=== PATIENT | female | born 1930 | race Caucasian/White ===

== ENCOUNTER 2017-02-23 02:47 | Emergency (ER) | payer MEDICARE ==
[~2017-02-23] VITALS: Ht 167.6 cm; Wt 61.8 kg
[~2017-02-23 02:47] MED LIST: ASPI81TA4 PO; CARV12.5 PO; FURO20TA2 PO; Losartan; METF500T PO; OMEGCAP2 PO; PRAV40TA2 PO; PREDNISOLONE; TYLE325T5 PO; ZOLO50TA PO
[2017-02-23] MEDS ORDERED: SERT50TA PO (03:00)
[2017-02-23] MEDS ORDERED: MORPHINE 10 MG/ML 1ML VIAL IM ONE (04:15)
[2017-02-23] MEDS ORDERED: VALI2TAB PO (09:06)
[2017-02-23] MEDS ORDERED: ONDANSETRON 4 MG ORAL DISINTEGRATING TAB (S0181) PO ONE (09:45)
[2017-02-23 10:29] VITALS: BP 148/67
== END 2017-02-23 10:32 | disposition home or self-care (01) ==
LOC: M ED 02:47
DX: M62.830 Muscle spasm of back (principal); I10 Essential (primary) hypertension; E11.9 Type 2 diabetes mellitus without complications; I25.9 Chronic ischemic heart disease, unspecified; F41.9 Anxiety disorder, unspecified; Z85.038 Personal history of other malignant neoplasm of large intestine; Z95.0 Presence of cardiac pacemaker; Z79.899 Other long term (current) drug therapy; Z79.82 Long term (current) use of aspirin; Z79.84 Long term (current) use of oral hypoglycemic drugs
CPT/HCPCS: 96372; 96374; 99283; J3360

== ENCOUNTER → 2017-04-16 | Outpatient (CLI) | payer MEDICARE ==
[~2017-04-16] MED LIST changes: +SERT50TA PO; +VALI2TAB PO
--- NOTE | 2017-04-16 09:12 | REP ---
CT Head without contrast HISTORY: Leg pain COMPARISON: None Areas of decreased attenuation are present in the periventricular white matter. This represents small-vessel ischemic disease. There is no intraparenchymal hemorrhage, acute infarct, mass or midline shift. The ventricular system and cortical sulci as well as subarachnoid space in the posterior fossa are dilated consistent with moderate volume loss. There is no extra cerebral collection. There is no fracture. Mucosal thickening is present in the left sphenoid sinus. IMPRESSION: 1. Small vessel ischemic disease. 2. Moderate volume loss. Signed by Estrada Parry MD 04/16/2017 09:04 A
== END ==
LOC: M RAD 08:39
PROVIDERS: ATTEND Psychiatry & Neurology Neurology
DX: G40.89 Other seizures (principal); M79.604 Pain in right leg

== ENCOUNTER → 2017-05-07 | Outpatient (CLI) | payer MEDICARE ==
--- NOTE | 2017-05-07 15:40 | REP ---
CT LUMBAR SPINE WITHOUT CONTRAST: HISTORY: Back pain. A diffuse disc bulge is present at the L1-2 level. There is minimal compression of the thecal sac. There is hypertrophy of the posterior articulating facets. The L1 nerves exit the neural foramina without compression. A diffuse disc bulge is present at the L2-3 level. There is hypertrophy of the ligamenta flava and posterior articulating facets. These findings produce moderate central canal stenosis. The L2 nerves exit the neural foramina without compression. A diffuse disc bulge is present at the L3-4 level. There is hypertrophy of the ligamenta flava and posterior articulating facets. These findings produce moderate central canal stenosis. The L3 nerves exit the neural foramina without compression. A diffuse disc bulge is present at the L4-5 level. There is hypertrophy of the ligamenta flava and posterior articulating facets. These findings produce severe central canal stenosis. The L4 nerves exit the neural foramina without compression. A diffuse disc bulge is present at the L5-S1 level. This abuts the thecal sac and S1 nerves. There is hypertrophy of the posterior articulating facets. There is compression of the L5 nerves in the neural foramina. The L2-3 through L5-S1 intervertebral discs are decreased in height. Vacuum phenomenon is present at the L4-5 and L5-S1 levels. These findings are consistent with disc degeneration. There is no subluxation. IMPRESSION: 1. Diffuse disc bugle at the L1-2 level with minimal thecal sac compression. 2. Moderate central canal stenosis at the L2-3 and L3-4 levels secondary to disc bulge, ligamentous and facet hypertrophy. 3. Severe central canal stenosis at the L4-5 level secondary to disc bulge, ligamentous and facet hypertrophy. 4. Diffuse disc bulge at the L5-S1 level. This abuts the thecal sac and S1 nerves. There is compression of the L5 nerves in the neural foramina. Signed by Estrada Parry MD 05/07/2017 05:06 P
== END ==
LOC: M RAD 14:31
PROVIDERS: ATTEND Orthopaedic Surgery
DX: M51.26 Other intervertebral disc displacement, lumbar region (principal); M48.061 Spinal stenosis, lumbar region without neurogenic claudication

== ENCOUNTER → 2018-05-03 | Outpatient (REF) | payer MEDICARE ==
[2018-05-03 13:27] LABS: URIC ACID 4.3 MG/DL (2.6-6.0)
== END ==
LOC: M LAB REF 12:53
DX: I12.9 Hypertensive chronic kidney disease with stage 1 through stage 4 chronic kidney disease, or unspecified chronic kidney disease (principal)
CPT/HCPCS: 84550

== ENCOUNTER → 2018-07-04 | Outpatient (CLI) | payer MEDICARE ==
--- NOTE | 2018-07-04 10:56 | REP ---
CT CHEST WITHOUT CONTRAST: HISTORY: Nonspecific abnormal finding of the lung field. Comparison CT study of the chest is from April 06, 2018. May 27, [address] study is also reviewed. CT FINDINGS: There are innumerable scattered nodular opacities in the lungs bilaterally. These have increased considerably in number since the 2010 prior study. There is diffuse peribronchial thickening suggestive of bronchitis. No definite bronchiectasis. There is some chronic atelectasis in the lingular segment of the left lower lobe, which is unchanged from both prior studies. There is linear fibrosis in the left lower lobe unchanged. There is a pleural-based opacity in the right lower lobe posterolaterally which is unchanged from the most recent prior study of April 06, 2018. Extensive vascular calcification is noted. There are scattered stable lymph nodes in the precarinal and AP window region of the mediastinum unchanged from most recent prior study of April 06, 2018. Pacemaker is seen in the right heart via the left side. No adrenal abnormality is observed. IMPRESSION: Innumerable bilateral pulmonary nodules unchanged from most recent prior study of April 06, 2018. Pleural-based opacity right lower lobe unchanged from most recent prior study. Chronic fifth fibroatelectatic changes left base. Electronically Signed by Piero Gomez MD 07/04/2018 11:00 A
== END ==
LOC: M RAD 09:21
PROVIDERS: ATTEND Internal Medicine Pulmonary Disease
DX: R91.8 Other nonspecific abnormal finding of lung field (principal)

== ENCOUNTER → 2018-09-19 | Outpatient (REF) | payer MEDICARE ==
[2018-09-23 00:07] LABS: INFLUENZA A VIRUS TITER Negative (Neg:<1:8); INFLUENZA B VIRUS TITER Negative (Neg:<1:8)
== END ==
LOC: M LAB REF 17:06
PROVIDERS: ATTEND Internal Medicine Pulmonary Disease
DX: J44.9 Chronic obstructive pulmonary disease, unspecified (principal)

== ENCOUNTER 2018-10-01 10:21 | Inpatient (IN) | payer MEDICARE ==
[~2018-10-01] VITALS: Ht 165.1 cm; Wt 62.5 kg
[~2018-10-01 10:21] MED LIST changes: +SERT-141 PO; -SERT50TA PO
[2018-10-01] MEDS ORDERED: VITA200016 PO ×2 (10:41→12:00)
[2018-10-01] MEDS ORDERED: SIMV40TA2 PO ×2 (10:41→12:00)
[2018-10-01] MEDS ORDERED: HYDR12.55 PO (10:41)
[2018-10-01] MEDS ORDERED: PRED10TA2 (10:41)
[2018-10-01] MEDS: IPRATROPIUM 0.5MG/ALBUTEROL 2.5MG INH SOL UD 3ML (DUONEB)(J7620) NEB PRN ×2 (10:43→11:27)
[2018-10-01] MEDS ORDERED: methylPREDNISolone INJ 125 MG/2 ML VIAL (J2930) IV ONE (10:45)
--- NOTE | 2018-10-01 10:49 | REP ---
Clinical: Cough and dyspnea. Comparison: 09/20/2018. Findings: Mediastinum and cardiac silhouette are stable. Lung brock demonstrate diffuse chronic interstitial changes with superimposed bibasilar infiltrates (left greater than right). No pneumothorax. Skeletal structures stable. Impression: Chronic changes with superimposed bibasilar infiltrates (left greater than right). Electronically Signed by Marcel Ruby MD 10/01/2018 10:40 A
[2018-10-01 11:18] LABS: VENOUS BASE EXCESS 3.3 (-2.0-2.0); VENOUS HCO3 28.2 MEQ/L (23.0-27.0); VENOUS O2 SATURATION 92.5 % (60.0-80.0); VENOUS PARTIAL PRESSURE CO2 44.1 mmHg (38.0-50.0); VENOUS PARTIAL PRESSURE O2 66.2 mmHg (30.0-50.0); VENOUS PH 7.424 UNITS (7.330-7.430); VENOUS STANDARD HCO3 27.3 MEQ/L; VENOUS TOTAL CO2 29.6 MEQ/L (24.0-28.0)
[2018-10-01 11:31] LABS: BASO % 0.1 % (0.0-1.0); EOS % 0.1 % (0.0-3.0); HEMATOCRIT 40.1 % (36.0-47.0); HEMOGLOBIN 12.8 g/dl (12.0-15.5); LYMPH % 0.9 % (24.0-44.0); MEAN CORPUSCULAR HEMOGLOBIN 26.9 pg (27.0-33.0); MEAN CORPUSCULAR HGB CONC 31.9 g/dl (32.0-36.5); MEAN CORPUSCULAR VOLUME 84.4 fl (80.0-96.0); MONO # 0.9 10^3/uL (0.0-0.8); MONO % 5.6 % (0.0-5.0); NEUTROPHILS # 14.1 10^3/uL (1.8-7.7); NEUTROPHILS % 92.6 % (36.0-66.0); PLATELET COUNT, AUTOMATED 192 10^3/uL (150-450); RED BLOOD COUNT 4.75 10^6/uL (4.00-5.40); WHITE BLOOD COUNT 15.3 10^3/uL (4.0-10.0)
[2018-10-01 11:45] LABS: INFLUENZA A AMPLIFICATION POSITIVE (NEGATIVE); INFLUENZA B AMPLIFICATION NEGATIVE (NEGATIVE)
[2018-10-01] MEDS ORDERED: SERT-138 PO (12:00)
[2018-10-01] MEDS ORDERED: ASPI81TA26 PO (12:00)
[2018-10-01] MEDS ORDERED: HYDR25TAB PO (12:00)
[2018-10-01] MEDS ORDERED: CARV12.5 PO (12:00)
[2018-10-01] MEDS ORDERED: TYLE325T5 PO (12:00)
[2018-10-01] MEDS ORDERED: GLIP-162 PO (12:00)
[2018-10-01] MEDS ORDERED: ANOR1AER INH (12:00)
[2018-10-01 12:04] LABS: LYMPH # 0.1 10^3/uL (1.5-4.5)
[2018-10-01] MEDS ORDERED: LORA0.5T11 PO (12:07)
[2018-10-01] MEDS ORDERED: METF500T4 PO (12:07)
[2018-10-01] MEDS ORDERED: PRED10TA2 PO (12:07)
[2018-10-01 13:17] LABS: BLOOD UREA NITROGEN 41 MG/DL (7-18); CHLORIDE LEVEL 99 MEQ/L (98-107); CREATININE FOR GFR 1.07 MG/DL (0.55-1.30); GLOMERULAR FILTRATION RATE 51.8 (>32); GLUCOSE, FASTING 157 MG/DL (70-100); SODIUM LEVEL 136 MEQ/L (136-145)
[2018-10-01 13:18] LABS: ALT/SGPT 33 U/L (12-78); BILIRUBIN,DIRECT 0.2 MG/DL (0.0-0.2); BILIRUBIN,TOTAL 0.6 MG/DL (0.2-1.0); CALCIUM LEVEL 8.4 MG/DL (8.8-10.2); CARBON DIOXIDE LEVEL 31 MEQ/L (21-32); CK-MB VALUE MASS < 1.0 NG/ML (<3.6); CPK CREATINE PHOSPHOKINASE 35 U/L (26-192); TOTAL PROTEIN 5.8 GM/DL (6.4-8.2)
[2018-10-01 13:19] LABS: ALBUMIN 2.4 GM/DL (3.2-5.2); NT-PRO BNP 7434 PG/ML (<450); TROPONIN I 0.14 NG/ML (< 0.10)
[2018-10-01] MEDS ORDERED: OSELTAMIVIR PHOSPHATE 75 MG CAP (TAMIFLU) PO ONE (13:30)
[2018-10-01] MEDS: IPRATROPIUM 0.5MG/ALBUTEROL 2.5MG INH SOL UD 3ML (DUONEB)(J7620) NEB SCH ×2 (14:00→20:12)
--- NOTE | 2018-10-01 14:13 | ECGEPIP ---
Stationary ECG Study [facility] - ED Test Date: 2018-10-01 Pat Name: SHAHID DOWNEY Department: Room: - Gender: F [employer] C[employer]: : [id number] Requested By: Chloe Brennan Order Number: [id number] Reading MD: Chloe Brennan Measurements Intervals [place] Rate: 66 P: [place]: 0 QRS: -66 QRSD: 152 T: 104 QT: 460 QTc: 484 Interpretive Statements ELECTRONIC VENTRICULAR PACEMAKER ABNORMAL RHYTHM ECG SIMILAR 01/18/13 Electronically Signed On 10-01-2018 14:13:21 EDT by Chloe Brennan
[2018-10-01] MEDS ORDERED: DEXTROSE 50% 50 ML SYRINGE IV PRN (15:00)
[2018-10-01] MEDS ORDERED: LORazepam 0.5 MG TAB PO PRN (15:00)
[2018-10-01] MEDS ORDERED: GLUCOSE 4 GM CHEW TABLET PO PRN (15:00)
[2018-10-01] MEDS ORDERED: GLUCAGON FOR INJ 1 MG VIAL (J1610) SC PRN (15:00)
[2018-10-01] MEDS ORDERED: ACETAMINOPHEN TAB 650MG DOSE (2X325MG) PO PRN (15:00)
[2018-10-01] MEDS ORDERED: PILL CRUSHER/CUTTER 1 EACH XX PRN (15:15)
[2018-10-01 17:10] VITALS: BP 125/61
[2018-10-01] MEDS: HumaLOG INSULIN (NovoLOG) PER UNIT SC SCH ×2 (17:52→20:37)
[2018-10-01] MEDS: methylPREDNISolone INJ 125 MG/2 ML VIAL (J2930) IV SCH (18:30)
[2018-10-01 20:00] VITALS: BP 116/56
[2018-10-01] MEDS: CARVedilol 12.5 MG TAB PO SCH (20:35)
[2018-10-01] MEDS: SIMVASTATIN 40 MG TAB PO SCH (20:36)
[2018-10-01] MEDS: OSELTAMIVIR PHOSPHATE 30MG CAPSULE PO SCH (20:36)
[2018-10-01] MEDS: guaiFENesin ER 600 MG TAB PO SCH (20:36)
[2018-10-01] MEDS: SERTRALINE 100 MG TAB PO SCH (20:36)
[2018-10-02] VITALS (7 sets, daily range): BP systolic 109–182; BP diastolic 54–72
[2018-10-02] MEDS: IPRATROPIUM 0.5MG/ALBUTEROL 2.5MG INH SOL UD 3ML (DUONEB)(J7620) NEB SCH ×4 (00:10→19:27)
[2018-10-02] MEDS: methylPREDNISolone INJ 125 MG/2 ML VIAL (J2930) IV SCH ×2 (03:51→11:24)
[2018-10-02 05:15] LABS: HEMATOCRIT 39.9 % (36.0-47.0); HEMOGLOBIN 12.6 g/dl (12.0-15.5); MEAN CORPUSCULAR HEMOGLOBIN 26.9 pg (27.0-33.0); MEAN CORPUSCULAR HGB CONC 31.6 g/dl (32.0-36.5); MEAN CORPUSCULAR VOLUME 85.1 fl (80.0-96.0); PLATELET COUNT, AUTOMATED 201 10^3/uL (150-450); RED BLOOD COUNT 4.69 10^6/uL (4.00-5.40); WHITE BLOOD COUNT 12.4 10^3/uL (4.0-10.0)
[2018-10-02 05:35] LABS: CALCIUM LEVEL 8.7 MG/DL (8.8-10.2); CREATININE FOR GFR 1.39 MG/DL (0.55-1.30); GLOMERULAR FILTRATION RATE 38.3 (>32)
--- NOTE | 2018-10-02 06:18 | ECHO ---
DATE OF PROCEDURE: 10/01/2018 REFERRING PHYSICIAN: Dr. Lopez INDICATION: Dyspnea. HEIGHT: 163 cm WEIGHT: 61 kg DIMENSIONS: IVS: 1.5 LV: 3.7 LVPW: 1.3 LA: 3.7 Aorta: 2.9 IVC: 1.4 FINDINGS: The study is of good technical quality. Left ventricle is normal size and hyperdynamic contractility, estimated left ventricular ejection fraction (LVEF) 70-75%. There is moderate left ventricular hypertrophy. Right ventricle was relatively poorly seen but appears grossly normal. There is severe biatrial enlargement. Aortic valve is sclerotic but mobility of leaflets is preserved. There are also degenerative abnormalities of mitral valve with thickening of mitral leaflets and mitral annular calcifications, but no obvious restriction of mobility. Tricuspid valve was poorly visualized but grossly appears normal. Same applies for pulmonic valve. There is an echo artifact in right-sided heart failure consistent with pacemaker lead. No pericardial effusion is noted. Inferior vena cava is normal size and appropriately collapses with respiration indicative of normal central venous pressure. Aortic root is normal. Aortic arch and abdominal aorta were not well seen. Doppler interrogation of aortic valve reveals no stenosis or insufficiency. There is approximately qehp-qz-akjkxzyr mitral and tricuspid insufficiency. Calculated pulmonary artery pressure is in high 30s corresponding to mild pulmonary hypertension. Evaluation of diastolic function is inconclusive due to underlying atrial fibrillation and probable ventricular pacing. CONCLUSIONS: 1. Study is of acceptable technical quality. 2. Left ventricular hypertrophy with hyperdynamic LV systolic function and estimated LVEF 70-75%. No LVOT obstruction. 3. Aortic sclerosis but no stenosis or insufficiency. 4. Ozhm-yp-dxpwihhq mitral and tricuspid insufficiency. 5. Likely normal central venous pressure and at least mild pulmonary hypertension. 6. Pacemaker wire artifact apparent in right-sided heart chambers. COMMENTS: Subacute bacterial endocarditis (SBE) prophylaxis is not recommended. The study is most consistent with hypertensive heart disease or possibly hypertrophic cardiomyopathy. [facility]
[2018-10-02] MEDS: HumaLOG INSULIN (NovoLOG) PER UNIT SC SCH ×4 (07:19→20:37)
[2018-10-02] MEDS: ENOXAPARIN 40 MG/0.4 ML SYRINGE (J1650) SC SCH (08:32)
[2018-10-02] MEDS: VITAMIN D 1,000 INTERNATIONAL UNITS TABLET PO SCH (08:33)
[2018-10-02] MEDS: OSELTAMIVIR PHOSPHATE 30MG CAPSULE PO SCH ×2 (08:34→20:36)
[2018-10-02] MEDS: ASPIRIN 81 MG ENTERIC TAB PO SCH (08:34)
[2018-10-02] MEDS: guaiFENesin ER 600 MG TAB PO SCH ×2 (08:34→20:36)
[2018-10-02] MEDS: hydroCHLOROthiazide 12.5 MG CAPSULE PO SCH (08:34)
[2018-10-02] MEDS: CARVedilol 12.5 MG TAB PO SCH ×2 (08:34→20:38)
--- NOTE | 2018-10-02 13:33 | IPNPDOC ---
Date Seen The patient was seen on 10/02/18. Progress Note SUBJECTIVE: Patient reports she is breathing more easily today she is still coughing but she is unable to get anything up she has no chest pressure and vomiting fevers or chills overnight OBJECTIVE PHYSICAL EXAMINATION: VITAL SIGNS: Please see below. GENERAL: Frail elderly female sitting in bed she does not appear to be any any acute distress she is awake alert oriented 3 she is not tachypnic HEENT: Cranial nerves grossly intact CARDIOVASCULAR: S1-S2 regular she is not tachycardic she has a pacer in place. RESPIRATORY: Improved aeration bilaterally some scattered bibasilar rales. ABDOMINAL: Bowel sounds present abdomen soft nontender EXTREMITIES: 1+ edema right greater than left LABORATORY DATA, IMAGING STUDIES, MICROBIOLOGY: Please see below. Echocardiogram: 1. Study is of acceptable technical quality. 2. Left ventricular hypertrophy with hyperdynamic LV systolic function and estimated LVEF 70-75%. No LVOT obstruction. 3. Aortic sclerosis but no stenosis or insufficiency. 4. Jquf-ws-nnculglk mitral and tricuspid insufficiency. 5. Likely normal central venous pressure and at least mild pulmonary hypertension. 6. Pacemaker wire artifact apparent in right-sided heart chambers.. DVT prophylaxis ordered?: IsLovenox ASSESSMENT AND PLAN: This is a 88-year-old female with cough and shortness of breath secondary to influenza or. PROBLEMS: 1. Cough and shortness of breath: Secondary to influenza, I'll begin tapering her prednisone continue with Tamiflu continue with Acapella chest PT Mucinex she does appear to be improving on this regimen I suspect she will let us her secretions respiratory status will continue to improve. I did speak with nursing staff will attempt to wean her oxygen continue with physical therapy occupational therapy. Hypoxic respiratory failure 2. Hypertension: History of hypertension she did not receive her morning meds and was hypertensive prior to administration continue with hydrochlorothiazide Coreg. 3. Mood disorder continue with Ativan as needed. 4. Symptomatic bradycardia: She is status post a pacer in the past follows normally with Dr. Cintron's office 5. Diabetes: Continue with sliding scale fingersticks are well controlled 6. Dyslipidemia: Continue with statin and aspirin 7. Vitamin E deficiency: Continue supplementation 8. Abnormal troponin: Likely the patient has some degree of coronary artery disease she would benefit from outpatient follow-up with her chauffeur airport limousine and stress testing, she is continued on aspirin and statin beta almita she is asymptomatic she may have had some type II demand ischemia related to her acute hypoxic respiratory presentation. Echocardiogram doesn't reveal any segmental wall motion abnormalities 9. Abnormal creatinine continue to monitor that this may be the patient's baseline DISPOSITION: Pending PT OT and resolution of her oxygen requirement possibly home within the next 24-48 hours. VS, I&O, 24H, Fishbone Vital Signs/I&O Vital Signs Date Time Temp Pulse Resp B/P (MAP) Pulse Ox O2 Delivery O2 Flow Rate FiO2 10/02/18 08:34 56 182/72 10/02/18 08:01 1.0 10/02/18 07:40 97.6 19 100 10/02/18 00:10 Nasal Cannula I&O- Last 24 Hours up to 6 AM 10/02/18 06:00 Intake Total 240 ml Output Total 0 ml Balance 240 ml Laboratory Data 24H LABS Laboratory Tests 2 10/01/18 14:02: Lactic Acid Level 1.2 10/01/18 14:30: Troponin I 0.16H 10/01/18 15:15: 10/01/18 17:28: Bedside Glucose (Misc Panel) 378H 10/01/18 20:02: Bedside Glucose (Misc Panel) 376H 10/01/18 20:30: Troponin I 0.14H 10/02/18 04:38: Nucleated Red Blood Cells % (auto) 0.0, Anion Gap 9, Glomerular Filtration Rate 38.3, Blood Urea Nitrogen 47H, Creatinine 1.39H, Sodium Level 137, Potassium Level 4.0, Chloride Level 100, Carbon Dioxide Level 28, Calcium Level 8.7L 10/02/18 11:32: Bedside Glucose (Misc Panel) 244H CBC/BMP Laboratory Tests 10/02/18 04:38 Red Blood Count 4.69, Mean Corpuscular Volume 85.1, Mean Corpuscular Hemoglobin 26.9 L, Mean Corpuscular Hemoglobin Concent 31.6 L, Red Cell Distribution Width 14.3, Calcium Level 8.7 L Microbiology Microbiology 10/01/18 Blood Culture, Received Pending 10/01/18 Blood Culture, Received Pending 10/01/18 Blood Culture - Preliminary, Resulted No growth after 24 hours . All specim... 10/01/18 Blood Culture - Preliminary, Resulted No growth after 24 hours . All specim... LIZZIE BASSETT MD Oct 02, 2018 13:33
--- NOTE | 2018-10-02 15:37 | REP ---
Clinical: Right lower extremity pain and swelling . Technique: Domínguez scale and color Doppler evaluation using linear high frequency transducer. Findings: Ultrasound examination of the right lower extremity deep venous structures from the common femoral vein to the popliteal vein demonstrates normal compressibility flow and wave patterns in response to respiration and augmentation. There is no evidence for deep venous thrombosis. Impression: No evidence for deep venous thrombosis. Electronically Signed by Marcel Ruby MD 10/02/2018 03:28 P
[2018-10-02] MEDS: IPRATROPIUM 0.5MG/ALBUTEROL 2.5MG INH SOL UD 3ML (DUONEB)(J7620) NEB PRN (16:07)
--- NOTE | 2018-10-02 20:33 | HPE ---
DATE OF ADMISSION: 10/01/2018 PRIMARY CARE PROVIDER: Dr. Hovrath PAROLE AGENT: Dr. Devi PROFESSOR OF PHYSICAL EDUCATION: Dr. Cintron HISTORY OF PRESENT ILLNESS: Ms. Figueroa is an 88-year-old female with a pertinent past medical history of histoplasmosis in 2000, status post left upper lobectomy in February 2001, positive lung tissue for MAC in 2000, who presented to the emergency department (ED) because of physical debridement, weakness and cough. These symptoms have been going on since September 19, 2018. She was evaluated by her final inspector movement assembly, Dr. Devi and she was started on a prednisone taper for 2 1/2 weeks. She states that when the symptoms got improved, but in the last couple of days, she noticed that she was significantly more weaker, had shortness of breath and her cough has returned. She had a temperature of 100.4 this morning, but it lowered itself without any medical intervention to 98. She denies any nausea, vomiting, diarrhea or constipation. She denies having any fevers, chills, night sweats, weight loss. She does have recent sick contact, earlier in August she had two deaths in the family and her daughter went to two funerals and wakes. At these events, there were multiple family members, who were sick and some were sick with the flu. She states that her daughter had flu as well recently. She denies having any antibiotic or taking any Tamiflu. She denies having a productive cough, but her cough sounds wet in nature. In the emergency room (ER), her vitals showed a temperature of 100.0, a pulse oximetry of 91% on room air and she was placed on nasal canula and she is saturating at 96% with 2 liters. X-ray in the emergency room (ER) did show chronic changes with superimposed bibasilar infiltrates, left greater than right. Her laboratory shows a leukocytosis of 15.3. Serology was positive for influenza A. The hospitalist team was then called for hospital admission. PAST MEDICAL HISTORY: 1. Piv-fwlemsl-pfkdvexbu diabetes. 2. Hypertension. 3. Hypercholesterolemia. 4. Rectal cancer status post anterior resection. 5. Histoplasmosis spores in 2000. 6. 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 SURGICAL HISTORY: 1. Appendectomy. 2. Tonsillectomy. 3. Lower anterior colon resection. 4. Left upper lobectomy secondary to histoplasmosis and chronic lesions and satellite lesions for histoplasmosis. 5. Pacemaker insertion. 6. Cholecystectomy. MEDICATIONS: - acetaminophen 650 mg by mouth every 4 hours as needed for pain - Anoro one inhaled daily - aspirin 81 mg by mouth daily - carvedilol 18.7 mg by mouth twice a day - glipizide 5 mg by mouth daily - hydrochlorothiazide 12.5 mg by mouth daily - lorazepam 0.5 mg by mouth three times a day as needed for anxiety - is reported metformin 1000 mg by mouth twice a day, but when questing, the patient states she is not taking that. - prednisone taper currently on 20 mg daily, started the taper on September 19. - sertraline 100 mg by mouth at bedtime (q.h.s.) - simvastatin 50 mg by mouth at bedtime (q.h.s.) - vitamin D 2000 units by mouth daily DRUG ALLERGIES: No known drug allergies. SOCIAL HISTORY: She lives with her for 65 years. She denies every smoking, using any illicit drugs, rarely drinks alcohol, occasionally once in a while on social occasions. Has no pets at home. Has a recent travel to [place] around September 05. She denies having any exposure to farm animals as well. PHYSICAL EXAMINATION: VITALS: Temperature 97.2, pulse 60, respirations 22, blood pressure 118/55 (76 MAP) pulse oximetry of 96% on 2 liters of nasal cannula. GENERAL: This is a very pleasant 88-year-old female, who does not appear in acute distress, does need oxygen to appropriately answer questions. Does not use any accessory muscle and not short of breath with questioning. HEENT: Atraumatic, normocephalic. Pupils equal, round and reactive. Fair dentition. No lymphadenopathy. HEART: Faint heart sounds. No audible murmurs, rubs or gallops due to adventitious lung sounds. LUNGS: Diffuse inspiratory rhonchi, not improving with clearing of the throat. There is some expiratory wheezing at the bases bibasilarly. ABDOMEN: Soft, nontender. Positive bowel sounds in all four quadrants. EXTREMITIES: No lower extremity edema or tenderness at the calves. LABORATORY: Hematology: White blood count (WBC) 50.3, hemoglobin 12.8, hematocrit 40.1, platelets 192. VBG pH is 7.41. Chemistries: Electrolytes are within normal limits. Anion gap is 6. GUN is 31, creatinine is 1.07, glomerular filtration rate (GFR) is 51.8. Calculated creatinine clearance 34. Fasting glucose 157. Lactic acid 2.2. Repeat lactic acid 1.2. Calcium 8.4. Liver profile within normal limits. Troponin 0.14. Repeat at 2 o'clock is 0.16. Pro BNP is 7,434. Total protein 5.4, albumin 2.4. Procalcitonin pending. Thyroid simulating hormone (TSH) 1.330. Serology: Influenza A positive. Blood culture times four pending. IMAGING: Chest x-ray shows chronic changes with superimposed bibasilarly infiltrates, left greater than the right. ASSESSMENT AND PLAN: This is an 88-year-old female with a pertinent past medical history of left upper lobectomy, status post histoplasmosis necrotic nodules in satellite lesions from histoplasmosis, myxobacterium avium complex (MAC) in lung tissue in 2000presented to the emergency department (ED) for shortness of breath, weakness and cough. The patient will be admitted for the following problems: 1. Shortness of breath, weakness and cough secondary to Influenza A. The patient was positive for influenza A. Based on a creatinine clearance of 34, she needs to be placed on Tamiflu 30 mg by mouth twice a day use for five days. We will stop her prednisone by mouth dose outpatient. We will start Solu-Medrol 60 mg q 8 hours IV. Will also add guaifenesin 60 mg twice a day by mouth as well. We have put in respiratory physical therapy (PT) and she has to use an Acapella to help with her wet cough if she is unable to produce. Will put titration orders to maintain stat above 94% for the patient has never previously smoked and will have scheduled DuoNeb, as well as as needed DuoNeb on board as needed for shortness of breath. 2. History of bhm-eeenusn-ketohbipx diabetes. Will hold her glipizide and we have placed her on insulin sliding scale before meals (ac) and at bedtime (q.h.s.) while admitted. Because she is on Solu-Medrol, will have to have glucose monitoring and we will add long-acting if needed pending her sugar levels. 3. History of high cholesterol. We will continue with her home simvastatin 40 mg at night. 4. Hypertension. Will continue with her carvedilol 18.75 mg twice a day by mouth and her hydrochlorothiazide 12.5 mg daily. 5. History of anxiety. Will continue with her sertraline 100 mg at bedtime (q.h.s.), as well as her Ativan 0.25 mg as needed for anxiety. 6. History of pacemaker. 7. History of lobectomy secondary to histoplasmosis, necrotic nodules. We will try to obtain records from her final inspector movement assembly for the last three office visits so we can review them. 8. Deep vein thrombosis (DVT) prophylaxis. Lovenox 40 mg daily. My faculty preceptor for this patient encounter was physically present during the encounter and was fully available. All aspects of the patient interview, examination, medical decision making process, and medical care plan development were reviewed and approved by the faculty preceptor. The faculty preceptor is aware and concurs with the plan as stated in the body of this note and will attest to such by his/her cosignature.
[2018-10-02] MEDS: SIMVASTATIN 40 MG TAB PO SCH (20:37)
[2018-10-02] MEDS: SERTRALINE 100 MG TAB PO SCH (20:37)
[2018-10-03] VITALS (7 sets, daily range): BP systolic 134–198; BP diastolic 60–89
[2018-10-03] MEDS: IPRATROPIUM 0.5MG/ALBUTEROL 2.5MG INH SOL UD 3ML (DUONEB)(J7620) NEB SCH ×4 (00:06→20:28)
[2018-10-03 05:20] LABS: HEMATOCRIT 36.6 % (36.0-47.0); HEMOGLOBIN 11.5 g/dl (12.0-15.5); MEAN CORPUSCULAR HEMOGLOBIN 26.8 pg (27.0-33.0); MEAN CORPUSCULAR HGB CONC 31.4 g/dl (32.0-36.5); MEAN CORPUSCULAR VOLUME 85.3 fl (80.0-96.0); PLATELET COUNT, AUTOMATED 234 10^3/uL (150-450); RED BLOOD COUNT 4.29 10^6/uL (4.00-5.40); WHITE BLOOD COUNT 21.3 10^3/uL (4.0-10.0)
[2018-10-03 05:38] LABS: CALCIUM LEVEL 8.6 MG/DL (8.8-10.2); CREATININE FOR GFR 1.26 MG/DL (0.55-1.30); GLOMERULAR FILTRATION RATE 42.9 (>32); POTASSIUM SERUM 4.3 MEQ/L (3.5-5.1)
[2018-10-03] MEDS: CARVedilol 12.5 MG TAB PO SCH ×2 (09:00→20:54)
[2018-10-03] MEDS: guaiFENesin ER 600 MG TAB PO SCH ×2 (09:39→20:53)
[2018-10-03] MEDS: predniSONE 20 MG TAB PO SCH (09:39)
[2018-10-03] MEDS: VITAMIN D 1,000 INTERNATIONAL UNITS TABLET PO SCH (09:40)
[2018-10-03] MEDS: hydroCHLOROthiazide 12.5 MG CAPSULE PO SCH (09:40)
[2018-10-03] MEDS: HumaLOG INSULIN (NovoLOG) PER UNIT SC SCH ×4 (09:41→20:53)
[2018-10-03] MEDS: ASPIRIN 81 MG ENTERIC TAB PO SCH (09:41)
[2018-10-03] MEDS: OSELTAMIVIR PHOSPHATE 30MG CAPSULE PO SCH ×2 (09:41→20:53)
[2018-10-03] MEDS: ENOXAPARIN 40 MG/0.4 ML SYRINGE (J1650) SC SCH (09:43)
[2018-10-03] MEDS ORDERED: SLF 3 ML SYR IV PRN (10:15)
[2018-10-03] MEDS: SLF 3 ML SYR IV SCH ×2 (13:11→22:00)
--- NOTE | 2018-10-03 13:51 | IPNPDOC ---
Date Seen The patient was seen on 10/03/18. Progress Note SUBJECTIVE: Patient is a 88-year-old female with cough and shortness of breath secondary to influenza. She was seen and examined this morning. She states she is feeling much better since she's been here. She continues to have a new wet cough that stuck in her throat that unable to be reproduced. She has not used her Acapella since being up on the floors for she might have misplaced it. She has gotten chest PT which provided some relief. She has no complaints at this time. PT has worked with her this morning and states that she is not safe for discharge for she has 14 steps that she has to use in her daily life at home. She has no complaints at this time. She denies any shortness of breath, chest pain, nausea, diarrhea, constipation. Overnight events were reported by nursing. OBJECTIVE PHYSICAL EXAMINATION: VITAL SIGNS: Please see below. GENERAL: Frail elderly female sitting in bed she does not appear to be any any acute distress she is awake alert oriented 3 she is not tachypnic does not use any accessory muscles to talk HEENT: Atraumatic normocephalic pupils are equal round and reactive moist mucous membranes no JVD CARDIOVASCULAR: S1-S2 regular she is not tachycardic she has a pacer in place. RESPIRATORY: Improved aeration bilaterally some scattered bibasilar rales. With upper respiratory adventitious sounds but improved since admission ABDOMINAL:Bowel sounds present abdomen soft nontender EXTREMITIES: 1+ edema right greater than left LABORATORY DATA, IMAGING STUDIES, MICROBIOLOGY: Please see below. Echocardiogram: 10/01/2018 Dr. Mike 1. Study is of acceptable technical quality. 2. Left ventricular hypertrophy with hyperdynamic LV systolic function and estimated LVEF 70-75%. No LVOT obstruction. 3. Aortic sclerosis but no stenosis or insufficiency. 4. Kzbm-ar-mlufnwxi mitral and tricuspid insufficiency. 5. Likely normal central venous pressure and at least mild pulmonary hypertension. 6. Pacemaker wire artifact apparent in right-sided heart chambers.. 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 PROBLEMS: Shortness of breath, weakness and cough secondary to Influenza A. -Tamiflu 30 mg by mouth twice a day 5 days -c/w steriod PO taper , guaifenesin 60 mg twice a day by mouth - History of tqn-zbdsygr-foykfmjbe diabetes. -Held home glipizide -c/w ISS History of high cholesterol. c/w home simvastatin 40 mg at night. Hypertension. - c/w carvedilol 18.75 mg twice a day by mouth and her hydrochlorothiazide 12.5 mg daily. History of anxiety. -c/w sertraline 100 mg at bedtime (q.h.s.), as well as her Ativan 0.25 mg as needed for anxiety. History of pacemaker. History of lobectomy secondary to histoplasmosis, necrotic nodules Vitamin E deficiency -c/w supplementation PT -Pending clearance DVT prophylaxis -Lovenox 40 mg SC Disposition: Pending PT clearance possible discharge in 24-48 hours VS, [facility]&O[facility] Vital Signs/I&O Vital Signs Date Time Temp Pulse Resp B/P (MAP) Pulse Ox O2 Delivery O2 Flow Rate FiO2 10/03/18 09:00 60 10/03/18 08:00 98.4 18 153/68 (96) 90 10/02/18 08:01 1.0 10/02/18 00:10 Nasal Cannula I&O- Last 24 Hours up to 6 AM 10/03/18 06:00 Intake Total 240 ml Output Total 0 ml Balance 240 ml Laboratory Data 24H LABS Laboratory Tests 2 10/02/18 17:05: Bedside Glucose (Misc Panel) 256H 10/02/18 20:16: Bedside Glucose (Misc Panel) 334H 10/03/18 04:46: Nucleated Red Blood Cells % (auto) 0.0, Anion Gap 5L, Glomerular Filtration Rate 42.9, Blood Urea Nitrogen 51H, Creatinine 1.26, Sodium Level 139, Potassium Level 4.3, Chloride Level 101, Carbon Dioxide Level 33H, Calcium Level 8.6L 10/03/18 11:21: Bedside Glucose (Misc Panel) 203H CBC/BMP Laboratory Tests 10/03/18 04:46 Red Blood Count 4.29, Mean Corpuscular Volume 85.3, Mean Corpuscular Hemoglobin 26.8 L, Mean Corpuscular Hemoglobin Concent 31.4 L, Red Cell Distribution Width 14.4, Calcium Level 8.6 L Microbiology Microbiology 10/01/18 Blood Culture - Preliminary, Resulted No growth after 24 hours . All specim... 10/01/18 Blood Culture - Preliminary, Resulted No growth after 24 hours . All specim... 10/01/18 Blood Culture - Preliminary, Resulted No Growth after 48 hours. All Specime... 10/01/18 Blood Culture - Preliminary, Resulted No Growth after 48 hours. All Specime... GME ATTESTATION GME ATTESTATION My faculty preceptor for this patient encounter was physically present during the encounter and was fully available. All aspects of the patient interview, examination, medical decision making process, and medical care plan development were reviewed and approved by the faculty preceptor. The faculty preceptor is aware and concurs with the plan as stated in the body of this note and will attest to such by his/her cosignature. PAULINA RUBIO DO Oct 03, 2018 11:35
[2018-10-03] MEDS ORDERED: BISACODYL 10 MG SUPP PR ONE (15:45)
[2018-10-03] MEDS: IPRATROPIUM 0.5MG/ALBUTEROL 2.5MG INH SOL UD 3ML (DUONEB)(J7620) NEB PRN (16:34)
[2018-10-03] MEDS: SIMVASTATIN 40 MG TAB PO SCH (20:53)
[2018-10-03] MEDS: SERTRALINE 100 MG TAB PO SCH (20:53)
[2018-10-04] MEDS: IPRATROPIUM 0.5MG/ALBUTEROL 2.5MG INH SOL UD 3ML (DUONEB)(J7620) NEB SCH ×4 (01:36→21:13)
[2018-10-04 01:55] VITALS: BP 168/62
[2018-10-04] MEDS: SLF 3 ML SYR IV SCH ×3 (05:26→21:13)
[2018-10-04 06:00] VITALS: BP 150/70
[2018-10-04 06:12] LABS: HEMATOCRIT 37.8 % (36.0-47.0); HEMOGLOBIN 12.1 g/dl (12.0-15.5); MEAN CORPUSCULAR HEMOGLOBIN 27.3 pg (27.0-33.0); MEAN CORPUSCULAR VOLUME 85.1 fl (80.0-96.0); PLATELET COUNT, AUTOMATED 185 10^3/uL (150-450); RED BLOOD COUNT 4.44 10^6/uL (4.00-5.40); WHITE BLOOD COUNT 12.4 10^3/uL (4.0-10.0)
[2018-10-04 06:32] LABS: CALCIUM LEVEL 8.7 MG/DL (8.8-10.2); CREATININE FOR GFR 1.03 MG/DL (0.55-1.30); GLOMERULAR FILTRATION RATE 54.1 (>32); POTASSIUM SERUM 4.2 MEQ/L (3.5-5.1)
[2018-10-04 07:56] VITALS: BP 160/68
[2018-10-04] MEDS: ENOXAPARIN 40 MG/0.4 ML SYRINGE (J1650) SC SCH (08:25)
[2018-10-04] MEDS: VITAMIN D 1,000 INTERNATIONAL UNITS TABLET PO SCH (08:26)
[2018-10-04] MEDS: HumaLOG INSULIN (NovoLOG) PER UNIT SC SCH ×4 (08:26→21:00)
[2018-10-04] MEDS: ASPIRIN 81 MG ENTERIC TAB PO SCH (08:27)
[2018-10-04] MEDS: predniSONE 20 MG TAB PO SCH (08:27)
[2018-10-04] MEDS: CARVedilol 12.5 MG TAB PO SCH ×3 (08:27→21:00)
[2018-10-04] MEDS: guaiFENesin ER 600 MG TAB PO SCH ×2 (08:27→21:12)
[2018-10-04] MEDS: OSELTAMIVIR PHOSPHATE 30MG CAPSULE PO SCH ×2 (08:27→21:12)
[2018-10-04] MEDS: hydroCHLOROthiazide 12.5 MG CAPSULE PO SCH (08:27)
[2018-10-04] MEDS ORDERED: guaiFENesin ER 600 MG TAB PO ONE (10:45)
--- NOTE | 2018-10-04 10:54 | IPNPDOC ---
Date Seen The patient was seen on 10/04/18. Progress Note SUBJECTIVE: Patient is a 88-year-old female with cough and shortness of breath secondary to influenza. She was seen and examined this morning. Appeared to be using accessory muscles this morning and slightly short of breath. Patient is anxious that she is still in the hospital she still has this cough no it is not as severe. Her abdominal pain after all the coughing has improved this morning as well. She did not work with PT this morning before she wanted to have her breakfast first. She was slightly constipated yesterday and requested a Dulcolax suppository, And has been added as when necessary. She has no other complaints at this time. She denies any anxiety palpitations night sweats nausea vomiting diarrhea. No overnight event have been reported by nursing. Her blood pressure has been slightly elevated and she has not gotten her Coreg doses for her heart rate has been in the low 60s. OBJECTIVE PHYSICAL EXAMINATION: VITAL SIGNS: Please see below. GENERAL: Frail elderly female sitting in bed she does not appear to be any any acute distress she is awake alert oriented 3 she is slightly tachypneic using a little bit of accessory muscle and appears short of breath with continued conversation HEENT: Atraumatic normocephalic pupils are equal round and reactive moist mucous membranes no JVD CARDIOVASCULAR: S1-S2 regular she is not tachycardic she has a pacer in place. RESPIRATORY: Improved aeration bilaterally some scattered bibasilar rales left > right. With upper respiratory adventitious sounds but improved since admission ABDOMINAL:Bowel sounds present abdomen soft nontender EXTREMITIES: 1+ edema right greater than left LABORATORY DATA, IMAGING STUDIES, MICROBIOLOGY: Please see below. Echocardiogram: 10/01/2018 Dr. Mike 1. Study is of acceptable technical quality. 2. Left ventricular hypertrophy with hyperdynamic LV systolic function and estimated LVEF 70-75%. No LVOT obstruction. 3. Aortic sclerosis but no stenosis or insufficiency. 4. Rvtl-qf-gtvwwdaa mitral and tricuspid insufficiency. 5. Likely normal central venous pressure and at least mild pulmonary hyper tension. 6. Pacemaker wire artifact apparent in right-sided heart chambers.. 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 PROBLEMS: Shortness of breath, weakness and cough secondary to Influenza A. -Tamiflu 30 mg by mouth twice a day 5 days - will get repeat imaging -c/w steriod PO taper - increased guaifenesin 1,200 mg twice a day by mouth History of ild-dpvyccl-tdmsahhlf diabetes. -Held home glipizide -c/w ISS History of high cholesterol. c/w home simvastatin 40 mg at night. Hypertension. - c/w carvedilol 18.75 mg twice a day by mouth and her hydrochlorothiazide 12.5 mg daily. -Her carvedilol has not been administrated multiple times because she had a low resting heart rate, does have pacer in place. -increased her hydrochlorothiazide to 25 mg daily -will monitor History of anxiety. -c/w sertraline 100 mg at bedtime (q.h.s.), as well as her Ativan 0.25 mg as needed for anxiety. History of pacemaker. History of lobectomy secondary to histoplasmosis, necrotic nodules Vitamin E deficiency -c/w supplementation PT -Pending clearance DVT prophylaxis -Lovenox 40 mg SC Disposition: Pending PT clearance possible discharge in 24-48 hours [facility] Vital Signs/I&O Vital Signs Date Time Temp Pulse Resp B/P (MAP) Pulse Ox O2 Delivery O2 Flow Rate FiO2 10/04/18 10:32 60 160/68 10/04/18 10:15 Room Air 10/04/18 07:56 98.6 20 94 10/02/18 08:01 1.0 I&O- Last 24 Hours up to 6 AM 10/04/18 06:00 Intake Total 600 ml Output Total 1050 ml Balance -450 ml Laboratory Data 24H LABS Laboratory Tests 2 10/03/18 11:21: Bedside Glucose (Misc Panel) 203H 10/03/18 17:19: Bedside Glucose (Misc Panel) 128H 10/03/18 20:31: Bedside Glucose (Misc Panel) 251H 10/04/18 05:40: Nucleated Red Blood Cells % (auto) 0.0, Anion Gap 4L, Glomerular Filtration Rate 54.1, Blood Urea Nitrogen 48H, Creatinine 1.03, Sodium Level 138, Potassium Leve l 4.2, Chloride Level 103, Carbon Dioxide Level 31, Calcium Level 8.7L CBC/BMP Laboratory Tests 10/04/18 05:40 Red Blood Count 4.44, Mean Corpuscular Volume 85.1, Mean Corpuscular Hemoglobin 27.3, Mean Corpuscular Hemoglobin Concent 32.0, Red Cell Distribution Width 14.4, Calcium Level 8.7 L Microbiology Microbiology 10/01/18 Blood Culture - Preliminary, Resulted No Growth after 48 hours. All Specime... 10/01/18 Blood Culture - Preliminary, Resulted No Growth after 48 hours. All Specime... 10/01/18 Blood Culture - Preliminary, Resulted No Growth after 48 hours. All Specime... 10/01/18 Blood Culture - Preliminary, Resulted No Growth after 48 hours. All Specime... GME ATTESTATION GME ATTESTATION My faculty preceptor for this patient encounter was physically present during the encounter and was fully available. All aspects of the patient interview, examination, medical decision making process, and medical care plan development were reviewed and approved by the faculty preceptor. The faculty preceptor is aware and concurs with the plan as stated in the body of this note and will attest to such by his/her cosignature. ATTENDING NOTE I, Moose Fuller, have both independently examined this patient as well as reviewed the documentation. I have discussed in detail with the resident the findings and plan of treatment as documented in the residents documentation. I will continue to follow the patient and offer further guidance to the patients care as necessary during this hospital stay. PAULINA RUBIO DO Oct 04, 2018 10:54 MOOSE FULLER MD Oct 04, 2018 18:51
[2018-10-04] MEDS ORDERED: hydroCHLOROthiazide 12.5 MG CAPSULE PO ONE (11:00)
[2018-10-04] MEDS ORDERED: BISACODYL 10 MG SUPP PR PRN (11:00)
--- NOTE | 2018-10-04 11:49 | REP ---
PA and lateral chest: Comparisons are the portable chest of 10/01/2018, PA and lateral chest of 09/20/2018 and PA chest of 03/22/2018. There are nodular densities inferiorly in the right lung as. There is a left lower lobe infiltrate. Cardiac size appears enlarged. There is a dual-chamber pacemaker, unchanged from all prior studies. Impression: Bibasilar densities as described. CT might be considered for further evaluation. Electronically Signed by Angel Hernandez MD 10/04/2018 11:40 A
[2018-10-04 14:00] VITALS: BP 146/68
[2018-10-04 16:00] VITALS: BP 138/66
--- NOTE | 2018-10-04 18:34 | REP ---
CT of the chest without IV contrast: Comparisons are 07/04/2018 and a remote study of 07/22/2012. There are multiple irregular nodular densities throughout all lobes of both lungs. These have increased from 07/22/2012. I have also increased in size in the right middle lobe and lingula compared to 07/04/2018. I also suspect bronchiectasis, particularly in the upper lobes, unchanged. No definite mediastinal lymph node enlargement. No axillary lymph node enlargement. In the absence of IV contrast the study is insensitive for hilar lymph node enlargement. The thoracic aorta is unremarkable. Cardiac size is enlarged. There is a pacemaker. No pericardial effusion. The visualized upper abdominal contents are unremarkable. Impression: Multiple irregular nodules as described. Bronchiolar wall thickening, possibly bronchiectasis. 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 Cardiomegaly and pacemaker are unchanged. Electronically Signed by Angel Hernandez MD 10/04/2018 06:25 P
[2018-10-04] MEDS: SIMVASTATIN 40 MG TAB PO SCH (21:12)
[2018-10-04] MEDS: SERTRALINE 100 MG TAB PO SCH (21:12)
[2018-10-04 22:00] VITALS: BP 121/58
[2018-10-05] MEDS: IPRATROPIUM 0.5MG/ALBUTEROL 2.5MG INH SOL UD 3ML (DUONEB)(J7620) NEB SCH ×4 (02:04→19:42)
[2018-10-05] MEDS: CEFDINIR 300 MG CAP (OMNICEF) PO SCH ×3 (03:45→22:17)
[2018-10-05] MEDS: SLF 3 ML SYR IV SCH ×3 (05:43→22:23)
[2018-10-05 06:00] VITALS: BP 138/83
[2018-10-05 07:35] LABS: HEMATOCRIT 42.8 % (36.0-47.0); HEMOGLOBIN 13.6 g/dl (12.0-15.5); MEAN CORPUSCULAR HGB CONC 31.8 g/dl (32.0-36.5); MEAN CORPUSCULAR VOLUME 84.9 fl (80.0-96.0); PLATELET COUNT, AUTOMATED 193 10^3/uL (150-450); RED BLOOD COUNT 5.04 10^6/uL (4.00-5.40); WHITE BLOOD COUNT 13.8 10^3/uL (4.0-10.0)
[2018-10-05 08:02] LABS: CALCIUM LEVEL 8.7 MG/DL (8.8-10.2); CREATININE FOR GFR 1.09 MG/DL (0.55-1.30); GLOMERULAR FILTRATION RATE 50.7 (>32); POTASSIUM SERUM 3.6 MEQ/L (3.5-5.1)
[2018-10-05] MEDS: ENOXAPARIN 40 MG/0.4 ML SYRINGE (J1650) SC SCH (08:04)
[2018-10-05] MEDS: OSELTAMIVIR PHOSPHATE 30MG CAPSULE PO SCH ×2 (08:05→22:21)
[2018-10-05] MEDS: ASPIRIN 81 MG ENTERIC TAB PO SCH (08:05)
[2018-10-05] MEDS: HumaLOG INSULIN (NovoLOG) PER UNIT SC SCH ×4 (08:05→21:00)
[2018-10-05] MEDS: VITAMIN D 1,000 INTERNATIONAL UNITS TABLET PO SCH (08:05)
[2018-10-05] MEDS: CARVedilol 12.5 MG TAB PO SCH ×2 (08:06→21:00)
[2018-10-05] MEDS: hydroCHLOROthiazide 25 MG TAB PO SCH (08:06)
[2018-10-05] MEDS: guaiFENesin ER 600 MG TAB PO SCH ×2 (08:07→22:21)
[2018-10-05] MEDS: predniSONE 20 MG TAB PO SCH (08:07)
[2018-10-05] MEDS ORDERED: SODIUM CHLORIDE HYPERTONIC 3% 15ML NEB SOL NEB ONE (09:00)
[2018-10-05] MEDS ORDERED: SENOKOT S TAB PO PRN (09:15)
[2018-10-05] MEDS ORDERED: MOM 30ML SUSPENSION UDC PO PRN (09:15)
[2018-10-05] MEDS ORDERED: AZITHROMYCIN INJ 500 MG, VIAL MATE ADAPTER 1 EACH in D5W 250 ML IV ONE (12:00)
--- NOTE | 2018-10-05 12:35 | IPNPDOC ---
Date Seen The patient was seen on 10/05/18. Progress Note SUBJECTIVE: Patient is a 88-year-old female with cough and shortness of breath secondary to influenza. She was seen and examined this morning. Does not appear to use accessory muscles or short of breath sitting up on the chair appropriately answering questions. CT of the lungs came back overnight positive for possible cryptogenic pneumonia. Cefdinir 300 mg every 12 hours started last night. She continues to deny having a productive cough she states the cough is still stuck in her throat. She's been afebrile, no increased oxygen demand and respiration rate has been within normal limits. Still has to work with PT, and no overnight events were reported. OBJECTIVE PHYSICAL EXAMINATION: VITAL SIGNS: Please see below. GENERAL: Frail elderly female sitting on chair she does not appear to be any any acute distress she is awake alert oriented 3 Appears Short of Breath with Continued Conversation HEENT: Atraumatic normocephalic pupils are equal round and reactive moist mucous membranes no JVD CARDIOVASCULAR: S1-S2 regular she is not tachycardic she has a pacer in place. RESPIRATORY: Improved aeration bilaterally some scattered bibasilar rales left > right (improving). ABDOMINAL:Bowel sounds present abdomen soft nontender EXTREMITIES: 1+ edema right greater than left LABORATORY DATA, IMAGING STUDIES, MICROBIOLOGY: Please see below. Echocardiogram: 10/01/2018 Dr. Mike 1. Study is of acceptable technical quality. 2. Left ventricular hypertrophy with hyperdynamic LV systolic function and estimated LVEF 70-75%. No LVOT obstruction. 3. Aortic sclerosis but no stenosis or insufficiency. 4. Cfvf-eu-nilbxnuh mitral and tricuspid insufficiency. 5. Likely normal central venous pressure and at least mild pulmonary hypertension. 6. Pacemaker wire artifact apparent in right-sided heart chambers.. 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 PROBLEMS: Shortness of breath, weakness and cough - possibly 2/2 Influenza A; possibly with a component 2/2 cryptogenic pneumonia - Tamiflu 30 mg by mouth BID x 5 days - CT chest the for bronchiectasis and bronchial wall thickening - will get repeat imaging - c/w steroid PO taper - c/w guaifenesin 1,200 mg twice a day by mouth -Induction sputum because patient unable to produce sputum and send for culture. -Positive lung tissue for mycobacterium avium complex (MAC) in 2000. -start cefdinr broad coverage and azithromycin for atypical coverage for 5 days. History of fxq-lzbrfej-wntufnaoq diabetes. -Held home glipizide -c/w ISS History of high cholesterol. c/w home simvastatin 40 mg at night. Hypertension. - c/w carvedilol 18.75 mg twice a day by mouth and her hydrochlorothiazide 12.5 mg daily. -Her carvedilol has not been administrated multiple times because she had a low resting heart rate, does have pacer in place. -continue hydrochlorothiazide 25 mg daily History of anxiety. -c/w sertraline 100 mg at bedtime (q.h.s.), as well as her Ativan 0.25 mg as needed for anxiety. History of pacemaker. History of lobectomy secondary to histoplasmosis, necrotic nodules Vitamin E deficiency -c/w supplementation PT -Pending clearance DVT prophylaxis -Lovenox 40 mg SC VS, I&O, 24H, [facility] Vital Signs/I&O Vital Signs Date Time Temp Pulse Resp B/P (MAP) Pulse Ox O2 Delivery O2 Flow Rate FiO2 10/05/18 08:06 60 136/62 10/05/18 06:00 97.8 18 91 10/04/18 10:15 Room Air 10/02/18 08:01 1.0 I&O- Last 24 Hours up to 6 AM 10/05/18 06:00 Intake Total 740 ml Output Total 1350 ml Balance -610 ml Laboratory Data 24H LABS Laboratory Tests 2 10/04/18 17:11: Bedside Glucose (Misc Panel) 227H 10/04/18 20:27: Bedside Glucose (Misc Panel) 220H 10/05/18 07:01: Nucleated Red Blood Cells % (auto) 0.0, Anion Gap 5L, Glomerular Filtration Rate 50.7, Blood Urea Nitrogen 44H, Creatinine 1.09, Sodium Level 138, Potassium Level 3.6, Chloride Level 101, Carbon Dioxide Level 32, Calcium Level 8.7L 10/05/18 07:44: Bedside Glucose (Misc Panel) 140H 10/05/18 11:35: Bedside Glucose (Misc Panel) 162H CBC/BMP Laboratory Tests 10/05/18 07:01 Red Blood Count 5.04, Mean Corpuscular Volume 84.9, Mean Corpuscular Hemoglobin 27.0, Mean Corpuscular Hemoglobin Concent 31.8 L, Red Cell Distribution Width 14.5, Calcium Level 8.7 L Microbiology Microbiology 10/01/18 Blood Culture - Preliminary, Resulted No Growth after 72 hours. All specime... 10/01/18 Blood Culture - Preliminary, Resulted No Growth after 72 hours. All specime... 10/01/18 Blood Culture - Preliminary, Resulted No Growth after 72 hours. All specime... 10/01/18 Blood Culture - Preliminary, Resulted No Growth after 72 hours. All specime... 10/05/18 Gram Stain, Received Pending 10/05/18 Sputum Culture, Received Pending GME ATTESTATION GME ATTESTATION My faculty preceptor for this patient encounter was physically present during the encounter and was fully available. All aspects of the patient interview, examination, medical decision making process, and medical care plan development were reviewed and approved by the faculty preceptor. The faculty preceptor is aware and concurs with the plan as stated in the body of this note and will attest to such by his/her cosignature. ATTENDING NOTE I, Moose Fuller, have both independently examined this patient as well as reviewed the documentation. I have discussed in detail with the resident the findings and plan of treatment as documented in the residents documentation. I will continue to follow the patient and offer further guidance to the patients care as necessary during this hospital stay. PAULINA RUBIO DO Oct 05, 2018 12:35 MOOSE FULLER MD Oct 05, 2018 13:31
[2018-10-05 14:00] VITALS: BP 131/60
[2018-10-05 21:00] VITALS: BP 142/52
[2018-10-05 22:00] VITALS: BP 139/63
[2018-10-05] MEDS: SERTRALINE 100 MG TAB PO SCH (22:22)
[2018-10-05] MEDS: SIMVASTATIN 40 MG TAB PO SCH (22:22)
[2018-10-06] MEDS: IPRATROPIUM 0.5MG/ALBUTEROL 2.5MG INH SOL UD 3ML (DUONEB)(J7620) NEB SCH ×3 (01:38→13:49)
[2018-10-06] MEDS: SLF 3 ML SYR IV SCH ×2 (05:23→13:45)
[2018-10-06 06:00] VITALS: BP 135/67
[2018-10-06 06:19] LABS: HEMATOCRIT 42.1 % (36.0-47.0); HEMOGLOBIN 13.1 g/dl (12.0-15.5); MEAN CORPUSCULAR HEMOGLOBIN 27.1 pg (27.0-33.0); MEAN CORPUSCULAR HGB CONC 31.1 g/dl (32.0-36.5); MEAN CORPUSCULAR VOLUME 87.2 fl (80.0-96.0); PLATELET COUNT, AUTOMATED 135 10^3/uL (150-450); RED BLOOD COUNT 4.83 10^6/uL (4.00-5.40); WHITE BLOOD COUNT 9.5 10^3/uL (4.0-10.0)
[2018-10-06 06:31] LABS: CALCIUM LEVEL 8.4 MG/DL (8.8-10.2); CREATININE FOR GFR 1.04 MG/DL (0.55-1.30); GLOMERULAR FILTRATION RATE 53.5 (>32)
[2018-10-06 08:07] VITALS: BP 112/54
[2018-10-06] MEDS: guaiFENesin ER 600 MG TAB PO SCH (08:08)
[2018-10-06] MEDS: predniSONE 20 MG TAB PO SCH (08:08)
[2018-10-06] MEDS: OSELTAMIVIR PHOSPHATE 30MG CAPSULE PO SCH (08:08)
[2018-10-06] MEDS: VITAMIN D 1,000 INTERNATIONAL UNITS TABLET PO SCH (08:08)
[2018-10-06] MEDS: ASPIRIN 81 MG ENTERIC TAB PO SCH (08:09)
[2018-10-06] MEDS: CEFDINIR 300 MG CAP (OMNICEF) PO SCH (08:09)
[2018-10-06] MEDS: ENOXAPARIN 40 MG/0.4 ML SYRINGE (J1650) SC SCH (08:09)
[2018-10-06] MEDS: CARVedilol 12.5 MG TAB PO SCH (08:10)
[2018-10-06] MEDS: HumaLOG INSULIN (NovoLOG) PER UNIT SC SCH ×2 (08:10→12:09)
[2018-10-06] MEDS: hydroCHLOROthiazide 25 MG TAB PO SCH (08:10)
[2018-10-06] MEDS ORDERED: AZITHROMYCIN 250 MG TAB PO SCH (09:00)
--- NOTE | 2018-10-06 11:13 | IPNPDOC ---
Date Seen The patient was seen on 10/06/18. Progress Note SUBJECTIVE: Patient is a 88-year-old female with cough and shortness of breath secondary to influenza. She was seen and examined this morning. Does not appear to use accessory muscles or short of breath sitting up on the bed answering questions. She is tolerating the antibiotics well. No overnight events reported. Denies shortness of breath trouble breathing nausea vomiting diarrhea. States that her abdominal discomfort is better ever since her cough has improved. She did have a coughing spell overnight and was able to bring out a little bit of sputum. OBJECTIVE PHYSICAL EXAMINATION: VITAL SIGNS: Please see below. GENERAL: Frail elderly female sitting on bed she does not appear to be any any acute distress she is awake alert oriented 3 does not Appears Short of Breath with Continued Conversation (IMPROVED) HEENT: Atraumatic normocephalic pupils are equal round and reactive moist mucous membranes no JVD CARDIOVASCULAR: S1-S2 regular she is not tachycardic she has a pacer in place. RESPIRATORY: Improved aeration bilaterally (nebilzer ABDOMINAL:Bowel sounds present abdomen soft nontender EXTREMITIES: No lower extremity edema LABORATORY DATA, IMAGING STUDIES, MICROBIOLOGY: Please see below. Echocardiogram: 10/01/2018 Dr. Mike 1. Study is of acceptable technical quality. 2. Left ventricular hypertrophy with hyperdynamic LV systolic function and estimated LVEF 70-75%. No LVOT obstruction. 3. Aortic sclerosis but no stenosis or insufficiency. 4. Duvn-rz-fbpmtxoh mitral and tricuspid insufficiency. 5. Likely normal central venous pressure and at least mild pulmonary hypert ension. 6. Pacemaker wire artifact apparent in right-sided heart chambers.. 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 -Follow up with Pulmonary up discharged History of dsa-uruiiyy-pasehdwvj diabetes. -Held home glipizide -c/w ISS History of high cholesterol. c/w home simvastatin 40 mg at night. Hypertension. - c/w carvedilol 18.75 mg twice a day by mouth and her hydrochlorothiazide 12.5 mg daily. -Her carvedilol has not been administrated multiple times because she had a low resting heart rate, does have pacer in place. -continue hydrochlorothiazide 25 mg daily History of anxiety. -c/w sertraline 100 mg at bedtime (q.h.s.), as well as her Ativan 0.25 mg as needed for anxiety. History of pacemaker. History of lobectomy secondary to histoplasmosis, necrotic nodules Vitamin E deficiency -c/w supplementation PT -Pending clearance -Recommend home with services DVT prophylaxis -Lovenox 40 mg SC VS, I&O, 24H, Fishbone Vital Signs/I&O Vital Signs Date Time Temp Pulse Resp B/P (MAP) Pulse Ox O2 Delivery O2 Flow Rate FiO2 10/06/18 08:07 62 112/54 (73) 10/06/18 06:00 97.3 15 95 10/04/18 10:15 Room Air 10/02/18 08:01 1.0 I&O- Last 24 Hours up to 6 AM 10/06/18 05:59 Intake Total 510 ml Output Total 1150 ml Balance -640 ml Laboratory Data 24H LABS Laboratory Tests 2 10/05/18 11:35: Bedside Glucose (Misc Panel) 162H 10/05/18 16:47: Bedside Glucose (Misc Panel) 266H 10/05/18 21:03: Bedside Glucose (Misc Panel) 249H 10/06/18 05:29: Nucleated Red Blood Cells % (auto) 0.0, Anion Gap 7L, Glomerular Filtration Rate 53.5, Blood Urea Nitrogen 41H, Creatinine 1.04, Sodium Level 141, Potassium Level 4.0, Chloride Level 103, Carbon Dioxide Level 31, Calcium Level 8.4L CBC/BMP Laboratory Tests 10/06/18 05:29 Red Blood Count 4.83, Mean Corpuscular Volume 87.2, Mean Corpuscular Hemoglobin 27.1, Mean Corpuscular Hemoglobin Concent 31.1 L, Red Cell Distribution Width 14.4, Calcium Level 8.4 L Microbiology Microbiology 10/01/18 Blood Culture - Preliminary, Resulted No Growth after 72 hours. All specime... 10/01/18 Blood Culture - Preliminary, Resulted No Growth after 72 hours. All specime... 10/01/18 Blood Culture - Preliminary, Resulted No Growth after 72 hours. All specime... 10/01/18 Blood Culture - Preliminary, Resulted No Growth after 72 hours. All specime... 10/05/18 Gram Stain - Final, Complete 10/05/18 Sputum Culture - Final, Complete GME ATTESTATION GME ATTESTATION My faculty preceptor for this patient encounter was physically present during the encounter and was fully available. All aspects of the patient interview, examination, medical decision making process, and medical care plan development were reviewed and approved by the faculty preceptor. The faculty preceptor is aware and concurs with the plan as stated in the body of this note and will attest to such by his/her cosignature. ATTENDING NOTE I, Moose Fuller, have both independently examined this patient as well as reviewed the documentation. I have discussed in detail with the resident the findings and plan of treatment as documented in the residents documentation. I will continue to follow the patient and offer further guidance to the patients care as necessary during this hospital stay. PAULINA RUBIO DO Oct 06, 2018 11:13 MOOSE FULLER MD Oct 10, 2018 15:57
[2018-10-06] MEDS ORDERED: FLEET ENEMA PR ONE (11:30)
[2018-10-06] MEDS ORDERED: AZIT-12 PO (12:21)
[2018-10-06] MEDS ORDERED: HYDR25TAB PO (12:21)
[2018-10-06] MEDS ORDERED: PRED10TA2 PO (12:21)
[2018-10-06] MEDS ORDERED: CEFD300CAP PO (12:21)
--- NOTE | 2018-10-06 20:22 | DS.PDOC ---
Discharge Summary General Date of Admission Oct 01, 2018 at 14:49 Date of Discharge October 06, 2018 Primary Care Physician: Yasmeen Alexis Discharge Summary PROCEDURES PERFORMED DURING STAY: Echocardiogram: 10/01/2018 Dr. Mike 1. Study is of acceptable technical quality. 2. Left ventricular hypertrophy with hyperdynamic LV systolic function and estimated LVEF 70-75%. No LVOT obstruction. 3. Aortic sclerosis but no stenosis or insufficiency. 4. Dyoc-zn-ylcgenyw mitral and tricuspid insufficiency. 5. Likely normal central venous pressure and at least mild pulmonary hypert ension. 6. Pacemaker wire artifact apparent in right-sided heart chambers.. ADMITTING DIAGNOSES: 1. Shortness of breath, weakness and cough secondary to Influenza A 2. History of tla-azjccha-ivdhkrnbz diabetes. 3. History of high cholesterol. 4. Hypertension 5. History of anxiety 6. History of pacemaker. 7. History of lobectomy secondary to histoplasmosis, necrotic nodules. DISCHARGE DIAGNOSES: 1. Shortness of breath, weakness and cough - possibly 2/2 Influenza A; possibly with a component 2/2 cryptogenic pneumonia 2. History of asl-tuywuxl-utuhtueed diabetes. 3. History of high cholesterol. 4. Hypertension. 5. History of anxiety. 6. History of pacemaker. 7. History of lobectomy secondary to histoplasmosis, necrotic nodules 8. Vitamin E deficiency COMPLICATIONS/CHIEF COMPLAINT: Influenza A. HISTORY OF PRESENT ILLNESS: Ms. Figueroa is an 88-year-old female with a per tinent past medical history of histoplasmosis in 2000, status post left upper lobectomy in February 2001, positive lung tissue for MAC in 2000, who presented to the emergency department (ED) because of physical debridement, weakness and cough. These symptoms have been going on since September 19, 2018. She was evaluated by her [facility] wheel, Dr. Devi and she was started on a prednisone taper for 2 1/2 weeks. She states that when the symptoms got improved, but in the last couple of days, she noticed that she was significantly more weaker, had shortness of breath and her cough has returned. She had a temperature of 100.4 this morning, but it lowered itself without any medical intervention to 98. She denies any nausea, vomiting, diarrhea or constipation. She denies having any fevers, chills, night sweats, weight loss. She does have recent sick contact, earlier in August she had two deaths in the family and her daughter went to two funerals and wakes. At these events, there were multiple family members, who were sick and some were sick with the flu. She states that her daughter had flu as well recently. She denies having any antibiotic or taking any Tamiflu. She denies having a productive cough, but her cough sounds wet in nature. In the emergency room (ER), her vitals showed a temperature of 100.0, a pulse oximetry of 91% on room air and she was placed on nasal canula and she is saturating at 96% with 2 liters. X-ray in the emergency room (ER) did show chronic changes with superimposed bibasilar infiltrates, left greater than right. Her laboratory shows a leukocytosis of 15.3. Serology was positive for influenza A. The hospitalist team was then called for hospital admission. HOSPITAL COURSE: Patient was admitted to the hospital service she was started on Tamiflu 30 mg by my twice a day for 5 days. She had a leukocytosis that was not improving a CT of the chest was done during her stay which showed bronchiectasis and bronchial wall thickening, consistent with cryptogenic pneumonia she does have a history of histoplasmosis and lung tissue positive for Mycobacterium avium complex in 2000. Induction sputum was ordered but the patient was unable to produce sputum. She was started on cefdinir for gram-positive coverage and azithromycin for atypical coverage for community-acquired pneumonia. The discharge her leukocytosis improves clinically stable and was advised her to continue antibiotics and antivirals as prescribed. She is to follow-up with primary provider and [facility] upon discharge within 7 days. She also worked with PT during her stay and recommended home with services upon discharge. She is agreeable to all plans stated to her. DISCHARGE MEDICATIONS: Please see below. ALLERGIES: Please see below. PHYSICAL EXAMINATION ON DISCHARGE: VITAL SIGNS: Please see below. GENERAL: Frail elderly female sitting on bed she does not appear to be any any acute distress she is awake alert oriented 3 Appears Short of Breath with Continued Conversation HEENT: Atraumatic normocephalic pupils are equal round and reactive moist mucous membranes no JVD CARDIOVASCULAR: S1-S2 regular she is not tachycardic she has a pacer in place. RESPIRATORY: Improved aeration bilaterally (nebilzer ABDOMINAL: Bowel sounds present abdomen soft nontender EXTREMITIES: No lower extremity edema LABORATORY DATA: Please see below. IMAGIN10/01/2018 chest x-ray Impression: Chronic changes with superimposed bibasilar infiltrates (left greater than right). 10/02/2018 ultrasound vascular lower extremity (Right) Impression: No evidence for deep venous thrombosis. 10/14/2018 chest x-ray Impression: Bibasilar densities as described. CT might be considered for further evaluation. CT chest Impression: Multiple irregular nodules as described. Bronchiolar wall thickening, possibly bronchiectasis. 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 Cardiomegaly and pacemaker are unchanged. PROGNOSIS: Fair ACTIVITY: As tolerated. DISPOSITION: 01 Home with home health DISCHARGE INSTRUCTIONS: 1. Follow-up Dr. Alexis and Dr. Devi within 7 days. 2. Please call to confirm/ schedule appointments 3. Please comply with treatment plan and medication returned to the ER if you experience any problems DISCHARGE CONDITION: Stable. TIME SPENT ON DISCHARGE: Greater than 35 minutes. Vital Signs/I&Os Vital Signs Date Time Temp Pulse Resp B/P (MAP) Pulse Ox O2 Delivery O2 Flow Rate FiO2 10/06/18 08:07 62 112/54 (73) 10/06/18 06:00 97.3 15 95 10/04/18 10:15 Room Air 10/02/18 08:01 1.0 I&O- Last 24 Hours up to 6 AM 10/06/18 06:00 Intake Total 760 ml Output Total 1150 ml Balance -390 ml Laboratory Data Labs 24H Laboratory Tests 2 10/05/18 21:03: Bedside Glucose (Misc Panel) 249H 10/06/18 05:29: Nucleated Red Blood Cells % (auto) 0.0, Anion Gap 7L, Glomerular Filtration Rate 53.5, Blood Urea Nitrogen 41H, Creatinine 1.04, Sodium Level 141, Potassium Level 4.0, Chloride Level 103, Carbon Dioxide Level 31, Calcium Level 8.4L 10/06/18 11:32: Bedside Glucose (Misc Panel) 197H CBC/BMP Laboratory Tests 10/06/18 05:29 Red Blood Count 4.83, Mean Corpuscular Volume 87.2, Mean Corpuscular Hemoglobin 27.1, Mean Corpuscular Hemoglobin Concent 31.1 L, Red Cell Distribution Width 14.4, Calcium Level 8.4 L FSBS Laboratory Tests Test 10/05/18 21:03 10/06/18 11:32 Range/Units Bedside Glucose (Misc Panel) 249 197 83-110 MG/DL Microbiology Microbiology 10/01/18 Blood Culture - Final, Complete NO GROWTH AFTER 5 DAYS 10/01/18 Blood Culture - Final, Complete NO GROWTH AFTER 5 DAYS 10/01/18 Blood Culture - Final, Complete NO GROWTH AFTER 5 DAYS 10/01/18 Blood Culture - Final, Complete NO GROWTH AFTER 5 DAYS 10/05/18 Gram Stain - Final, Complete 10/05/18 Sputum Culture - Final, Complete Discharge Medications Scheduled Aspirin (Aspirin EC) 81 Mg Tab, 81 MG PO DAILY, (Reported) Azithromycin (Azithromycin) 250 Mg Tablet, 250 MG PO DAILY Carvedilol (Carvedilol) 12.5 Mg Tab, 18.75 MG PO BID, (Reported) Cefdinir (Cefdinir) 300 Mg Capsule, 300 MG PO BID Cholecalciferol (Vitamin D3) (Vitamin D3) 2,000 Unit Cap, 2,000 UNIT PO DAILY, (Reported) Glipizide (Glipizide Xl) 5 Mg Tab, 5 MG PO DAILY, (Reported) Hydrochlorothiazide (Hydrochlorothiazide) 25 Mg Tablet, 1 TAB PO DAILY Metformin HCl (Metformin HCl ER) 500 Mg Tab, 1,000 MG PO BID, (Reported) Prednisone (Prednisone) 10 Mg Tablet, 10 MG PO TAPER Take 4 tabs daily x 3 days, then 3 tabs daily x 3 days, then 2 tabs daily x 3 days, then 1 tab daily x 3 days and stop Sertraline HCl (Sertraline HCl) 100 Mg Tab, 100 MG PO QHS, (Reported) Simvastatin (Simvastatin) 40 Mg Tab, 40 MG PO QHS, (Reported) Umeclidinium Brm/Vilanterol Tr (Anoro Ellipta 62.5-25 Mcg INH) 1 Aer Aer, 1 AER INH DAILY, (Reported) Scheduled PRN Acetaminophen (Tylenol) 325 Mg Tab, 650 MG PO Q4H PRN for PAIN, (Reported) Lorazepam (Lorazepam) 0.5 Mg Tab, 0.25 MG PO TID PRN for ANXIETY, (Reported) Allergies Coded Allergies: No Known Allergies (Verified , 06/09/05) GME ATTESTATION GME ATTESTATION My faculty preceptor for this patient encounter was physically present during the encounter and was fully available. All aspects of the patient interview, examination, medical decision making process, and medical care plan development were reviewed and approved by the faculty preceptor. The faculty preceptor is aware and concurs with the plan as stated in the body of this note and will attest to such by his/her cosignature. ATTENDING NOTE I, Moose Covington, have both independently examined this patient as well as reviewed the documentation. I have discussed in detail with the resident the findings and plan of treatment as documented in the residents documentation. I will continue to follow the patient and offer further guidance to the patients care as necessary during this hospital stay. PAULINA RUBIO DO Oct 06, 2018 20:22 MOOSE COVINGTON MD Oct 10, 2018 15:58
== END 2018-10-06 15:04 | disposition home health service (06) | DRG 194 ==
LOC: M ED 10:21 → EDBD 10:21 → M ED INP 14:49 → M PCU 17:08 → M MSPAV 10-04 01:54
PROVIDERS: ADMIT Internal Medicine; ATTEND Internal Medicine
DX: J10.08 Influenza due to other identified influenza virus with other specified pneumonia (principal); J84.116 Cryptogenic organizing pneumonia; I10 Essential (primary) hypertension; E78.00 Pure hypercholesterolemia, unspecified; E11.9 Type 2 diabetes mellitus without complications; I25.10 Atherosclerotic heart disease of native coronary artery without angina pectoris; E56.0 Deficiency of vitamin E; K59.00 Constipation, unspecified; F41.9 Anxiety disorder, unspecified; F39 Unspecified mood [affective] disorder; Z85.048 Personal history of other malignant neoplasm of rectum, rectosigmoid junction, and anus; Z90.49 Acquired absence of other specified parts of digestive tract; Z95.0 Presence of cardiac pacemaker; Z79.82 Long term (current) use of aspirin; Z79.52 Long term (current) use of systemic steroids; Z79.899 Other long term (current) drug therapy; Z87.09 Personal history of other diseases of the respiratory system; Z90.2 Acquired absence of lung [part of]; Z79.84 Long term (current) use of oral hypoglycemic drugs

== ENCOUNTER 2018-10-31 20:41 | Inpatient (IN) | payer MEDICARE ==
[~2018-10-31] VITALS: Ht 165.1 cm; Wt 68.0 kg
[~2018-10-31 20:41] MED LIST changes: +ANOR1AER INH; +ASPI81TA26 PO; +AZIT-12 PO; +CEFD300CAP PO; +GLIP-162 PO; +HYDR12.55 PO; +HYDR25TAB PO; +LORA0.5T11 PO; +METF500T4 PO; +PRED10TA2; +PRED10TA2 PO; +SERT-138 PO; +SIMV40TA2 PO; +VITA200016 PO
[2018-10-31 23:16] LABS: BASO % 0.3 % (0.0-1.0); EOS % 0.3 % (0.0-3.0); HEMATOCRIT 37.8 % (36.0-47.0); HEMOGLOBIN 11.9 g/dl (12.0-15.5); LYMPH # 0.4 10^3/uL (1.5-4.5); LYMPH % 4.5 % (24.0-44.0); MEAN CORPUSCULAR HEMOGLOBIN 27.8 pg (27.0-33.0); MEAN CORPUSCULAR HGB CONC 31.5 g/dl (32.0-36.5); MEAN CORPUSCULAR VOLUME 88.3 fl (80.0-96.0); MONO # 0.6 10^3/uL (0.0-0.8); MONO % 6.5 % (0.0-5.0); NEUTROPHILS % 85.4 % (36.0-66.0); PLATELET COUNT, AUTOMATED 210 10^3/uL (150-450); RED BLOOD COUNT 4.28 10^6/uL (4.00-5.40); WHITE BLOOD COUNT 9.4 10^3/uL (4.0-10.0)
[2018-10-31 23:24] LABS: ABG HCO3 27.8 MEQ/L (22.0-26.0); ABG O2 SATURATION 91.8 % (95.0-99.0); ABG PARTIAL PRESSURE CO2 43.3 mmHg (35.0-45.0); ABG PARTIAL PRESSURE O2 65.4 mmHg (75.0-100.0); ABG TOTAL CO2 29.1 MEQ/L (23.0-31.0); ABG pH (ARTERIAL) 7.425 UNITS (7.350-7.450)
[2018-10-31 23:42] LABS: ALBUMIN 2.4 GM/DL (3.2-5.2); BILIRUBIN,DIRECT 0.1 MG/DL (0.0-0.2); BILIRUBIN,TOTAL 0.3 MG/DL (0.2-1.0); CALCIUM LEVEL 8.6 MG/DL (8.8-10.2); CREATININE FOR GFR 1.25 MG/DL (0.55-1.30); FREE THYROXINE INDEX 2.1 % (1.3-4.8); GLOMERULAR FILTRATION RATE 43.3 (>32); POTASSIUM SERUM 3.9 MEQ/L (3.5-5.1); THYROID STIMULATING HORMONE 2.89 uIU/ML (0.358-3.740); THYROXINE (T4) 5.3 UG/DL (4.5-12.0); TOTAL PROTEIN 6.5 GM/DL (6.4-8.2)
[2018-11-01] MEDS ORDERED: ISOVUE-370 76% 100ML VIAL (Q9967) As Ordered ONE (00:23)
[2018-11-01] MEDS ORDERED: NS 500 ML IV ONE (00:30)
[2018-11-01 00:44] LABS: APPEARANCE, URINE CLEAR (CLEAR); BACTERIA, URINE AUTO NEGATIVE (NEGATIVE); BILIRUBIN, URINE AUTO NEGATIVE (NEGATIVE); BLOOD, URINE BLOOD NEGATIVE (NEGATIVE); COLOR, URINE YELLOW (YELLOW); GLUCOSE, URINE (UA) AUTO NEGATIVE (NEGATIVE); KETONE, URINE AUTO NEGATIVE (NEGATIVE); LEUKOCYTE ESTERASE, URINE AUTO 1+ (NEGATIVE); MUCUS, URINE SMALL (NEGATIVE); NITRITE, URINE AUTO NEGATIVE (NEGATIVE); PROTEIN, URINE AUTO NEGATIVE (NEGATIVE); RBC, URINE AUTO 3 /HPF (0-3); SQUAMOUS EPITHELIAL CELL UR AU 1 /HPF (0-6); TRANSITIONAL EPITHELIAL AUTO <1 /HPF; UROBILINOGEN, URINE AUTO 0.2 mg/dL (0.0-2.0); WBC, URINE AUTO 23 /HPF (0-3)
[2018-11-01] MEDS ORDERED: PIPERACILLIN/TAZOBACTAM SOD 3.375 GM in D5W MINI-BAG PLUS 50 ML IV ONE (00:45)
[2018-11-01] MEDS ORDERED: GLIP1TAB11 PO (00:58)
[2018-11-01] MEDS ORDERED: ALBU83IN INH (01:42)
[2018-11-01] MEDS ORDERED: PROAAER10 INH (01:42)
[2018-11-01] MEDS ORDERED: VITA-144 PO (01:42)
[2018-11-01] MEDS ORDERED: MAGN64TASA PO (01:42)
--- NOTE | 2018-11-01 01:49 | REPVR ---
EXAM: CT Angiography Chest With Contrast EXAM DATE/TIME: 11/01/2018 12:16 AM CLINICAL HISTORY: 88 years old, female; Signs and symptoms; Shortness of breath; Additional info: [employer] TECHNIQUE: Imaging protocol: Axial computed tomographic angiography images of the chest with intravenous contrast using CT angiography protocol. Coronal and sagittal reformatted images were created and reviewed. 3D rendering: MIP reconstructed images were created and reviewed. Radiation optimization: All CT scans at this facility use at least one of these dose optimization techniques: automated exposure control; mA and/or kV adjustment per patient size (includes targeted exams where dose is matched to clinical indication); or iterative reconstruction. Contrast material: ISO; Contrast volume: 75 ml; Contrast route: AC; COMPARISON: CT Chest without contrast 10/04/2018 5:06 PM FINDINGS: Tubes, catheters and devices: Stable pacemaker. Pulmonary arteries: Filling defect in the right lower lobe first and second order pulmonary artery branches representing pulmonary embolism. Aorta: Normal. No aortic aneurysm. No aortic dissection. Inferior vena cava: Reflux of contrast into hepatic IVC and its branches likely representing right-sided heart failure. Lungs: Innumerous bilateral nodular densities in the lungs with mild bronchiectasis, and areas of consolidation in the lingula and left lower lobe. Pleural space: Normal. No pneumothorax. No pleural effusion. Heart: Atherosclerosis. Cardiomegaly. Coronary calcifications. Mitral valve calcifications. Gallbladder and bile ducts: Status post cholecystectomy. Lymph nodes: Multiple subcentimeter mediastinal lymph nodes. Bones/joints: Diffuse demineralization of the bones with degenerative changes. Soft tissues: Unremarkable. IMPRESSION: Filling defect in the right lower lobe first and second order pulmonary artery branches representing pulmonary embolism. Innumerous bilateral nodular densities in the lungs with mild bronchiectasis, and areas of consolidation in the lingula and left lower lobe. Findings may represent pneumonia versus atelectasis, clinical correlation is recommended. Electronically signed by: Leelee Tejada On 11/01/2018 01:48:54 AM
[2018-11-01] MEDS ORDERED: APIXABAN 5 MG TAB (ELIQUIS) PO ONE (02:00)
[2018-11-01 02:09] LABS: INR 1.17; PROTHROMBIN TIME 15.1 SECONDS (12.1-14.4)
[2018-11-01 02:10] LABS: PARTIAL THROMBOPLASTIN TIME 26.6 SECONDS (25.4-37.6)
[2018-11-01] MEDS ORDERED: ALBUTEROL 90 MCG/ACT 8GM HFA INHALER INH PRN (03:45)
[2018-11-01] MEDS ORDERED: LORazepam 0.5 MG TAB PO PRN (03:45)
[2018-11-01] MEDS ORDERED: ACETAMINOPHEN TAB 650MG DOSE (2X325MG) PO PRN (03:45)
[2018-11-01] MEDS ORDERED: PILL CUTTER 1 EACH XX PRN (04:00)
--- NOTE | 2018-11-01 04:08 | HPEPDOC ---
General Date of Admission October 31, 2018 at 20:42 Chief Complaint The patient is a 88-year-old female admitted with a reason for visit of Pulmonar y Embolism. Source: Patient, Family Severity: Moderate Associated Symptoms: Weakness History of Present Illness 89 up female with PMH of non-insulin dependent DM, HTN, hypercholesterolemia, rectal CA, histoplasmosis, and mycobacterium avium complex in 2000 who was recently d/c from [facility] on 10/06/18 presents to the ER due to generalized weakness. It was noted that patient has dyspnea however upon questioning pt denies dyspnea. Reported non-productive cough and extremity weakness; pt states the extremity weakness has been gradually worse since d/c home and she has not been walk since she was d/c home. It was noted that she has chest/chest wall pain in right sided anterior lower chest wall border/right sided epigastric region that is worse when taking a deep breath, but it is noted that pt has been coughing. Pt was admitted to [facility] prior 10/02/2018 due to SOB, weakness, and cough and was found to have influenza A. Denies any fever, chills, nausea, vomiting, numbness, tingling, loss of sensation, constipation, diarrhea, melena, hematochezia,any urinary symptoms. Home Medications Scheduled Aspirin (Aspirin EC) 81 Mg Tab, 81 MG PO DAILY, (Reported) Carvedilol (Carvedilol) 12.5 Mg Tab, 18.75 MG PO BID, (Reported) Cholecalciferol (Vitamin D3) (Vitamin D3) 1,000 Unit Tablet, 2,000 UNIT PO CB LY, (Reported) Glipizide (Glipizide Xl) 10 Mg Tab.er.24, 10 MG PO DAILY, (Reported) Magnesium Chloride (Mag64) 64 Mg Tablet.dr, 64 MG PO BID, (Reported) Sertraline HCl (Sertraline HCl) 100 Mg Tab, 50 MG PO BID, (Reported) Simvastatin (Simvastatin) 40 Mg Tab, 40 MG PO QPM, (Reported) TAKES AT DINNERTIME Umeclidinium Brm/Vilanterol Tr (Anoro Ellipta 62.5-25 Mcg INH) 1 Aer Aer, 1 AER INH DAILY, (Reported) Scheduled PRN Albuterol Sulf (Albuterol Sulfate) 2.5 Mg/3 Ml Vial.neb, 2.5 MG INH QID PRN for SHORTNESS OF BREATH, (Reported) Albuterol Sulfate (Proair Hfa) 8.5 Gm Hfa.aer.ad, 2 PUFF INH Q4H PRN for SHORTNESS OF BREATH, (Reported) Lorazepam (Lorazepam) 0.5 Mg Tab, 0.25 MG PO TID PRN for ANXIETY, (Reported) Allergies Coded Allergies: No Known Allergies (Verified , 10/31/18) Past Medical History Medical History Non-insulin dependent diabetes Hypertension Hypercholesterolemia Rectal cancer s/p anterior resection 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 No pets at home. A-FIB/CHADSVASC A-FIB History Current/History of A-Fib/PAF?: No Review of Systems Constitutional: Denies: Chills, Fever Pulmonary: Reports: Cough (non-productive cough); Denies: Dyspnea Cardiovascular: Denies: Chest Pain, Palpitations Gastrointestinal: Denies: Nausea, Vomiting, Abdominal Pain, Diarrhea, Constipation, Hematochezia Genitourinary: Denies: Dysuria, Frequency, Hematuria Musculoskeletal: Reports: Other Symptoms (extremity weakness) Neurological: Reports: Weakness (extremity weakness reported) Physical Examination General Exam: Positive: Alert, Cooperative, No Acute Distress Eye Exam: Positive: Conjunctiva & lids normal; Negative: Sclera icteric ENT Exam: Positive: Atraumatic, Mucous membr. moist/pink Neck Exam: Positive: Supple Chest Exam: Positive: Clear to auscultation, Normal air movement, Diminished (diminished lung sounds in upper lung lobes b/l when aus anteriorly); Negative: Rales, Rhonchi, Wheezing Heart Exam: Positive: Rate Normal, Normal S1, Normal S2, Other (right sided man[address] st wall tenderness in anterior lower border) Abdomen Exam: Positive: Normal bowel sounds, Soft; Negative: Tenderness Skin Exam: Positive: Nl turgor and temperature Neuro Exam: Positive: Normal Speech, Cranial Nerves 3-12 NL, Other (Bilateral upper extremities +4/5; and bilateral lower extremities 5/5) Psych Exam: Positive: Mental status NL, Memory Intact, Oriented x 3 Vital Signs Vital Signs Date Time Temp Pulse Resp B/P (MAP) Pulse Ox O2 Delivery O2 Flow Rate FiO2 11/01/18 03:50 60 20 130/60 (83) 95 Room Air 10/31/18 20:57 98.6 Laboratory Data Labs 24H Laboratory Tests 2 10/31/18 23:02: Immature Granulocyte % (Auto) 3.0, White Blood Count 9.4, Red Blood Count 4.28, Hemoglobin 11.9L, Hematocrit 37.8, Mean Corpuscular Volume 88.3, Mean Corpuscular Hemoglobin 27.8, Mean Corpuscular Hemoglobin Concent 31.5L, Red Cell Distribution Width 17.0H, Platelet Count 210, Neutrophils (%) (Auto) 85.4H, Lymphocytes (%) (Auto) 4.5L, Monocytes (%) (Auto) 6.5H, Eosinophils (%) (Auto) 0.3, Basophils (%) (Auto) 0.3, Neutrophils # (Auto) 8.0H, Lymphocytes # (Auto) 0.4L, Monocytes # (Auto) 0.6, Eosinophils # (Auto) 0.0, Basophils # (Auto) 0.0, Nucleated Red Blood Cells % (auto) 0.3H, Anion Gap 7L, Glomerular Filtration Rate 43.3, Lactic Acid Level 1.8, Calcium Level 8.6L, Aspartate Amino Transf (A ST/SGOT) 30, Alanine Aminotransferase (ALT/SGPT) 40, Alkaline Phosphatase 92, Total Bilirubin 0.3, Direct Bilirubin 0.1, Total Protein 6.5, Albumin 2.4L, Albumin/Globulin Ratio 0.59L, Thyroid Stimulating Hormone (TSH) 2.890, Free Thyroxine Index 2.1, Thyroxine (T4) 5.3, Triiodothyronine (T3) Uptake 39 10/31/18 23:15: Blood Gas Bicarbonate Standard 27.0H, Arterial Blood pH 7.425, Arterial Blood Partial Pressure CO2 43.3, Arterial Blood Partial Pressure O2 65.4L, Arterial Blood Total CO2 29.1, Arterial Blood HCO3 27.8H, Arterial Blood Base Excess 3.0H, Arterial Blood Oxygen Saturation 91.8L 10/31/18 23:59: Urine Appearance CLEAR, Urine Color YELLOW, Urine pH 5.0, Urine Specific [place] 1.020, Urine Protein NEGATIVE, Urine Glucose (UA) NEGATIVE, Urine Ketones NEGATIVE, Urine Urobilinogen 0.2, Urine Bilirubin NEGATIVE, Urine Leukocyte Esterase 1+H, Urine Blood NEGATIVE, Urine Nitrite NEGATIVE, Urine WBC (Auto) 23H, Urine RBC (Auto) 3, Urine Hyaline Casts (Auto) 17, Urine Bacteria (Auto) NEGATIVE, Urine Squamous Epithelial Cells 1, Urine Transitional Epithelial Cells <1, Urine Mucus (Auto) SMALL, Urine Sperm (Auto) 11/01/18 00:00: Prothrombin Time 15.1H, Prothromb Time International Ratio 1.17, Activated Partial Thromboplast Time 26.6 CBC/BMP Laboratory Tests 10/31/18 23:02 Red Blood Count 4.28, Mean Corpuscular Volume 88.3, Mean Corpuscular Hemoglobin 27.8, Mean Corpuscular Hemoglobin Concent 31.5 L, Red Cell Distribution Width 17.0 H, Neutrophils (%) (Auto) 85.4 H, Lymphocytes (%) (Auto) 4.5 L, Monocytes (%) (Auto) 6.5 H, Eosinophils (%) (Auto) 0.3, Basophils (%) (Auto) 0.3, Neutrophils # (Auto) 8.0 H, Lymphocytes # (Auto) 0.4 L, Monocytes # (Auto) 0.6, Eosinophils # (Auto) 0.0, Basophils # (Auto) 0.0 Microbiology Microbiology 10/31/18 Blood Culture, Received Pending 10/31/18 Urine Culture, Received Pending Problems (1) Pulmonary embolism Problem Text: Non-productive cough. Pt is sat well on RA with stable vital signs; it was noted that pt has dyspnea but pt denies at the time of the examination. Pt reported extremity weakness and has been unable to walk since d/c home last time. CTA showed PE in right lower lobe. Will have the pt on Eliquis 10mg BID PO. Continue to observe the pt. Continuous pulse ox with oxygen therapy. Vital signs as scheduled. Duplex US in bilateral LE and echo ordered. (2) Pneumonia Status: Acute Problem Text: CTA showed consolidation in the lingula and left lower lobe. Non- productive, denies fever, chills, nausea, vomiting, or dyspnea. Right sided chest/chest wall pain likely d/t muscle strain from excessive cough. Pt will be on Zosyn and Tobramycin IV. Cont vital signs as scheduled, CBC, BMP, and procalcitonin ordered. . (3) Weakness of extremity Problem Text: Reported extremity weakness and was unable to walk since being d/c home from prior hospital visit. bilateral UE 4/5 strength with bilateral LE 5/5 strength. No other focal neurological signs, pt A&OX3 with CN2-12 fxn grossly intact. PT/OT ordered. Urine Cx and blood Cx pending. (4) Type 2 diabetes mellitus (5) H/O non-insulin dependent diabetes mellitus Problem Text: FS glucose 172 upon admission shown on BMP. insulin sliding scale with FSBS AC/HS. Cont to monitor the pt. (6) Hypertension Status: Chronic Problem Text: Hx of HTN. Cont home med Coreg. BP roughly stable 130/60. Vital signs as scheulded and cont to monitor the pt. Plan / VTE VTE Prophylaxis Ordered?: Yes (pt on eliquis for PE) Plan Therapy: OT Diagnostics: Repeat Labs in AM Anticipated Discharge: Home GME ATTESTATION GME ATTESTATION My faculty preceptor for this patient encounter was physically present during the encounter and was fully available. All aspects of the patient interview, examination, medical decision making process, and medical care plan development were reviewed and approved by the faculty preceptor. The faculty preceptor is aware and concurs with the plan as stated in the body of this note and will attest to such by his/her cosignature. YOANDY WAGONER DO November 01, 2018 04:08
[2018-11-01] MEDS ORDERED: GLUCOSE 4 GM CHEW TABLET PO PRN (04:15)
[2018-11-01] MEDS ORDERED: GLUCAGON FOR INJ 1 MG VIAL (J1610) SC PRN (04:15)
[2018-11-01] MEDS ORDERED: DEXTROSE 50% 50 ML SYRINGE IV PRN (04:15)
[2018-11-01 05:48] LABS: HEMATOCRIT 37.3 % (36.0-47.0); HEMOGLOBIN 11.4 g/dl (12.0-15.5); MEAN CORPUSCULAR HEMOGLOBIN 27.2 pg (27.0-33.0); MEAN CORPUSCULAR HGB CONC 30.6 g/dl (32.0-36.5); PLATELET COUNT, AUTOMATED 180 10^3/uL (150-450); RED BLOOD COUNT 4.19 10^6/uL (4.00-5.40); WHITE BLOOD COUNT 9.6 10^3/uL (4.0-10.0)
[2018-11-01] MEDS ORDERED: TOBRAMYCIN SULF IV SCH (06:00)
[2018-11-01] MEDS ORDERED: D5W IV SCH (06:00)
[2018-11-01 06:04] LABS: CALCIUM LEVEL 8.5 MG/DL (8.8-10.2); CREATININE FOR GFR 1.11 MG/DL (0.55-1.30); GLOMERULAR FILTRATION RATE 49.6 (>32); POTASSIUM SERUM 4.1 MEQ/L (3.5-5.1); TROPONIN I 0.18 NG/ML (< 0.10)
[2018-11-01] MEDS: HumaLOG INSULIN (NovoLOG) PER UNIT SC SCH ×4 (07:30→21:00)
[2018-11-01] MEDS ORDERED: PIPERACILLIN/TAZOBACTAM SOD 3.375 GM in D5W MINI-BAG PLUS 50 ML IV SCH (08:00)
[2018-11-01] MEDS: VITAMIN D 1,000 INTERNATIONAL UNITS TABLET PO SCH (09:00)
[2018-11-01] MEDS: CARVedilol 12.5 MG TAB PO SCH ×2 (09:00→21:37)
[2018-11-01] MEDS: ASPIRIN 81 MG ENTERIC TAB PO SCH (09:00)
[2018-11-01] MEDS: SALMETEROL DISKUS 50MCG INHALER (SEREVENT) INH SCH (09:00)
[2018-11-01] MEDS: SERTRALINE 100 MG TAB PO SCH ×2 (09:00→21:00)
--- NOTE | 2018-11-01 09:15 | REP ---
Bilateral lower extremity Duplex Doppler venous ultrasound: Real time compression and duplex Doppler interrogation of the bilateral lower extremity deep venous system is performed. Bilaterally, the common femoral, superficial femoral and popliteal veins are fully compressible with transducer pressure and demonstrate normal spontaneous and phasic flow, without evidence of deep venous thrombosis. Impression: No evidence of deep venous thrombosis of the bilateral lower extremity femoral popliteal venous system. Electronically Signed by Angel Domínguez MD 11/01/2018 09:06 A
[2018-11-01] MEDS: glipiZIDE XL 5 MG TABCR PO SCH (09:19)
[2018-11-01] MEDS: APIXABAN 5 MG TAB (ELIQUIS) PO SCH ×2 (09:20→21:38)
[2018-11-01] MEDS: MAGNESIUM CHLORIDE 64 MG TABCR (SLO MAG) PO SCH ×2 (09:20→21:38)
[2018-11-01] MEDS: ALBUTEROL SULFATE 2.5 MG/0.5 ML INH NEB SOLN INH PRN (12:06)
[2018-11-01 13:45] VITALS: BP 166/74
[2018-11-01] MEDS: SIMVASTATIN 40 MG TAB PO SCH (21:37)
[2018-11-01 22:00] VITALS: BP 112/53
[2018-11-01 23:00] VITALS: O2SAT 94
[2018-11-02] MEDS: ALBUTEROL SULFATE 2.5 MG/0.5 ML INH NEB SOLN INH PRN (00:20)
[2018-11-02 06:00] VITALS: BP 151/70
[2018-11-02 06:14] LABS: HEMATOCRIT 38.6 % (36.0-47.0); HEMOGLOBIN 11.8 g/dl (12.0-15.5); MEAN CORPUSCULAR HEMOGLOBIN 27.4 pg (27.0-33.0); MEAN CORPUSCULAR HGB CONC 30.6 g/dl (32.0-36.5); MEAN CORPUSCULAR VOLUME 89.8 fl (80.0-96.0); PLATELET COUNT, AUTOMATED 234 10^3/uL (150-450); WHITE BLOOD COUNT 11.2 10^3/uL (4.0-10.0)
[2018-11-02 06:39] LABS: CALCIUM LEVEL 9.1 MG/DL (8.8-10.2); CREATININE FOR GFR 1.08 MG/DL (0.55-1.30); GLOMERULAR FILTRATION RATE 51.2 (>32); POTASSIUM SERUM 3.9 MEQ/L (3.5-5.1)
[2018-11-02] MEDS: HumaLOG INSULIN (NovoLOG) PER UNIT SC SCH ×4 (06:51→20:40)
[2018-11-02] MEDS: SALMETEROL DISKUS 50MCG INHALER (SEREVENT) INH SCH (07:54)
[2018-11-02] MEDS: MAGNESIUM CHLORIDE 64 MG TABCR (SLO MAG) PO SCH ×2 (08:51→20:50)
[2018-11-02] MEDS: VITAMIN D 1,000 INTERNATIONAL UNITS TABLET PO SCH (08:53)
[2018-11-02] MEDS: SERTRALINE 100 MG TAB PO SCH ×2 (08:53→20:50)
[2018-11-02] MEDS: APIXABAN 5 MG TAB (ELIQUIS) PO SCH ×2 (08:53→20:48)
[2018-11-02] MEDS: ASPIRIN 81 MG ENTERIC TAB PO SCH (08:54)
[2018-11-02] MEDS: CARVedilol 12.5 MG TAB PO SCH ×2 (08:54→20:48)
[2018-11-02] MEDS: glipiZIDE XL 5 MG TABCR PO SCH (08:54)
[2018-11-02] MEDS ORDERED: PREVNAR 13 VACCINE SYRINGE (CPT CODE:90670) IM ONE (09:00)
[2018-11-02 14:00] VITALS: BP 119/73
--- NOTE | 2018-11-02 14:32 | IPNPDOC ---
Subjective Date Seen The patient was seen on 11/02/18. Subjective Chief Complaint/HPI Patient is comfortable of no new complaints. Feels weak General: Reports: Fatigue; Denies: ROS Unobtainable, Chills, Night Sweats, Malaise, Normal Appetite, Other Symptoms Constitutional: Denies: Chills, Fever, Malaise, Night Sweats, Weakness, Fatigue, Weight Loss, Lethargy, Other Eyes: Denies: Pain, Vision change, Conjunctivae inflammation, Eyelid inflammation, Redness, Other ENT: Denies: Head Aches, Ear Pain, Dysphagia, Sinus Congestion, Post Nasal D rip, Sore Throat, Epistaxis, Other Symptoms Skin: Denies: Rash, Lesions, Jaundice, Bruising, Itching, Dry, Breakdown, Nail Changes, Other Pulmonary: Denies: Dyspnea, Cough, Pleuritic Chest Pain, Other Symptoms Cardiovascular: Denies: Chest Pain, Palpitations, Orthopnea, Paroxysmal Noc. Dyspnea, Edema, Lt Headedness, Other Symptoms Gastrointestinal: Denies: Nausea, Vomiting, Abdominal Pain, Diarrhea, Constipat ion, Melena, Hematochezia, Other Symptoms Genitourinary: Denies: Dysuria, Frequency, Incontinence, Hematuria, Retention, Other Symptoms Hematologic: Denies: Bruising, Bleeding Excessively, Petecchia, Purpura, Enlarged Lymph Nodes, Other Hematologic Endocrine: Denies: Polydipsia, Polyphagia, Polyuria, Heat Intolerance, Cold Intolerance, Other Endocrine Sx Neurological: Denies: Weakness, Numbness, Incoordination, Change in speech, Confusion, Seizures, Other Symptoms Psych: Denies: Mood Normal, Anxiety, Depression, Memory Issues, Thoughts of Self Harm, Anger, Thoughts of Harming Other, Other Psych Objective Physical Examination General Exam: Positive: Alert, Cooperative, No Acute Distress Eye Exam: Positive: Conjunctiva & lids normal; Negative: Sclera icteric ENT Exam: Positive: Atraumatic, Mucous membr. moist/pink Neck Exam: Positive: Supple Chest Exam: Positive: Clear to auscultation, Normal air movement, Diminished (diminished lung sounds in upper lung lobes b/l when aus anteriorly); Negative: Rales, Rhonchi, Wheezing Heart Exam: Positive: Rate Normal, Normal S1, Normal S2, Other (right sided chest wall tenderness in anterior lower border) Abdomen Exam: Positive: Normal bowel sounds, Soft; Negative: Tenderness Skin Exam: Positive: Nl turgor and temperature Neuro Exam: Positive: Normal Speech, Cranial Nerves 3-12 NL, Other (Bilateral upper extremities +4/5; and bilateral lower extremities 5/5) Psych Exam: Positive: Mental status NL, Memory Intact, Oriented x 3 A-FIB/CHADSVASC A-FIB History Current/History of A-Fib/PAF?: No Assessment /Plan Problems (1) Pulmonary embolism Status: Acute Problem Text: Non-productive cough. Pt is sat well on RA with stable vital signs; it was noted that pt has dyspnea but pt denies at the time of the examination. Pt reported extremity weakness and has been unable to walk since d/c home last time. CTA showed PE in right lower lobe. Will have the pt on Eliquis 10mg BID PO. Continue to observe the pt. Continuous pulse ox with oxygen therapy. Vital signs as scheduled. Duplex US in bilateral LE and echo ordered. As per patient's family and her . He is unable to take care of for discussed with the case management. Possibly patient will be transferred to subacute care facility was the bed is available PT, OT consult has been requested (2) Pneumonia Status: Chronic Problem Text: CTA showed consolidation in the lingula and left lower lobe. Non- productive, denies fever, chills, nausea, vomiting, or dyspnea. Right sided chest/chest wall pain likely d/t muscle strain from excessive cough. Pt will be on Zosyn and Tobramycin IV. Cont vital signs as scheduled, CBC, BMP, and procalcitonin ordered. . (3) Weakness of extremity Status: Acute Problem Text: Reported extremity weakness and was unable to walk since being d/c home from prior hospital visit. bilateral UE 4/5 strength with bilateral LE 5/5 strength. No other focal neurological signs, pt A&OX3 with CN2-12 fxn grossly intact. PT/OT ordered. Urine Cx and blood Cx pending. (4) Type 2 diabetes mellitus Status: Chronic (5) H/O non-insulin dependent diabetes mellitus Problem Text: FS glucose 172 upon admission shown on BMP. insulin sliding scale with FSBS AC/HS. Cont to monitor the pt. (6) Hypertension Status: Chronic Problem Text: Hx of HTN. Cont home med Coreg. BP roughly stable 130/60. Vital signs as scheulded and cont to monitor the pt. Plan/VTE VTE Prophylaxis Ordered?: Yes (pt on eliquis for PE) Plan Therapy: OT Diagnostics: Repeat Labs in AM Anticipated Discharge: Home VS, I&O, 24H, Fishbone Vital Signs/I&O Vital Signs Date Time Temp Pulse Resp B/P (MAP) Pulse Ox O2 Delivery O2 Flow Rate FiO2 11/02/18 08:54 60 151/70 11/02/18 06:00 97.6 22 91 11/01/18 13:43 Room Air I&O- Last 24 Hours up to 6 AM 11/02/18 06:00 Intake Total 300 ml Output Total 400 ml Balance -100 ml Laboratory Data 24H LABS Laboratory Tests 2 11/01/18 16:39: Bedside Glucose (Misc Panel) 78L 11/01/18 20:42: Bedside Glucose (Misc Panel) 102 11/02/18 05:35: Nucleated Red Blood Cells % (auto) 0.4H, Anion Gap 8, Glomerular Filtration Rate 51.2, Blood Urea Nitrogen 34H, Creatinine 1.08, Sodium Level 143, Potassium Level 3.9, Chloride Level 109H, Carbon Dioxide Level 26, Calcium Level 9.1 11/02/18 11:57: Bedside Glucose (Misc Panel) 157H CBC/BMP Laboratory Tests 11/02/18 05:35 Red Blood Count 4.30, Mean Corpuscular Volume 89.8, Mean Corpuscular Hemoglobin 27.4, Mean Corpuscular Hemoglobin Concent 30.6 L, Red Cell Distribution Width 17.9 H, Calcium Level 9.1 Microbiology Microbiology 10/31/18 Blood Culture - Preliminary, Resulted No growth after 24 hours . All specim... 10/31/18 Urine Culture, Received Pending FAWAD MCINTYRE MD November 02, 2018 14:32
--- NOTE | 2018-11-02 18:35 | ECHO ---
DATE OF PROCEDURE: 11/02/2018 AGE: 88 GENDER: Female HEIGHT: 65 inches WEIGHT: 149 pounds BODY SURFACE AREA: 1.75 m2 PATIENT LOCATION: Inpatient, [address] [place] [address], room 4207 REFERRING PHYSICIAN: Lesvia Sanabria MD INDICATION: Pulmonary embolism. 2-D MEASUREMENTS: RV: 4.0 cm LV: 2.8 cm Septum: 1.6 cm Posterior wall: 1.6 cm Aortic root: 3.0 cm LA: 3.8 cm LVEF: 60% DOPPLER MEASUREMENTS: AV: 2.1 m/s LVOT: 0.8 m/s LVOT diameter: 1.8 cm Mean AV systolic gradient: 8 mmHg Dimensionless index: 0.37 COMMENTS: MV-E: 95 Early mitral deceleration time: 194 ms E prime: 3.4, E/E prime ratio: 25.7 PCWP: 29.9 mmHg PV: 0.7 m/s Pulmonary artery acceleration time: 76 ms RVSP: 57 mmHg IVC: 2.0 cm COMMENTS Underlying atrial fibrillation with consistent ventricular paced rhythm. Paced QRS complexes having and left bundle branch block (LBBB) QRS configuration. M-mode and two-dimensional echocardiography was performed with pulsed, continuous wave, color flow and tissue Doppler studies. Moderately severe concentric left ventricle hypertrophy. Subtle septal wall motion abnormality related to right ventricular pacing, but other wall motion was hyperkinetic. Preserved global resting left ventricular systolic function. Mildly dilated left atrium with Doppler evidence of significantly elevated mean left atrial pressure. Mildly dilated right heart chambers with reduced right ventricular free wall motion and Doppler evidence of at least moderately severe pulmonary hypertension. Slightly dilated IVC with reduced respiratory collapse in keeping with an elevated central venous pressure. Mild calcific aortic stenosis with very mild insufficiency. Normal aortic root size. Moderately severe mitral annular calcification without inflow tract obstruction but moderate mitral insufficiency. Normal appearing tricuspid valve with at least moderate insufficiency. Pacing lead could be visualized traversing right heart structures, but no separate intracardiac mass. No pericardial effusion.
[2018-11-02] MEDS: SIMVASTATIN 40 MG TAB PO SCH (20:50)
[2018-11-02 22:00] VITALS: BP 144/65
[2018-11-03 05:25] LABS: HEMATOCRIT 38.6 % (36.0-47.0); HEMOGLOBIN 11.7 g/dl (12.0-15.5); MEAN CORPUSCULAR HEMOGLOBIN 27.5 pg (27.0-33.0); MEAN CORPUSCULAR HGB CONC 30.3 g/dl (32.0-36.5); MEAN CORPUSCULAR VOLUME 90.6 fl (80.0-96.0); PLATELET COUNT, AUTOMATED 235 10^3/uL (150-450); RED BLOOD COUNT 4.26 10^6/uL (4.00-5.40); WHITE BLOOD COUNT 11.6 10^3/uL (4.0-10.0)
[2018-11-03 06:00] VITALS: BP 141/63
[2018-11-03 06:06] LABS: CALCIUM LEVEL 8.4 MG/DL (8.8-10.2); CREATININE FOR GFR 1.14 MG/DL (0.55-1.30); GLOMERULAR FILTRATION RATE 48.1 (>32); POTASSIUM SERUM 4.7 MEQ/L (3.5-5.1); TOBRAMYCIN LEVEL TROUGH 0.8 MCG/ML (0.0-2.0)
[2018-11-03] MEDS: SALMETEROL DISKUS 50MCG INHALER (SEREVENT) INH SCH (08:06)
[2018-11-03] MEDS: MAGNESIUM CHLORIDE 64 MG TABCR (SLO MAG) PO SCH ×2 (09:12→21:14)
[2018-11-03] MEDS: HumaLOG INSULIN (NovoLOG) PER UNIT SC SCH ×4 (09:13→21:00)
[2018-11-03] MEDS: glipiZIDE XL 5 MG TABCR PO SCH (09:14)
[2018-11-03] MEDS: APIXABAN 5 MG TAB (ELIQUIS) PO SCH ×2 (09:14→21:14)
[2018-11-03] MEDS: SERTRALINE 100 MG TAB PO SCH ×2 (09:15→21:15)
[2018-11-03] MEDS: CARVedilol 12.5 MG TAB PO SCH ×2 (09:15→21:14)
[2018-11-03] MEDS: ASPIRIN 81 MG ENTERIC TAB PO SCH (09:15)
[2018-11-03] MEDS: VITAMIN D 1,000 INTERNATIONAL UNITS TABLET PO SCH (09:16)
--- NOTE | 2018-11-03 13:35 | IPNPDOC ---
Subjective Date Seen The patient was seen on 11/03/18. Subjective Chief Complaint/HPI Patient offers no new complaints. Feels a lot better now more awake and alert. She tends to get a sundowning, but right now recommended. She is alert, oriented 3 General: Denies: ROS Unobtainable, Chills, Night Sweats, Fatigue, Malaise, Normal Appetite, Other Symptoms Constitutional: Denies: Chills, Fever, Malaise, Night Sweats, Weakness, Fatigue, Weight Loss, Lethargy, Other Eyes: Denies: Pain, Vision change, Conjunctivae inflammation, Eyelid inflammation, Redness, Other ENT: Denies: Head Aches, Ear Pain, Dysphagia, Sinus Congestion, Post Nasal Drip, Sore Throat, Epistaxis, Other Symptoms Skin: Denies: Rash, Lesions, Jaundice, Bruising, Itching, Dry, Breakdown, Nail Changes, Other Pulmonary: Denies: Dyspnea, Cough, Pleuritic Chest Pain, Other Symptoms Cardiovascular: Denies: Chest Pain, Palpitations, Orthopnea, Paroxysmal Noc. Dyspnea, Edema, Lt Headedness, Other Symptoms Gastrointestinal: Denies: Nausea, Vomiting, Abdominal Pain, Diarrhea, Constipation, Melena, Hematochezia, Other Symptoms Genitourinary: Denies: Dysuria, Frequency, Incontinence, Hematuria, Retention, Other Symptoms Hematologic: Denies: Bruising, Bleeding Excessively, Petecchia, Purpura, Enlarged Lymph Nodes, Other Hematologic Endocrine: Denies: Polydipsia, Polyphagia, Polyuria, Heat Intolerance, Cold Intolerance, Other Endocrine Sx Musculoskeletal: Denies: Neck Pain, Back Pain, Shoulder Pain, Arm Pain, Hand Pain, Leg Pain, Foot Pain, Joint Pain, Muscle Pain, Spasms, Other Symptoms Neurological: Denies: Weakness, Numbness, Incoordination, Change in speech, Confusion, Seizures, Other Symptoms Psych: Denies: Mood Normal, Anxiety, Depression, Memory Issues, Thoughts of Self Harm, Anger, Thoughts of Harming Other, Other Psych Objective Physical Examination General Exam: Positive: Alert, Cooperative, No Acute Distress Eye Exam: Positive: Conjunctiva & lids normal; Negative: Sclera icteric ENT Exam: Positive: Atraumatic, Mucous membr. moist/pink Neck Exam: Positive: Supple Chest Exam: Positive: Clear to auscultation, Normal air movement, Diminished (diminished lung sounds in upper lung lobes b/l when aus anteriorly); Negative: Rales, Rhonchi, Wheezing Heart Exam: Positive: Rate Normal, Normal S1, Normal S2, Other (right sided chest wall tenderness in anterior lower border) Abdomen Exam: Positive: Normal bowel sounds, Soft; Negative: Tenderness Skin Exam: Positive: Nl turgor and temperature Neuro Exam: Positive: Normal Speech, Cranial Nerves 3-12 NL, Other (Bilateral upper extremities +4/5; and bilateral lower extremities 5/5) Psych Exam: Positive: Mental status NL, Memory Intact, Oriented x 3 A-FIB/CHADSVASC A-FIB History Current/History of A-Fib/PAF?: Yes Current Oral Anticoagulant The: Yes Assessment /Plan Problems (1) Pulmonary embolism Status: Acute Problem Text: Non-productive cough. Pt is sat well on RA with stable vital signs; it was noted that pt has dyspnea but pt denies at the time of the examination. Pt reported extremity weakness and has been unable to walk since d/c home last time. CTA showed PE in right lower lobe. Will have the pt on Eliquis 10mg BID PO. Continue to observe the pt. Continuous pulse ox with oxygen therapy. Vital signs as scheduled. Duplex US in bilateral LE and echo ordered. As per patient's family and her . He is unable to take care of for discussed with the case management. Possibly patient will be transferred to subacute care facility was the bed is available PT, OT in progress Discussed with patient and her daughters at the bedside (2) Pneumonia Status: Chronic Problem Text: CTA showed consolidation in the lingula and left lower lobe. has a history of histoplasmosis and these findings are old compared to old CAT scans Evidence of pneumonia and the antibiotics were DC'd by Dr. Gray Explained to patient and her family at bedside that there is no need for IV antibiotics at the present time (3) Weakness of extremity Status: Acute Problem Text: Reported extremity weakness and was unable to walk since being d/c home from prior hospital visit. bilateral UE 4/5 strength with bilateral LE 5/5 strength. No other focal neurological signs, pt A&OX3 with CN2-12 fxn grossly intact. PT/OT ordered. Urine Cx and blood Cx pending. (4) Type 2 diabetes mellitus Status: Chronic (5) H/O non-insulin dependent diabetes mellitus Problem Text: FS glucose 172 upon admission shown on BMP. insulin sliding scale with FSBS AC/HS. Cont to monitor the pt. (6) Hypertension Status: Chronic Problem Text: Hx of HTN. Cont home med Coreg. BP roughly stable 130/60. Vital signs as scheulded and cont to monitor the pt. Plan/VTE VTE Prophylaxis Ordered?: Yes (pt on eliquis for PE) Plan Therapy: OT Diagnostics: Repeat Labs in AM Anticipated Discharge: Home VS, I&O, 24H, Fishbone Vital Signs/I&O Vital Signs Date Time Temp Pulse Resp B/P (MAP) Pulse Ox O2 Delivery O2 Flow Rate FiO2 11/03/18 09:15 60 140/70 11/03/18 06:00 98.6 18 92 11/01/18 13:43 Room Air I&O- Last 24 Hours up to 6 AM 11/03/18 05:59 Intake Total 730 ml Output Total 450 ml Balance 280 ml Laboratory Data 24H LABS Laboratory Tests 2 11/02/18 16:50: Bedside Glucose (Misc Panel) 233H 11/02/18 20:32: Bedside Glucose (Misc Panel) 178H 11/03/18 05:14: Nucleated Red Blood Cells % (auto) 0.3H, Anion Gap 10, Glomerular Filtration Rate 48.1, Blood Urea Nitrogen 34H, Creatinine 1.14, Sodium Level 144, Potassium Level 4.7#, Chloride Level 107, Carbon Dioxide Level 27, Calcium Level 8.4L, Tobramycin Level Trough 0.8 11/03/18 05:50: Bedside Glucose (Misc Panel) 151H 11/03/18 07:08: Tobramycin Level Peak 0.8L 11/03/18 11:44: Bedside Glucose (Misc Panel) 179H CBC/BMP Laboratory Tests 11/03/18 05:14 Red Blood Count 4.26, Mean Corpuscular Volume 90.6, Mean Corpuscular Hemoglobin 27.5, Mean Corpuscular Hemoglobin Concent 30.3 L, Red Cell Distribution Width 18.3 H, Calcium Level 8.4 L Microbiology Microbiology 10/31/18 Blood Culture - Preliminary, Resulted No Growth after 48 hours. All Specime... 10/31/18 Urine Culture - Final, Complete FAWAD MCINTYRE MD November 03, 2018 13:35
[2018-11-03 14:00] VITALS: BP 117/59
[2018-11-03 20:00] VITALS: O2SAT 93
[2018-11-03] MEDS: SIMVASTATIN 40 MG TAB PO SCH (21:15)
[2018-11-03 22:00] VITALS: BP 138/62
[2018-11-04] VITALS: O2SAT 94
[2018-11-04 04:00] VITALS: O2SAT 93
[2018-11-04 06:00] VITALS: BP 153/68
[2018-11-04 06:00] LABS: HEMATOCRIT 37.6 % (36.0-47.0); HEMOGLOBIN 11.5 g/dl (12.0-15.5); MEAN CORPUSCULAR HEMOGLOBIN 27.4 pg (27.0-33.0); MEAN CORPUSCULAR HGB CONC 30.6 g/dl (32.0-36.5); MEAN CORPUSCULAR VOLUME 89.7 fl (80.0-96.0); PLATELET COUNT, AUTOMATED 240 10^3/uL (150-450); RED BLOOD COUNT 4.19 10^6/uL (4.00-5.40); WHITE BLOOD COUNT 11.9 10^3/uL (4.0-10.0)
[2018-11-04 06:23] LABS: CREATININE FOR GFR 1.09 MG/DL (0.55-1.30); GLOMERULAR FILTRATION RATE 50.7 (>32); POTASSIUM SERUM 4.3 MEQ/L (3.5-5.1)
[2018-11-04] MEDS: SALMETEROL DISKUS 50MCG INHALER (SEREVENT) INH SCH (07:40)
[2018-11-04] MEDS: MAGNESIUM CHLORIDE 64 MG TABCR (SLO MAG) PO SCH ×2 (08:08→21:21)
[2018-11-04] MEDS: ASPIRIN 81 MG ENTERIC TAB PO SCH (08:08)
[2018-11-04] MEDS: APIXABAN 5 MG TAB (ELIQUIS) PO SCH ×2 (08:08→21:21)
[2018-11-04] MEDS: CARVedilol 12.5 MG TAB PO SCH ×2 (08:09→21:22)
[2018-11-04] MEDS: glipiZIDE XL 5 MG TABCR PO SCH (08:10)
[2018-11-04] MEDS: VITAMIN D 1,000 INTERNATIONAL UNITS TABLET PO SCH (08:10)
[2018-11-04] MEDS: SERTRALINE 100 MG TAB PO SCH ×2 (08:10→21:23)
[2018-11-04] MEDS: HumaLOG INSULIN (NovoLOG) PER UNIT SC SCH ×4 (08:11→20:36)
[2018-11-04 09:00] VITALS: O2SAT 94
--- NOTE | 2018-11-04 12:04 | IPNPDOC ---
Subjective Date Seen The patient was seen on 11/04/18. Subjective Chief Complaint/HPI Patient complaining of shortness of breath on exertion but no other new complaints General: Denies: ROS Unobtainable, Chills, Night Sweats, Fatigue, Malaise, Normal Appetite, Other Symptoms Constitutional: Denies: Chills, Fever, Malaise, Night Sweats, Weakness, Fatigue, Weight Loss, Lethargy, Other Eyes: Denies: Pain, Vision change, Conjunctivae inflammation, Eyelid inflamma tion, Redness, Other ENT: Denies: Head Aches, Ear Pain, Dysphagia, Sinus Congestion, Post Nasal Drip, Sore Throat, Epistaxis, Other Symptoms Skin: Denies: Rash, Lesions, Jaundice, Bruising, Itching, Dry, Breakdown, Nail Changes, Other Pulmonary: Reports: Dyspnea; Denies: Cough, Pleuritic Chest Pain, Other Symptoms Cardiovascular: Denies: Chest Pain, Palpitations, Orthopnea, Paroxysmal Noc. Dyspnea, Edema, Lt Headedness, Other Symptoms Gastrointestinal: Denies: Nausea, Vomiting, Abdominal Pain, Diarrhea, Constipation, Melena, Hematochezia, Other Symptoms Genitourinary: Denies: Dysuria, Frequency, Incontinence, Hematuria, Retention, Other Symptoms Hematologic: Denies: Bruising, Bleeding Excessively, Petecchia, Purpura, Enlarged Lymph Nodes, Other Hematologic Endocrine: Denies: Polydipsia, Polyphagia, Polyuria, Heat Intolerance, Cold Intolerance, Other Endocrine Sx Musculoskeletal: Denies: Neck Pain, Back Pain, Shoulder Pain, Arm Pain, Hand Pain, Leg Pain, Foot Pain, Joint Pain, Muscle Pain, Spasms, Other Symptoms Neurological: Denies: Weakness, Numbness, Incoordination, Change in speech, Confusion, Seizures, Other Symptoms Psych: Denies: Mood Normal, Anxiety, Depression, Memory Issues, Thoughts of Self Harm, Anger, Thoughts of Harming Other, Other Psych Objective Physical Examination General Exam: Positive: Alert, Cooperative, No Acute Distress Eye Exam: Positive: Conjunctiva & lids normal; Negative: Sclera icteric ENT Exam: Positive: Atraumatic, Mucous membr. moist/pink Neck Exam: Positive: Supple Chest Exam: Positive: Clear to auscultation, Normal air movement, Diminished (diminished lung sounds in upper lung lobes b/l when aus anteriorly); Negative: Rales, Rhonchi, Wheezing Heart Exam: Positive: Rate Normal, Normal S1, Normal S2, Other (right sided chest wall tenderness in anterior lower border) Abdomen Exam: Positive: Normal bowel sounds, Soft; Negative: Tenderness Skin Exam: Positive: Nl turgor and temperature Neuro Exam: Positive: Normal Speech, Cranial Nerves 3-12 NL, Other (Bilateral upper extremities +4/5; and bilateral lower extremities 5/5) Psych Exam: Positive: Mental status NL, Memory Intact, Oriented x 3 A-FIB/CHADSVASC A-FIB History Current/History of A-Fib/PAF?: Yes Current Oral Anticoagulant The: Yes Assessment /Plan Problems (1) Pulmonary embolism Status: Acute Problem Text: Non-productive cough. Pt is sat well on RA with stable vital signs; it was noted that pt has dyspnea but pt denies at the time of the examination. Pt reported extremity weakness and has been unable to walk since d/ c home last time. CTA showed PE in right lower lobe. Will have the pt on Eliquis 10mg BID PO. Continue to observe the pt. Continuous pulse ox with oxygen therapy. Vital signs as scheduled. Duplex US in bilateral LE and echo ordered. As per patient's family and her . He is unable to take care of for discussed with the case management. Possibly patient will be transferred to subacute care facility was the bed is available PT, OT in progress Echocardiogram shows left ventricular hypertrophy with pacemaker wire but no other abnormalities Discussed with patient and her daughters at the bedside (2) Pneumonia Status: Chronic Problem Text: CTA showed consolidation in the lingula and left lower lobe. has a history of histoplasmosis and these findings are old compared to old CAT scans Evidence of pneumonia and the antibiotics were DC'd by Dr. Gray Explained to patient and her family at bedside that there is no need for IV antibiotics at the present time (3) Weakness of extremity Status: Acute Problem Text: Reported extremity weakness and was unable to walk since being d/c home from prior hospital visit. bilateral UE 4/5 strength with bilateral LE 5/5 strength. No other focal neurological signs, pt A&OX3 with CN2-12 fxn grossly intact. PT/OT ordered. Urine Cx and blood Cx pending. (4) Type 2 diabetes mellitus Status: Chronic (5) H/O non-insulin dependent diabetes mellitus Problem Text: FS glucose 172 upon admission shown on BMP. insulin sliding scale with FSBS AC/HS. Cont to monitor the pt. (6) Hypertension Status: Chronic Problem Text: Hx of HTN. Cont home med Coreg. BP roughly stable 130/60. Vital signs as scheulded and cont to monitor the pt. Plan/VTE VTE Prophylaxis Ordered?: Yes (pt on eliquis for PE) Plan Therapy: OT Diagnostics: Repeat Labs in AM Anticipated Discharge: Home VS, I&O, 24H, Fishbone Vital Signs/I&O Vital Signs Date Time Temp Pulse Resp B/P (MAP) Pulse Ox O2 Delivery O2 Flow Rate FiO2 11/04/18 09:00 94 Room Air 11/04/18 08:09 62 150/70 11/04/18 06:00 97.6 18 I&O- Last 24 Hours up to 6 AM 11/04/18 06:00 Intake Total 890 ml Output Total 200 ml Balance 690 ml Laboratory Data 24H LABS Laboratory Tests 2 11/03/18 17:10: Bedside Glucose (Misc Panel) 119H 11/03/18 19:59: Bedside Glucose (Misc Panel) 114H 11/04/18 05:40: Nucleated Red Blood Cells % (auto) 0.2H, Anion Gap 4L, Glomerular Filtration Rate 50.7, Blood Urea Nitrogen 36H, Creatinine 1.09, Sodium Level 143, Potassium Level 4.3, Chloride Level 110H, Carbon Dioxide Level 29, Calcium Level 9.0 11/04/18 11:43: Bedside Glucose (Misc Panel) 103 CBC/BMP Laboratory Tests 11/04/18 05:40 Red Blood Count 4.19, Mean Corpuscular Volume 89.7, Mean Corpuscular Hemoglobin 27.4, Mean Corpuscular Hemoglobin Concent 30.6 L, Red Cell Distribution Width 18.5 H, Calcium Level 9.0 Microbiology Microbiology 10/31/18 Blood Culture - Preliminary, Resulted No Growth after 72 hours. All specime... 11/04/18 MRSA Screen, Received Pending 10/31/18 Urine Culture - Final, Complete FAWAD MCINTYRE MD November 04, 2018 12:04
[2018-11-04 14:00] VITALS: BP 125/58
--- NOTE | 2018-11-04 14:56 | REP ---
REASON FOR EXAM: Cough. COMPARISON: Multiple, latest 10/04/2018 two view exam. The technique utilized in obtaining the radiograph has magnified the cardiac silhouette and accentuated the interstitial markings. Dual chamber bipolar pacemaker device is unchanged. Cardiomegaly again noted accentuated by portable technique. Once again, there is interstitial fibrotic change status quo. Once again, there are bibasilar opacities left greater than right essentially unchanged, but accentuated by technique. No new abnormal opacities seem to have developed on this limited portable examination. IMPRESSION: Persistent bibasilar opacities left greater than right. I cannot rule out the possibility of acute disease superimposed upon chronic change. Electronically Signed by Jethro Alcantara DO 11/04/2018 03:04 P
[2018-11-04] MEDS: SIMVASTATIN 40 MG TAB PO SCH (21:22)
[2018-11-04 22:00] VITALS: BP 142/58; O2SAT 94
[2018-11-05 06:00] VITALS: BP 146/69
[2018-11-05 06:01] LABS: HEMATOCRIT 37.8 % (36.0-47.0); HEMOGLOBIN 11.5 g/dl (12.0-15.5); MEAN CORPUSCULAR HEMOGLOBIN 27.8 pg (27.0-33.0); MEAN CORPUSCULAR HGB CONC 30.4 g/dl (32.0-36.5); MEAN CORPUSCULAR VOLUME 91.3 fl (80.0-96.0); PLATELET COUNT, AUTOMATED 251 10^3/uL (150-450); RED BLOOD COUNT 4.14 10^6/uL (4.00-5.40); WHITE BLOOD COUNT 11.7 10^3/uL (4.0-10.0)
[2018-11-05 06:43] LABS: CALCIUM LEVEL 8.9 MG/DL (8.8-10.2); CREATININE FOR GFR 0.97 MG/DL (0.55-1.30); POTASSIUM SERUM 4.5 MEQ/L (3.5-5.1)
[2018-11-05] MEDS: ASPIRIN 81 MG ENTERIC TAB PO SCH (08:06)
[2018-11-05] MEDS: MAGNESIUM CHLORIDE 64 MG TABCR (SLO MAG) PO SCH ×2 (08:06→21:00)
[2018-11-05] MEDS: glipiZIDE XL 5 MG TABCR PO SCH (08:07)
[2018-11-05] MEDS: APIXABAN 5 MG TAB (ELIQUIS) PO SCH ×2 (08:07→21:44)
[2018-11-05] MEDS: SERTRALINE 100 MG TAB PO SCH ×2 (08:07→21:45)
[2018-11-05] MEDS: VITAMIN D 1,000 INTERNATIONAL UNITS TABLET PO SCH (08:08)
[2018-11-05] MEDS: CARVedilol 12.5 MG TAB PO SCH ×2 (08:08→21:00)
[2018-11-05] MEDS: HumaLOG INSULIN (NovoLOG) PER UNIT SC SCH ×4 (08:09→21:00)
[2018-11-05] MEDS: SALMETEROL DISKUS 50MCG INHALER (SEREVENT) INH SCH (08:54)
[2018-11-05 09:00] VITALS: O2SAT 93
--- NOTE | 2018-11-05 09:55 | IPNPDOC ---
Subjective Date Seen The patient was seen on 11/05/18. Subjective Chief Complaint/HPI Patient offers no new complaints, sitting in bed eating her breakfast General: Denies: ROS Unobtainable, Chills, Night Sweats, Fatigue, Malaise, Normal Appetite, Other Symptoms Constitutional: Denies: Chills, Fever, Malaise, Night Sweats, Weakness, Fatigue, Weight Loss, Lethargy, Other Eyes: Denies: Pain, Vision change, Conjunctivae inflammation, Eyelid inflammation, Redness, Other ENT: Denies: Head Aches, Ear Pain, Dysphagia, Sinus Congestion, Post Nasal Drip, Sore Throat, Epistaxis, Other Symptoms Skin: Denies: Rash, Lesions, Jaundice, Bruising, Itching, Dry, Breakdown, Nail Changes, Other Pulmonary: Denies: Dyspnea, Cough, Pleuritic Chest Pain, Other Symptoms Cardiovascular: Denies: Chest Pain, Palpitations, Orthopnea, Paroxysmal Noc. Dyspnea, Edema, Lt Headedness, Other Symptoms Gastrointestinal: Denies: Nausea, Vomiting, Abdominal Pain, Diarrhea, Const ipation, Melena, Hematochezia, Other Symptoms Genitourinary: Denies: Dysuria, Frequency, Incontinence, Hematuria, Retention, Other Symptoms Hematologic: Denies: Bruising, Bleeding Excessively, Petecchia, Purpura, Enlarged Lymph Nodes, Other Hematologic Endocrine: Denies: Polydipsia, Polyphagia, Polyuria, Heat Intolerance, Cold Intolerance, Other Endocrine Sx Musculoskeletal: Denies: Neck Pain, Back Pain, Shoulder Pain, Arm Pain, Hand Pain, Leg Pain, Foot Pain, Joint Pain, Muscle Pain, Spasms, Other Symptoms Neurological: Denies: Weakness, Numbness, Incoordination, Change in speech, C onfusion, Seizures, Other Symptoms Psych: Denies: Mood Normal, Anxiety, Depression, Memory Issues, Thoughts of Self Harm, Anger, Thoughts of Harming Other, Other Psych Objective Physical Examination General Exam: Positive: Alert, Cooperative, No Acute Distress Eye Exam: Positive: Conjunctiva & lids normal; Negative: Sclera icteric ENT Exam: Positive: Atraumatic, Mucous membr. moist/pink Neck Exam: Positive: Supple Chest Exam: Positive: Clear to auscultation, Normal air movement, Diminished (diminished lung sounds in upper lung lobes b/l when aus anteriorly); Negative: Rales, Rhonchi, Wheezing Heart Exam: Positive: Rate Normal, Normal S1, Normal S2, Other (right sided chest wall tenderness in anterior lower border) Abdomen Exam: Positive: Normal bowel sounds, Soft; Negative: Tenderness Skin Exam: Positive: Nl turgor and temperature Neuro Exam: Positive: Normal Speech, Cranial Nerves 3-12 NL, Other (Bilateral upper extremities +4/5; and bilateral lower extremities 5/5) Psych Exam: Positive: Mental status NL, Memory Intact, Oriented x 3 A-FIB/CHADSVASC A-FIB History Current/History of A-Fib/PAF?: Yes Current Oral Anticoagulant The: Yes Assessment /Plan Problems (1) Pulmonary embolism Status: Acute Problem Text: Non-productive cough. Pt is sat well on RA with stable vital signs; it was noted that pt has dyspnea but pt denies at the time of the examin ation. Pt reported extremity weakness and has been unable to walk since d/c home last time. CTA showed PE in right lower lobe. Will have the pt on Eliquis 10mg BID PO. Continue to observe the pt. Continuous pulse ox with oxygen therapy. Vital signs as scheduled. Duplex US in bilateral LE and echo ordered. As per patient's family and her . He is unable to take care of for discussed with the case management. Possibly patient will be transferred to subacute care facility was the bed is available PT, OT in progress Echocardiogram shows left ventricular hypertrophy with pacemaker wire but no other abnormalities Discussed with patient and her daughters at the bedside Awaiting placement in a rehabilitation facility (2) Pneumonia Status: Chronic Problem Text: CTA showed consolidation in the lingula and left lower lobe. has a history of histoplasmosis and these findings are old compared to old CAT scans Evidence of pneumonia and the antibiotics were DC'd by Dr. Gray Explained to patient and her family at bedside that there is no need for IV antibiotics at the present time (3) Weakness of extremity Status: Acute Problem Text: Reported extremity weakness and was unable to walk since being d/c home from prior hospital visit. bilateral UE 4/5 strength with bilateral LE 5/5 strength. No other focal neurological signs, pt A&OX3 with CN2-12 fxn grossly intact. PT/OT ordered. Urine Cx and blood Cx pending. (4) Type 2 diabetes mellitus Status: Chronic (5) H/O non-insulin dependent diabetes mellitus Problem Text: FS glucose 172 upon admission shown on BMP. insulin sliding scale with FSBS AC/HS. Cont to monitor the pt. (6) Hypertension Status: Chronic Problem Text: Hx of HTN. Cont home med Coreg. BP roughly stable 130/60. Vital signs as scheulded and cont to monitor the pt. Plan/VTE VTE Prophylaxis Ordered?: Yes (pt on eliquis for PE) Plan Therapy: OT Diagnostics: Repeat Labs in AM Anticipated Discharge: Home VS, I&O, 24H, Fishbone Vital Signs/I&O Vital Signs Date Time Temp Pulse Resp B/P (MAP) Pulse Ox O2 Delivery O2 Flow Rate FiO2 11/05/18 08:08 60 140/70 11/05/18 06:00 97.5 16 95 11/04/18 22:00 Room Air I&O- Last 24 Hours up to 6 AM 11/05/18 06:00 Intake Total 780 ml Output Total 350 ml Balance 430 ml Laboratory Data 24H LABS Laboratory Tests 2 11/04/18 11:43: Bedside Glucose (Misc Panel) 103 11/04/18 16:37: Bedside Glucose (Misc Panel) 193H 11/04/18 20:27: Bedside Glucose (Misc Panel) 176H 11/05/18 05:30: Nucleated Red Blood Cells % (auto) 0.2H, Anion Gap 7L, Glomerular Filtration Rate 58.0, Blood Urea Nitrogen 32H, Creatinine 0.97, Sodium Level 142, Potassium Level 4.5, Chloride Level 109H, Carbon Dioxide Level 26, Calcium Level 8.9 CBC/BMP Laboratory Tests 11/05/18 05:30 Red Blood Count 4.14, Mean Corpuscular Volume 91.3, Mean Corpuscular Hemoglobin 27.8, Mean Corpuscular Hemoglobin Concent 30.4 L, Red Cell Distribution Width 18.2 H, Calcium Level 8.9 Microbiology Microbiology 10/31/18 Blood Culture - Preliminary, Resulted No Growth after 72 hours. All specime... 11/04/18 MRSA Screen - Final, Complete 10/31/18 Urine Culture - Final, Complete FAWAD MCINTYRE MD November 05, 2018 09:55
[2018-11-05] MEDS: SIMVASTATIN 40 MG TAB PO SCH (21:45)
[2018-11-05 22:00] VITALS: BP 146/70
[2018-11-06 06:00] VITALS: BP 130/60
[2018-11-06 06:03] LABS: HEMATOCRIT 36.1 % (36.0-47.0); MEAN CORPUSCULAR HEMOGLOBIN 27.3 pg (27.0-33.0); MEAN CORPUSCULAR HGB CONC 30.5 g/dl (32.0-36.5); MEAN CORPUSCULAR VOLUME 89.6 fl (80.0-96.0); PLATELET COUNT, AUTOMATED 230 10^3/uL (150-450); RED BLOOD COUNT 4.03 10^6/uL (4.00-5.40); WHITE BLOOD COUNT 10.5 10^3/uL (4.0-10.0)
[2018-11-06 06:15] LABS: CALCIUM LEVEL 8.1 MG/DL (8.8-10.2); CREATININE FOR GFR 0.98 MG/DL (0.55-1.30); GLOMERULAR FILTRATION RATE 57.3 (>32); POTASSIUM SERUM 4.2 MEQ/L (3.5-5.1)
[2018-11-06] MEDS: HumaLOG INSULIN (NovoLOG) PER UNIT SC SCH ×4 (07:30→21:00)
[2018-11-06] MEDS: MAGNESIUM CHLORIDE 64 MG TABCR (SLO MAG) PO SCH ×2 (08:16→21:41)
[2018-11-06] MEDS: VITAMIN D 1,000 INTERNATIONAL UNITS TABLET PO SCH (08:17)
[2018-11-06] MEDS: APIXABAN 5 MG TAB (ELIQUIS) PO SCH ×2 (08:17→21:41)
[2018-11-06] MEDS: ASPIRIN 81 MG ENTERIC TAB PO SCH (08:17)
[2018-11-06] MEDS: CARVedilol 12.5 MG TAB PO SCH ×2 (08:18→21:41)
[2018-11-06] MEDS: SERTRALINE 100 MG TAB PO SCH ×2 (08:18→21:41)
[2018-11-06] MEDS: glipiZIDE XL 5 MG TABCR PO SCH (08:19)
[2018-11-06 08:34] LABS: HEMOGLOBIN A1c 8.7 %
[2018-11-06 09:00] VITALS: O2SAT 93
[2018-11-06] MEDS: SALMETEROL DISKUS 50MCG INHALER (SEREVENT) INH SCH (09:03)
--- NOTE | 2018-11-06 10:03 | IPNPDOC ---
Subjective Date Seen The patient was seen on 11/06/18. Subjective Chief Complaint/HPI Patient is status quo offers no new complaints at the present time. As per nursing staff, urine was foul-smelling General: Denies: ROS Unobtainable, Chills, Night Sweats, Fatigue, Malaise, Normal Appetite, Other Symptoms Constitutional: Denies: Chills, Fever, Malaise, Night Sweats, Weakness, Fatigue, Weight Loss, Lethargy, Other Eyes: Denies: Pain, Vision change, Conjunctivae inflammation, Eyelid inflammation, Redness, Other ENT: Denies: Head Aches, Ear Pain, Dysphagia, Sinus Congestion, Post Nasal Drip, Sore Throat, Epistaxis, Other Symptoms Skin: Denies: Rash, Lesions, Jaundice, Bruising, Itching, Dry, Breakdown, Nail Changes, Other Pulmonary: Denies: Dyspnea, Cough, Pleuritic Chest Pain, Other Symptoms Cardiovascular: Denies: Chest Pain, Palpitations, Orthopnea, Paroxysmal Noc. Dyspnea, Edema, Lt Headedness, Other Symptoms Gastrointestinal: Denies: Nausea, Vomiting, Abdominal Pain, Diarrhea, Constipation, Melena, Hematochezia, Other Symptoms Genitourinary: Denies: Dysuria, Frequency, Incontinence, Hematuria, Retention, Other Symptoms Hematologic: Denies: Bruising, Bleeding Excessively, Petecchia, Purpura, Enlarged Lymph Nodes, Other Hematologic Endocrine: Denies: Polydipsia, Polyphagia, Polyuria, Heat Intolerance, Cold Intolerance, Other Endocrine Sx Musculoskeletal: Denies: Neck Pain, Back Pain, Shoulder Pain, Arm Pain, Hand Pain, Leg Pain, Foot Pain, Joint Pain, Muscle Pain, Spasms, Other Symptoms Neurological: Denies: Weakness, Numbness, Incoordination, Change in speech, Confusion, Seizures, Other Symptoms Psych: Denies: Mood Normal, Anxiety, Depression, Memory Issues, Thoughts of Self Harm, Anger, Thoughts of Harming Other, Other Psych Objective Physical Examination General Exam: Positive: Alert, Cooperative, No Acute Distress Eye Exam: Positive: Conjunctiva & lids normal; Negative: Sclera icteric ENT Exam: Positive: Atraumatic, Mucous membr. moist/pink Neck Exam: Positive: Supple Chest Exam: Positive: Clear to auscultation, Normal air movement, Diminished (diminished lung sounds in upper lung lobes b/l when aus anteriorly); Negative: Rales, Rhonchi, Wheezing Heart Exam: Positive: Rate Normal, Normal S1, Normal S2, Other (right sided chest wall tenderness in anterior lower border) Abdomen Exam: Positive: Normal bowel sounds, Soft; Negative: Tenderness Skin Exam: Positive: Nl turgor and temperature Neuro Exam: Positive: Normal Speech, Cranial Nerves 3-12 NL, Other (Bilateral upper extremities +4/5; and bilateral lower extremities 5/5) Psych Exam: Positive: Mental status NL, Memory Intact, Oriented x 3 A-FIB/CHADSVASC A-FIB History Current/History of A-Fib/PAF?: Yes Current Oral Anticoagulant The: Yes Assessment /Plan Problems (1) Pulmonary embolism Status: Acute Problem Text: Non-productive cough. Pt is sat well on RA with stable vital signs; it was noted that pt has dyspnea but pt denies at the time of the examination. Pt reported extremity weakness and has been unable to walk since d/c home last time. CTA showed PE in right lower lobe. Will have the pt on Eliquis 10mg BID PO. Continue to observe the pt. Continuous pulse ox with oxygen therapy. Vital signs as scheduled. Duplex US in bilateral LE and echo ordered. As per patient's family and her . He is unable to take care of for discussed with the case management. Possibly patient will be transferred to subacute care facility was the bed is available PT, OT in progress Echocardiogram shows left ventricular hypertrophy with pacemaker wire but no other abnormalities Discussed with patient and her daughters at the bedside Awaiting placement in a rehabilitation facility (2) Pneumonia Status: Chronic Problem Text: CTA showed consolidation in the lingula and left lower lobe. has a history of histoplasmosis and these findings are old compared to old CAT scans Evidence of pneumonia and the antibiotics were DC'd by Dr. Gray Explained to patient and her family at bedside that there is no need for IV antibiotics at the present time (3) Weakness of extremity Status: Acute Problem Text: Reported extremity weakness and was unable to walk since being d/c home from prior hospital visit. bilateral UE 4/5 strength with bilateral LE 5/5 strength. No other focal neurological signs, pt A&OX3 with CN2-12 fxn grossly intact. PT/OT ordered. Urine Cx and blood Cx pending. Patient does have a dependent edema on both upper extremities but mostly pronounced on the left side. Will start Lasix 20 mg by mouth daily and patient was advised to keep her arm elevated above the heart level (4) Type 2 diabetes mellitus Status: Chronic (5) H/O non-insulin dependent diabetes mellitus Problem Text: FS glucose 172 upon admission shown on BMP. insulin sliding scale with FSBS AC/HS. Cont to monitor the pt. Decrease glipizide dose to 5 mg by mouth daily secondary to hypoglycemic event this morning and secondary to poor oral intake by patient Hemoglobin A1c is 8.4 (6) Hypertension Status: Chronic Problem Text: Hx of HTN. Cont home med Coreg. BP roughly stable 130/60. Vital signs as scheulded and cont to monitor the pt. (7) UTI (urinary tract infection) Status: Acute Problem Text: Start Rocephin 1 g IV piggyback every 24-hour Repeat UA and urine culture has been ordered Plan/VTE VTE Prophylaxis Ordered?: Yes (pt on eliquis for PE) Plan Therapy: OT Diagnostics: Repeat Labs in AM Anticipated Discharge: Home VS, I&O, 24H, [facility] Vital Signs/I&O Vital Signs Date Time Temp Pulse Resp B/P (MAP) Pulse Ox O2 Delivery O2 Flow Rate FiO2 11/06/18 08:18 60 132/60 11/06/18 06:00 98.7 16 91 11/05/18 09:00 Room Air I&O- Last 24 Hours up to 6 AM 11/06/18 06:00 Intake Total 1020 ml Output Total 100 ml Balance 920 ml Laboratory Data 24H LABS Laboratory Tests 2 11/05/18 11:49: Bedside Glucose (Misc Panel) 125H 11/05/18 17:45: Bedside Glucose (Misc Panel) 159H 11/05/18 21:11: Bedside Glucose (Misc Panel) 50L 11/05/18 22:08: Bedside Glucose (Misc Panel) 85 11/06/18 05:42: Nucleated Red Blood Cells % (auto) 0.0, Anion Gap 5L, Glomerular Filtration Rate 57.3, Estimated Mean Plasma Glucose 203H, Hemoglobin A1c 8.7, Blood Urea Nitrogen 31H, Creatinine 0.98, Sodium Level 145, Potassium Level 4.2, Chloride Level 111H, Carbon Dioxide Level 29, Calcium Level 8.1L 11/06/18 09:21: CBC/BMP Laboratory Tests 11/06/18 05:42 Red Blood Count 4.03, Mean Corpuscular Volume 89.6, Mean Corpuscular Hemoglobin 27.3, Mean Corpuscular Hemoglobin Concent 30.5 L, Red Cell Distribution Width 18.2 H, Calcium Level 8.1 L Microbiology Microbiology 10/31/18 Blood Culture - Final, Complete NO GROWTH AFTER 5 DAYS 11/04/18 MRSA Screen - Final, Complete 10/31/18 Urine Culture - Final, Complete FAWAD MCINTYRE MD November 06, 2018 10:03
[2018-11-06] MEDS: FUROSEMIDE 20 MG TAB PO SCH (10:54)
[2018-11-06] MEDS: cefTRIAXone SOD 1 GM in D5W MINI-BAG PLUS 50 ML IV SCH (10:54)
[2018-11-06 14:00] VITALS: BP 138/62
[2018-11-06] MEDS: SIMVASTATIN 40 MG TAB PO SCH (21:41)
[2018-11-06 22:00] VITALS: BP 138/57
[2018-11-07 06:00] VITALS: BP 158/71
[2018-11-07 06:02] LABS: HEMATOCRIT 38.6 % (36.0-47.0); HEMOGLOBIN 11.7 g/dl (12.0-15.5); MEAN CORPUSCULAR HEMOGLOBIN 27.6 pg (27.0-33.0); MEAN CORPUSCULAR HGB CONC 30.3 g/dl (32.0-36.5); PLATELET COUNT, AUTOMATED 261 10^3/uL (150-450); RED BLOOD COUNT 4.24 10^6/uL (4.00-5.40); WHITE BLOOD COUNT 12.4 10^3/uL (4.0-10.0)
[2018-11-07 06:31] LABS: ALBUMIN 2.1 GM/DL (3.2-5.2); BILIRUBIN,TOTAL 0.5 MG/DL (0.2-1.0); CALCIUM LEVEL 8.9 MG/DL (8.8-10.2); CREATININE FOR GFR 1.01 MG/DL (0.55-1.30); GLOMERULAR FILTRATION RATE 55.3 (>32); POTASSIUM SERUM 4.3 MEQ/L (3.5-5.1); TOTAL PROTEIN 6.2 GM/DL (6.4-8.2)
[2018-11-07] MEDS: SALMETEROL DISKUS 50MCG INHALER (SEREVENT) INH SCH (08:02)
[2018-11-07] MEDS: glipiZIDE XL 5 MG TABCR PO SCH (08:30)
[2018-11-07] MEDS: MAGNESIUM CHLORIDE 64 MG TABCR (SLO MAG) PO SCH ×2 (08:30→21:02)
[2018-11-07] MEDS: VITAMIN D 1,000 INTERNATIONAL UNITS TABLET PO SCH (08:31)
[2018-11-07] MEDS: APIXABAN 5 MG TAB (ELIQUIS) PO SCH ×2 (08:31→21:02)
[2018-11-07] MEDS: cefTRIAXone SOD 1 GM in D5W MINI-BAG PLUS 50 ML IV SCH (08:31)
[2018-11-07] MEDS: FUROSEMIDE 20 MG TAB PO SCH (08:31)
[2018-11-07] MEDS: SERTRALINE 100 MG TAB PO SCH ×2 (08:32→21:02)
[2018-11-07] MEDS: CARVedilol 12.5 MG TAB PO SCH ×2 (08:33→21:02)
[2018-11-07] MEDS: HumaLOG INSULIN (NovoLOG) PER UNIT SC SCH ×4 (08:33→21:00)
[2018-11-07] MEDS: ASPIRIN 81 MG ENTERIC TAB PO SCH (08:33)
[2018-11-07] MEDS ORDERED: ISOVUE-370 76% 100ML VIAL (Q9967) As Ordered ONE (08:57)
[2018-11-07 09:00] VITALS: O2SAT 93
--- NOTE | 2018-11-07 10:52 | REP ---
CT study of the chest with IV contrast: History: Shortness of breath and crackles. Comparison CT pulmonary angiogram is from November 01, 2018. There is apparently a history of colon resection for colon carcinoma. CT contrast dose: 75 mL of intravenous Isovue [address] findings: The previously noted filling defect in the right lower lobe pulmonary arterial segmental and subsegmental branch is again seen unchanged. This is consistent with pulmonary embolus. No other pulmonary embolus is appreciated. Vascular calcification is seen in the aorta. There is pleural fluid in a subpulmonic distribution in the left lower pleural space. This has increased somewhat. There is extensive consolidation today in the left lower lobe. This is essentially unchanged. Numerous soft tissue pulmonary nodules are scattered throughout the upper lobes and lower lobes bilaterally. This suggests metastatic disease. There is mild mediastinal lymphadenopathy noted with pretracheal and subcarinal lymph nodes. There is a small quantity of right pleural fluid visible today. This is a finding. There is subsegmental atelectasis in the right middle lobe which is unchanged. Marked cardiomegaly is observed with pacemaker leads. No adrenal lesion is seen. Impression: There are small bilateral pleural effusions tiny on the right and small on the left. These are a little larger than on the November 01, 2018 study. Innumerable pulmonary nodules persist bilaterally suggesting metastatic disease. Extensive consolidation left lower lobe suggestive of pneumonia. Electronically Signed by Piero Gomez MD 11/07/2018 07:15 P
--- NOTE | 2018-11-07 13:01 | IPNPDOC ---
Subjective Date Seen The patient was seen on 11/07/18. Subjective Chief Complaint/HPI , Patient was found to have a pulse ox of 87-89 and was placed on oxygen. When asked, the patient, she declines any complaints, but seems like she is in mild respiratory distress General: Denies: ROS Unobtainable, Chills, Night Sweats, Fatigue, Malaise, Normal Appetite, Other Symptoms Constitutional: Denies: Chills, Fever, Malaise, Night Sweats, Weakness, Fatigue, Weight Loss, Lethargy, Other Eyes: Denies: Pain, Vision change, Conjunctivae inflammation, Eyelid inflammation, Redness, Other ENT: Denies: Head Aches, Ear Pain, Dysphagia, Sinus Congestion, Post Nasal Drip, Sore Throat, Epistaxis, Other Symptoms Skin: Denies: Rash, Lesions, Jaundice, Bruising, Itching, Dry, Breakdown, Nail Changes, Other Pulmonary: Reports: Dyspnea Cardiovascular: Denies: Chest Pain, Palpitations, Orthopnea, Paroxysmal Noc. Dyspnea, Edema, Lt Headedness, Other Symptoms Gastrointestinal: Denies: Nausea, Vomiting, Abdominal Pain, Diarrhea, Constipation, Melena, Hematochezia, Other Symptoms Genitourinary: Denies: Dysuria, Frequency, Incontinence, Hematuria, Retention, Other Symptoms Hematologic: Denies: Bruising, Bleeding Excessively, Petecchia, Purpura, Enlarged Lymph Nodes, Other Hematologic Endocrine: Denies: Polydipsia, Polyphagia, Polyuria, Heat Intolerance, Cold Intolerance, Other Endocrine Sx Musculoskeletal: Denies: Neck Pain, Back Pain, Shoulder Pain, Arm Pain, Hand Pain, Leg Pain, Foot Pain, Joint Pain, Muscle Pain, Spasms, Other Symptoms Neurological: Denies: Weakness, Numbness, Incoordination, Change in speech, Confusion, Seizures, Other Symptoms Psych: Denies: Mood Normal, Anxiety, Depression, Memory Issues, Thoughts of Se lf Harm, Anger, Thoughts of Harming Other, Other Psych Objective Physical Examination General Exam: Positive: Alert, Cooperative, No Acute Distress Eye Exam: Positive: Conjunctiva & lids normal; Negative: Sclera icteric ENT Exam: Positive: Atraumatic, Mucous membr. moist/pink Neck Exam: Positive: Supple Chest Exam: Positive: Clear to auscultation, Normal air movement, Diminished (diminished lung sounds in upper lung lobes b/l when aus anteriorly); Negative: Rales, Rhonchi, Wheezing Heart Exam: Positive: Rate Normal, Normal S1, Normal S2, Other (right sided chest wall tenderness in anterior lower border) Abdomen Exam: Positive: Normal bowel sounds, Soft; Negative: Tenderness Skin Exam: Positive: Nl turgor and temperature Neuro Exam: Positive: Normal Speech, Cranial Nerves 3-12 NL, Other (Bilateral upper extremities +4/5; and bilateral lower extremities 5/5) Psych Exam: Positive: Mental status NL, Memory Intact, Oriented x 3 A-FIB/CHADSVASC A-FIB History Current/History of A-Fib/PAF?: Yes Current Oral Anticoagulant The: Yes Assessment /Plan Problems (1) Pneumonia Status: Chronic Problem Text: Possible hospital-acquired pneumonia on the left lower lobe Crackles audible on examination Will change antibiotics to Zosyn and vanco Oxygen support by 2 L nasal cannula A.m. laboratory work has been ordered Any close monitoring (2) Pulmonary embolism Status: Acute Problem Text: Non-productive cough. Pt is sat well on RA with stable vital signs; it was noted that pt has dyspnea but pt denies at the time of the examination. Pt reported extremity weakness and has been unable to walk since d/c home last time. CTA showed PE in right lower lobe. Will have the pt on Eliquis 10mg BID PO. Continue to observe the pt. Continuous pulse ox with oxygen therapy. Vital signs as scheduled. Duplex US in bilateral LE and echo ordered. As per patient's family and her . He is unable to take care of for discussed with the case management. Possibly patient will be transferred to subacute care facility was the bed is available PT, OT in progress Echocardiogram shows left ventricular hypertrophy with pacemaker wire but no other abnormalities Patient placed on oxygen supplementation with [address] chest with IV contrast has been requested to rule out any new hospital-acquired pneumonia or pulmonary congestion . Continue Rocephin in the meantime, till the CT chest report has been interpreted and management and will be changed accordingly (3) Weakness of extremity Status: Acute Problem Text: Reported extremity weakness and was unable to walk since being d/c home from prior hospital visit. bilateral UE 4/5 strength with bilateral LE 5/5 strength. No other focal neurological signs, pt A&OX3 with CN2-12 fxn grossly intact. PT/OT ordered. Urine Cx and blood Cx pending. Patient does have a dependent edema on both upper extremities but mostly pronounced on the left side. Will start Lasix 20 mg by mouth daily and patient was advised to keep her arm elevated above the heart level (4) Type 2 diabetes mellitus Status: Chronic (5) H/O non-insulin dependent diabetes mellitus Problem Text: FS glucose 172 upon admission shown on BMP. insulin sliding scale with FSBS AC/HS. Cont to monitor the pt. Decrease glipizide dose to 5 mg by mouth daily secondary to hypoglycemic event this morning and secondary to poor oral intake by patient Hemoglobin A1c is 8.4 (6) Hypertension Status: Chronic Problem Text: Hx of HTN. Cont home med Coreg. BP roughly stable 130/60. Vital signs as scheulded and cont to monitor the pt. (7) UTI (urinary tract infection) Status: Acute Problem Text: DC Rocephin Started on Zosyn urine C&S has been negative Plan/VTE VTE Prophylaxis Ordered?: Yes (pt on eliquis for PE) Plan Therapy: OT Diagnostics: Repeat Labs in AM Anticipated Discharge: Home VS, I&O, 24H, [facility] Vital Signs/I&O Vital Signs Date Time Temp Pulse Resp B/P (MAP) Pulse Ox O2 Delivery O2 Flow Rate FiO2 11/07/18 09:00 93 Nasal Cannula 11/07/18 08:33 60 152/70 11/07/18 06:00 97.8 18 I&O- Last 24 Hours up to 6 AM 11/07/18 05:59 Intake Total 465 ml Output Total 100 ml Balance 365 ml Laboratory Data 24H LABS Laboratory Tests 2 11/06/18 16:38: Bedside Glucose (Misc Panel) 196H 11/06/18 19:47: Bedside Glucose (Misc Panel) 212H 11/07/18 05:30: Nucleated Red Blood Cells % (auto) 0.0, Anion Gap 4L, Glomerular Filtration Rate 55.3, Blood Urea Nitrogen 32H, Creatinine 1.01, Sodium Level 140, Potassium Level 4.3, Chloride Level 108H, Carbon Dioxide Level 28, Calcium Level 8.9, Aspartate Amino Transf (AST/SGOT) 26, Alanine Aminotransferase (ALT/SGPT) 36, Alkaline Phosphatase 69, Total Bilirubin 0.5, Total Protein 6.2L, Albumin 2.1L, Albumin/Globulin Ratio 0.51L 11/07/18 11:21: Bedside Glucose (Misc Panel) 133H CBC/BMP Laboratory Tests 11/07/18 05:30 Red Blood Count 4.24, Mean Corpuscular Volume 91.0, Mean Corpuscular Hemoglobin 27.6, Mean Corpuscular Hemoglobin Concent 30.3 L, Red Cell Distribution Width 18.4 H, Calcium Level 8.9, Aspartate Amino Transf (AST/SGOT) 26, Alanine Aminotransferase (ALT/SGPT) 36, Alkaline Phosphatase 69, Total Bilirubin 0.5, Total Protein 6.2 L, Albumin 2.1 L Microbiology Microbiology 10/31/18 Blood Culture - Final, Complete NO GROWTH AFTER 5 DAYS 11/04/18 MRSA Screen - Final, Complete 11/06/18 Urine Culture, Received Pending 10/31/18 Urine Culture - Final, Complete FAWAD MCINTYRE MD November 07, 2018 13:01
[2018-11-07 14:00] VITALS: BP 123/58
[2018-11-07] MEDS: PIPERACILLIN/TAZOBACTAM SOD 3.375 GM in D5W MINI-BAG PLUS 50 ML IV SCH ×2 (14:37→21:01)
[2018-11-07] MEDS ORDERED: VANCOMYCIN HCL 750 MG, VIAL MATE ADAPTER 1 EACH in D5W 250 ML IV ONE (16:00)
[2018-11-07] MEDS ORDERED: VANCOMYCIN HCL 500 MG in D5W MINI-BAG PLUS 100 ML IV ONE (17:00)
--- NOTE | 2018-11-07 17:42 | PHACANCOPD ---
PHARMACY VANCOMYCIN DOSING Pt Demographics Demographics Patient Age:88 , Weight:68.000 , Gender: female Adjusted Body Weight Date: 11/07/18, Adjusted Body Weight: [68] Kg Events Past 24 Hours Events Past 24 Hours: NO: Dialysis, Diuretic Therapy, Change in CrCl, Fever, Elevation in WBC, Pending Diagnostics, Pending Procedures, Other Vancomycin Vancomycin indication: HAP Vancomycin Target Ranges: 15-20 mcg/ml Vancomycin Load Y/N: Yes Load Dose Date Time Vancomycin Load Dose:1.25G Date:11/07/18 Time: 16:00 Vancomycin Dose Date: 11/07/18. Current Vancomycin Dose: [1G IV Q24H] Intermittent Dosing?: No Labs Labs Item Value Date Time White Blood Count 11.9 10^3/uL H 11/04/18 0540 White Blood Count 11.7 10^3/uL H 11/05/18 0530 White Blood Count 10.5 10^3/uL H 11/06/18 0542 White Blood Count 12.4 10^3/uL H 11/07/18 0530 Creatinine 0.97 MG/DL 11/05/18 0530 Creatinine 0.98 MG/DL 11/06/18 0542 Creatinine 1.01 MG/DL 11/07/18 0530 Micro Microbiology 10/31/18 Blood Culture - Final, Complete NO GROWTH AFTER 5 DAYS 11/04/18 MRSA Screen - Final, Complete 11/06/18 Urine Culture, Received Pending 10/31/18 Urine Culture - Final, Complete Creatinine Clearance Date:11/07/18. Creatinine Clearance: [38.5ML/MIN]. Assessment and Plan Maintaining Current Dose?: Yes Reason for dose change: No Dose Change Pharmacist Note Pharmacist Note Date: 11/07/18. Pharmacist note: Pt is an 88 year old female being treated for HAP goal trough 10-20mcg/ml. To achieve goal the patient will receive a 1.25g loading dose 11/07/18 @16. Maintenance therapy will consist of 1g IV every 24 spencer rs starting 11/08/18 @6. We will continue to monitor and adjust the dose as needed. AMADOU SCHRADER PHARMACY November 07, 2018 17:42
[2018-11-07] MEDS: SIMVASTATIN 40 MG TAB PO SCH (21:02)
[2018-11-07 22:00] VITALS: BP 143/63
[2018-11-08] MEDS: PIPERACILLIN/TAZOBACTAM SOD 3.375 GM in D5W MINI-BAG PLUS 50 ML IV SCH ×4 (03:04→21:15)
[2018-11-08 06:00] VITALS: BP 164/72
[2018-11-08 06:05] LABS: MEAN CORPUSCULAR HEMOGLOBIN 27.7 pg (27.0-33.0); MEAN CORPUSCULAR VOLUME 92.4 fl (80.0-96.0); PLATELET COUNT, AUTOMATED 187 10^3/uL (150-450); RED BLOOD COUNT 4.33 10^6/uL (4.00-5.40); WHITE BLOOD COUNT 10.6 10^3/uL (4.0-10.0)
[2018-11-08 06:45] LABS: CALCIUM LEVEL 8.1 MG/DL (8.8-10.2); CREATININE FOR GFR 1.03 MG/DL (0.55-1.30); GLOMERULAR FILTRATION RATE 54.1 (>32); POTASSIUM SERUM 4.4 MEQ/L (3.5-5.1)
[2018-11-08] MEDS: SALMETEROL DISKUS 50MCG INHALER (SEREVENT) INH SCH (07:30)
[2018-11-08] MEDS: HumaLOG INSULIN (NovoLOG) PER UNIT SC SCH ×4 (08:02→21:00)
[2018-11-08] MEDS: MAGNESIUM CHLORIDE 64 MG TABCR (SLO MAG) PO SCH ×2 (08:03→21:25)
[2018-11-08] MEDS: APIXABAN 5 MG TAB (ELIQUIS) PO SCH ×2 (08:03→21:24)
[2018-11-08] MEDS: SERTRALINE 100 MG TAB PO SCH ×2 (08:03→21:22)
[2018-11-08] MEDS: FUROSEMIDE 20 MG TAB PO SCH (08:03)
[2018-11-08] MEDS: ASPIRIN 81 MG ENTERIC TAB PO SCH (08:03)
[2018-11-08] MEDS: glipiZIDE XL 5 MG TABCR PO SCH (08:03)
[2018-11-08] MEDS: VITAMIN D 1,000 INTERNATIONAL UNITS TABLET PO SCH (08:04)
[2018-11-08] MEDS: CARVedilol 12.5 MG TAB PO SCH ×2 (08:04→21:26)
[2018-11-08] MEDS: LISINOPRIL 5 MG TAB PO SCH (08:07)
[2018-11-08 09:00] VITALS: O2SAT 93
--- NOTE | 2018-11-08 11:49 | IPNPDOC ---
Subjective Date Seen The patient was seen on 11/08/18. Subjective Chief Complaint/HPI Patient complaining of constipation, but no other new complaints. at the bedside General: Denies: ROS Unobtainable, Chills, Night Sweats, Fatigue, Malaise, Normal Appetite, Other Symptoms Constitutional: Denies: Chills, Fever, Malaise, Night Sweats, Weakness, Fatigue, Weight Loss, Lethargy, Other Eyes: Denies: Pain, Vision change, Conjunctivae inflammation, Eyelid infl ammation, Redness, Other ENT: Denies: Head Aches, Ear Pain, Dysphagia Skin: Denies: Rash, Lesions, Jaundice, Bruising, Itching, Dry, Breakdown, Nail Changes, Other Pulmonary: Denies: Dyspnea, Cough, Pleuritic Chest Pain, Other Symptoms Cardiovascular: Denies: Chest Pain, Palpitations, Orthopnea, Paroxysmal Noc. Dyspnea, Edema, Lt Headedness, Other Symptoms Gastrointestinal: Reports: Constipation Genitourinary: Denies: Dysuria, Frequency, Incontinence, Hematuria, Retention, Other Symptoms Hematologic: Denies: Bruising, Bleeding Excessively, Petecchia, Purpura, Enlarged Lymph Nodes, Other Hematologic Endocrine: Denies: Polydipsia, Polyphagia, Polyuria, Heat Intolerance, Cold Intolerance, Other Endocrine Sx Musculoskeletal: Denies: Neck Pain, Back Pain, Shoulder Pain, Arm Pain, Hand Pain, Leg Pain, Foot Pain, Joint Pain, Muscle Pain, Spasms, Other Symptoms Neurological: Denies: Weakness, Numbness, Incoordination, Change in speech, Confusion, Seizures, Other Symptoms Psych: Denies: Mood Normal, Anxiety, Depression, Memory Issues, Thoughts of Self Harm, Anger, Thoughts of Harming Other, Other Psych Objective Physical Examination General Exam: Positive: Alert, Cooperative, No Acute Distress Eye Exam: Positive: Conjunctiva & lids normal; Negative: Sclera icteric ENT Exam: Positive: Atraumatic, Mucous membr. moist/pink Neck Exam: Positive: Supple Chest Exam: Positive: Clear to auscultation, Normal air movement, Diminished (diminished lung sounds in upper lung lobes b/l when aus anteriorly); Negative: Rales, Rhonchi, Wheezing Heart Exam: Positive: Rate Normal, Normal S1, Normal S2, Other (right sided chest wall tenderness in anterior lower border) Abdomen Exam: Positive: Normal bowel sounds, Soft; Negative: Tenderness Skin Exam: Positive: Nl turgor and temperature Neuro Exam: Positive: Normal Speech, Cranial Nerves 3-12 NL, Other (Bilateral upper extremities +4/5; and bilateral lower extremities 5/5) Psych Exam: Positive: Mental status NL, Memory Intact, Oriented x 3 A-FIB/CHADSVASC A-FIB History Current/History of A-Fib/PAF?: Yes Current Oral Anticoagulant The: Yes Assessment /Plan Problems (1) Pneumonia Status: Chronic Problem Text: Possible hospital-acquired pneumonia on the left lower lobe Crackles audible on examination Will change antibiotics to Zosyn and vanco Oxygen support by 2 L nasal cannula Infection improves progressively Will follow CBC in a.m. (2) Pulmonary embolism Status: Acute Problem Text: Non-productive cough. Pt is sat well on RA with stable vital signs; it was noted that pt has dyspnea but pt denies at the time of the ex amination. Pt reported extremity weakness and has been unable to walk since d/c home last time. CTA showed PE in right lower lobe. Will have the pt on Eliquis 10mg BID PO. Continue to observe the pt. Continuous pulse ox with oxygen therapy. Vital signs as scheduled. Duplex US in bilateral LE and echo ordered. As per patient's family and her . He is unable to take care of for discussed with the case management. Possibly patient will be transferred to subacute care facility was the bed is available PT, OT in progress Echocardiogram shows left ventricular hypertrophy with pacemaker wire but no other abnormalities Patient placed on oxygen supplementation with [address] chest with IV contrast has been requested to rule out any new hospital-acquired pneumonia or pulmonary congestion . Continue Rocephin in the meantime, till the CT chest report has been interpreted and management and will be changed accordingly (3) Weakness of extremity Status: Acute Problem Text: Reported extremity weakness and was unable to walk since being d/c home from prior hospital visit. bilateral UE 4/5 strength with bilateral LE 5/5 strength. No other focal neurological signs, pt A&OX3 with CN2-12 fxn grossly intact. PT/OT ordered. Urine Cx and blood Cx pending. Patient does have a dependent edema on both upper extremities but mostly pronounced on the left side. Will start Lasix 20 mg by mouth daily and patient was advised to keep her arm elevated above the heart level (4) Type 2 diabetes mellitus Status: Chronic (5) H/O non-insulin dependent diabetes mellitus Problem Text: FS glucose 172 upon admission shown on BMP. insulin sliding scale with FSBS AC/HS. Cont to monitor the pt. Decrease glipizide dose to 5 mg by mouth daily secondary to hypoglycemic event this morning and secondary to poor oral intake by patient Hemoglobin A1c is 8.4 (6) Hypertension Status: Chronic Problem Text: Hx of HTN. Cont home med Coreg. BP roughly stable 130/60. Patient also has been started on lisinopril 5 mg by mouth daily the by mouth daily. Control blood pressure and prevention of microalbuminuria secondary to diabetes mellitus Monitor vital signs (7) UTI (urinary tract infection) Status: Acute Problem Text: Patient urine culture shows Klebsiella Sensitive to Zosyn At the present antibiotics Plan/VTE VTE Prophylaxis Ordered?: Yes (pt on eliquis for PE) Plan Therapy: OT Diagnostics: Repeat Labs in AM Anticipated Discharge: [facility] VS[facility]&O, [facility] Vital Signs/I&O Vital Signs Date Time Temp Pulse Resp B/P (MAP) Pulse Ox O2 Delivery O2 Flow Rate FiO2 11/08/18 09:00 93 Nasal Cannula 11/08/18 08:04 60 160/70 11/08/18 06:00 97.8 18 1.0 I&O- Last 24 Hours up to 6 AM 11/08/18 06:00 Intake Total 1387 ml Output Total 0 ml Balance 1387 ml Laboratory Data 24H LABS Laboratory Tests 2 11/07/18 16:56: Bedside Glucose (Misc Panel) 66L 11/07/18 17:28: Bedside Glucose (Misc Panel) 113H 11/07/18 20:36: Bedside Glucose (Misc Panel) 167H 11/08/18 05:46: Nucleated Red Blood Cells % (auto) 0.0, Anion Gap 8, Glomerular Filtration Rate 54.1, Blood Urea Nitrogen 31H, Creatinine 1.03, Sodium Level 136, Potassium Level 4.4, Chloride Level 108H, Carbon Dioxide Level 20L, Calcium Level 8.1L 11/08/18 11:32: Bedside Glucose (Misc Panel) 121H CBC/BMP Laboratory Tests 11/08/18 05:46 Red Blood Count 4.33, Mean Corpuscular Volume 92.4, Mean Corpuscular Hemoglobin 27.7, Mean Corpuscular Hemoglobin Concent 30.0 L, Red Cell Distribution Width 18.6 H, Calcium Level 8.1 L Microbiology Microbiology 10/31/18 Blood Culture - Final, Complete NO GROWTH AFTER 5 DAYS 11/04/18 MRSA Screen - Final, Complete 11/06/18 Urine Culture - Final, Complete Klebsiella Oxytoca 10/31/18 Urine Culture - Final, Complete FAWAD MCINTYRE MD November 08, 2018 11:49
[2018-11-08] MEDS ORDERED: MOM 30ML SUSPENSION UDC PO PRN (12:00)
[2018-11-08] MEDS: MIRALAX *UNIT DOSE* 17GM PACKET PO SCH (12:30)
[2018-11-08] MEDS: DOCUSATE SODIUM 100 MG CAP PO SCH ×2 (12:31→21:26)
[2018-11-08 14:00] VITALS: BP 135/52
[2018-11-08] MEDS ORDERED: VANCOMYCIN HCL 1,000 MG, VIAL MATE ADAPTER 1 EACH in D5W 250 ML IV SCH (16:00)
[2018-11-08] MEDS: SIMVASTATIN 40 MG TAB PO SCH (21:24)
[2018-11-08 22:00] VITALS: BP 131/60
[2018-11-09] MEDS: PIPERACILLIN/TAZOBACTAM SOD 3.375 GM in D5W MINI-BAG PLUS 50 ML IV SCH ×2 (04:00→09:40)
[2018-11-09 06:00] VITALS: BP 162/69
[2018-11-09 06:19] LABS: HEMATOCRIT 37.4 % (36.0-47.0); HEMOGLOBIN 11.2 g/dl (12.0-15.5); MEAN CORPUSCULAR HEMOGLOBIN 27.7 pg (27.0-33.0); MEAN CORPUSCULAR HGB CONC 29.9 g/dl (32.0-36.5); MEAN CORPUSCULAR VOLUME 92.6 fl (80.0-96.0); PLATELET COUNT, AUTOMATED 214 10^3/uL (150-450); RED BLOOD COUNT 4.04 10^6/uL (4.00-5.40)
[2018-11-09 06:51] LABS: CALCIUM LEVEL 8.5 MG/DL (8.8-10.2); CREATININE FOR GFR 1.06 MG/DL (0.55-1.30); GLOMERULAR FILTRATION RATE 52.3 (>32); POTASSIUM SERUM 3.7 MEQ/L (3.5-5.1)
[2018-11-09] MEDS: SALMETEROL DISKUS 50MCG INHALER (SEREVENT) INH SCH (07:10)
[2018-11-09] MEDS: DOCUSATE SODIUM 100 MG CAP PO SCH ×2 (09:00→21:00)
[2018-11-09] MEDS: MIRALAX *UNIT DOSE* 17GM PACKET PO SCH (09:00)
[2018-11-09] MEDS: HumaLOG INSULIN (NovoLOG) PER UNIT SC SCH ×4 (09:40→21:00)
[2018-11-09] MEDS: VITAMIN D 1,000 INTERNATIONAL UNITS TABLET PO SCH (09:57)
[2018-11-09] MEDS: LISINOPRIL 5 MG TAB PO SCH (09:57)
[2018-11-09] MEDS: FUROSEMIDE 20 MG TAB PO SCH (09:57)
[2018-11-09] MEDS: APIXABAN 5 MG TAB (ELIQUIS) PO SCH ×2 (09:57→21:19)
[2018-11-09] MEDS: glipiZIDE XL 5 MG TABCR PO SCH (09:57)
[2018-11-09] MEDS: ASPIRIN 81 MG ENTERIC TAB PO SCH (09:57)
[2018-11-09] MEDS: SERTRALINE 100 MG TAB PO SCH ×2 (09:58→21:15)
[2018-11-09] MEDS: CARVedilol 12.5 MG TAB PO SCH ×2 (09:58→21:19)
[2018-11-09] MEDS: MAGNESIUM CHLORIDE 64 MG TABCR (SLO MAG) PO SCH ×2 (09:58→21:20)
[2018-11-09] MEDS ORDERED: SALMDISK INH (10:45)
[2018-11-09] MEDS ORDERED: LISI-542 PO (10:45)
[2018-11-09] MEDS ORDERED: ELIQ5TAB PO (10:45)
[2018-11-09] MEDS ORDERED: MOM30SS2 PO (10:45)
[2018-11-09] MEDS ORDERED: FURO20TA2 PO (10:45)
[2018-11-09] MEDS ORDERED: COLA100C5 PO (10:45)
[2018-11-09] MEDS ORDERED: PEG1POW PO (10:45)
[2018-11-09] MEDS ORDERED: GLIP5TAB20 PO (10:45)
[2018-11-09] MEDS ORDERED: CEFU50TA PO (11:13)
--- NOTE | 2018-11-09 13:21 | IPNPDOC ---
Subjective Date Seen The patient was seen on 11/09/18. Subjective Chief Complaint/HPI Patient offers no complaint. is at bedside General: Denies: ROS Unobtainable, Chills, Night Sweats, Fatigue, Malaise, Normal Appetite, Other Symptoms Constitutional: Denies: Chills, Fever, Malaise, Night Sweats, Weakness, Fatigue, Weight Loss, Lethargy, Other Eyes: Denies: Pain, Vision change, Conjunctivae inflammation, Eyelid inflammation, Redness, Other ENT: Denies: Head Aches, Ear Pain, Dysphagia, Sinus Congestion, Post Nasal Drip, Sore Throat, Epistaxis, Other Symptoms Skin: Denies: Rash, Lesions, Jaundice, Bruising, Itching, Dry, Breakdown, Nail Changes, Other Pulmonary: Denies: Dyspnea, Cough, Pleuritic Chest Pain, Other Symptoms Cardiovascular: Denies: Chest Pain, Palpitations, Orthopnea, Paroxysmal Noc. Dyspnea, Edema, Lt Headedness, Other Symptoms Gastrointestinal: Denies: Nausea, Vomiting, Abdominal Pain, Diarrhea, Constipation, Melena, Hematochezia, Other Symptoms Genitourinary: Denies: Dysuria, Frequency, Incontinence, Hematuria, Retention, Other Symptoms Hematologic: Denies: Bruising, Bleeding Excessively, Petecchia, Purpura, Enlarged Lymph Nodes, Other Hematologic Endocrine: Denies: Polydipsia, Polyphagia, Polyuria, Heat Intolerance, Cold Intolerance, Other Endocrine Sx Musculoskeletal: Denies: Neck Pain, Back Pain, Shoulder Pain, Arm Pain, Hand Pain, Leg Pain, Foot Pain, Joint Pain, Muscle Pain, Spasms, Other Symptoms Neurological: Denies: Weakness, Numbness, Incoordination, Change in speech, Confusion, Seizures, Other Symptoms Psych: Denies: Mood Normal, Anxiety, Depression, Memory Issues, Thoughts of Self Harm, Anger, Thoughts of Harming Other, Other Psych Objective Physical Examination General Exam: Positive: Alert, Cooperative, No Acute Distress Eye Exam: Positive: Conjunctiva & lids normal; Negative: Sclera icteric ENT Exam: Positive: Atraumatic, Mucous membr. moist/pink Neck Exam: Positive: Supple Chest Exam: Positive: Clear to auscultation, Normal air movement, Diminished (diminished lung sounds in upper lung lobes b/l when aus anteriorly); Negative: Rales, Rhonchi, Wheezing Heart Exam: Positive: Rate Normal, Normal S1, Normal S2, Other (right sided chest wall tenderness in anterior lower border) Abdomen Exam: Positive: Normal bowel sounds, Soft; Negative: Tenderness Skin Exam: Positive: Nl turgor and temperature Neuro Exam: Positive: Normal Speech, Cranial Nerves 3-12 NL, Other (Bilateral upper extremities +4/5; and bilateral lower extremities 5/5) Psych Exam: Positive: Mental status NL, Memory Intact, Oriented x 3 A-FIB/CHADSVASC A-FIB History Current/History of A-Fib/PAF?: No Current Oral Anticoagulant The: Yes Assessment /Plan Problems (1) Pneumonia Status: Chronic Problem Text: Possible hospital-acquired pneumonia on the left lower lobe Crackles audible on examination DC IV antibiotics , Ceftin 500 mg by mouth twice a day Transfer to subacute rehabilitation facility Oxygen support by 2 L nasal cannula Infection improves progressively Will follow CBC in a.m. (2) Pulmonary embolism Status: Acute Problem Text: Non-productive cough. Pt is sat well on RA with stable vital s igns; it was noted that pt has dyspnea but pt denies at the time of the examination. Pt reported extremity weakness and has been unable to walk since d/c home last time. CTA showed PE in right lower lobe. Will have the pt on Eliquis 10mg BID PO. Continue to observe the pt. Continuous pulse ox with oxygen therapy. Vital signs as scheduled. Duplex US in bilateral LE and echo ordered. As per patient's family and her . He is unable to take care of for discussed with the case management. Possibly patient will be transferred to subacute care facility was the bed is available PT, OT in progress Echocardiogram shows left ventricular hypertrophy with pacemaker wire but no other abnormalities Patient placed on oxygen supplementation with [address] chest with IV contrast has been requested to rule out any new hospital-acquired pneumonia or pulmonary congestion . As per Dr. Andrews. He spoke with patient's trigonometry tutor and decided that patient might require bronchoscopy before going back to subacute rehabilitation facility, Dr. Bran from pulmonary group as been called and discussed to Obtained a consult/clearance before patient goes to subacute care facility (3) Weakness of extremity Status: Acute Problem Text: Reported extremity weakness and was unable to walk since being d/c home from prior hospital visit. bilateral UE 4/5 strength with bilateral LE 5/5 strength. No other focal neurological signs, pt A&OX3 with CN2-12 fxn grossly intact. PT/OT ordered. Urine Cx and blood Cx pending. Patient does have a dependent edema on both upper extremities but mostly pronounced on the left side. Will start Lasix 20 mg by mouth daily and patient was advised to keep her arm elevated above the heart level (4) Type 2 diabetes mellitus Status: Chronic (5) H/O non-insulin dependent diabetes mellitus Problem Text: FS glucose 172 upon admission shown on BMP. insulin sliding scale with FSBS AC/HS. Cont to monitor the pt. Decrease glipizide dose to 5 mg by mouth daily secondary to hypoglycemic event this morning and secondary to poor oral intake by patient Hemoglobin A1c is 8.4 (6) Hypertension Status: Chronic Problem Text: Hx of HTN. Cont home med Coreg. BP roughly stable 130/60. Patient also has been started on lisinopril 5 mg by mouth daily the by mouth daily. Control blood pressure and prevention of microalbuminuria secondary to diabetes mellitus Monitor vital signs (7) UTI (urinary tract infection) Status: Acute Problem Text: Patient urine culture shows Klebsiella Sensitive to Zosyn At the present antibiotics Plan/VTE VTE Prophylaxis Ordered?: Yes (pt on eliquis for PE) Plan Therapy: OT Diagnostics: Repeat Labs in AM Anticipated [facility]charge[facility] Vital Signs/I&O Vital Signs Date Time Temp Pulse Resp B/P (MAP) Pulse Ox O2 Delivery O2 Flow Rate FiO2 11/09/18 10:03 97 11/09/18 09:58 60 162/69 11/09/18 06:00 96.8 18 1.0 11/08/18 09:00 Nasal Cannula I&O- Last 24 Hours up to 6 AM 11/09/18 06:00 Intake Total 1470 ml Output Total 0 ml Balance 1470 ml Laboratory Data 24H LABS Laboratory Tests 2 11/08/18 16:23: Bedside Glucose (Misc Panel) 101 11/08/18 21:17: Bedside Glucose (Misc Panel) 135H 11/09/18 05:39: Nucleated Red Blood Cells % (auto) 0.0, Anion Gap 6L, Glomerular Filtration Rate 52.3, Blood Urea Nitrogen 27H, Creatinine 1.06, Sodium Level 142, Potassium Level 3.7, Chloride Level 104, Carbon Dioxide Level 32, Calcium Level 8.5L 11/09/18 11:28: Bedside Glucose (Misc Panel) 220H CBC/BMP Laboratory Tests 11/09/18 05:39 Red Blood Count 4.04, Mean Corpuscular Volume 92.6, Mean Corpuscular Hemoglobin 27.7, Mean Corpuscular Hemoglobin Concent 29.9 L, Red Cell Distribution Width 18.4 H, Calcium Level 8.5 L Microbiology Microbiology 10/31/18 Blood Culture - Final, Complete NO GROWTH AFTER 5 DAYS 11/04/18 MRSA Screen - Final, Complete 11/06/18 Urine Culture - Final, Complete Klebsiella Oxytoca 10/31/18 Urine Culture - Final, Complete FAWAD MCINTYRE MD November 09, 2018 13:21
[2018-11-09 14:00] VITALS: BP 122/59
[2018-11-09 14:19] VITALS: O2SAT 92
[2018-11-09] MEDS: CEFUROXIME 500 MG TAB PO SCH (21:20)
[2018-11-09] MEDS: SIMVASTATIN 40 MG TAB PO SCH (21:20)
[2018-11-09 22:00] VITALS: BP 138/72
[2018-11-10 06:00] VITALS: BP 122/64
[2018-11-10 06:24] LABS: HEMATOCRIT 38.9 % (36.0-47.0); HEMOGLOBIN 11.9 g/dl (12.0-15.5); MEAN CORPUSCULAR HEMOGLOBIN 28.2 pg (27.0-33.0); MEAN CORPUSCULAR HGB CONC 30.6 g/dl (32.0-36.5); MEAN CORPUSCULAR VOLUME 92.2 fl (80.0-96.0); PLATELET COUNT, AUTOMATED 244 10^3/uL (150-450); RED BLOOD COUNT 4.22 10^6/uL (4.00-5.40); WHITE BLOOD COUNT 10.3 10^3/uL (4.0-10.0)
[2018-11-10 06:57] LABS: ALBUMIN 2.1 GM/DL (3.2-5.2); BILIRUBIN,TOTAL 0.6 MG/DL (0.2-1.0); CREATININE FOR GFR 1.06 MG/DL (0.55-1.30); GLOMERULAR FILTRATION RATE 52.3 (>32); TOTAL PROTEIN 5.9 GM/DL (6.4-8.2)
[2018-11-10] MEDS: MAGNESIUM CHLORIDE 64 MG TABCR (SLO MAG) PO SCH ×2 (08:40→22:21)
[2018-11-10] MEDS: SERTRALINE 100 MG TAB PO SCH ×2 (08:41→22:21)
[2018-11-10] MEDS: ASPIRIN 81 MG ENTERIC TAB PO SCH (08:41)
[2018-11-10] MEDS: APIXABAN 5 MG TAB (ELIQUIS) PO SCH ×2 (08:41→22:19)
[2018-11-10] MEDS: HumaLOG INSULIN (NovoLOG) PER UNIT SC SCH ×4 (08:41→21:00)
[2018-11-10] MEDS: CEFUROXIME 500 MG TAB PO SCH ×2 (08:42→22:21)
[2018-11-10] MEDS: CARVedilol 12.5 MG TAB PO SCH ×2 (08:42→22:20)
[2018-11-10] MEDS: FUROSEMIDE 20 MG TAB PO SCH (08:42)
[2018-11-10] MEDS: DOCUSATE SODIUM 100 MG CAP PO SCH ×2 (08:43→22:22)
[2018-11-10] MEDS: glipiZIDE XL 5 MG TABCR PO SCH (08:43)
[2018-11-10] MEDS: LISINOPRIL 5 MG TAB PO SCH (08:43)
[2018-11-10] MEDS: VITAMIN D 1,000 INTERNATIONAL UNITS TABLET PO SCH (08:43)
[2018-11-10] MEDS: MIRALAX *UNIT DOSE* 17GM PACKET PO SCH (08:44)
[2018-11-10] MEDS: SALMETEROL DISKUS 50MCG INHALER (SEREVENT) INH SCH (08:56)
[2018-11-10 09:00] VITALS: O2SAT 93
--- NOTE | 2018-11-10 11:25 | IPNPDOC ---
Subjective Date Seen The patient was seen on 11/10/18. Subjective Chief Complaint/HPI Patient sitting up eating her breakfast offers no new complaints General: Denies: ROS Unobtainable, Chills, Night Sweats, Fatigue, Malaise, Normal Appetite, Other Symptoms Constitutional: Denies: Chills, Fever, Malaise, Night Sweats, Weakness, Fatigue, Weight Loss, Lethargy, Other Eyes: Denies: Pain, Vision change, Conjunctivae inflammation, Eyelid inflammation, Redness, Other ENT: Denies: Head Aches, Ear Pain, Dysphagia, Sinus Congestion, Post Nasal Dr ip, Sore Throat, Epistaxis, Other Symptoms Skin: Denies: Rash, Lesions, Jaundice, Bruising, Itching, Dry, Breakdown, Nail Changes, Other Pulmonary: Denies: Dyspnea, Cough, Pleuritic Chest Pain, Other Symptoms Cardiovascular: Denies: Chest Pain, Palpitations, Orthopnea, Paroxysmal Noc. Dyspnea, Edema, Lt Headedness, Other Symptoms Gastrointestinal: Denies: Nausea, Vomiting, Abdominal Pain, Diarrhea, Constipation, Melena, Hematochezia, Other Symptoms Genitourinary: Denies: Dysuria, Frequency, Incontinence, Hematuria, Retention, Other Symptoms Hematologic: Denies: Bruising, Bleeding Excessively, Petecchia, Purpura, Enlarged Lymph Nodes, Other Hematologic Endocrine: Denies: Polydipsia, Polyphagia, Polyuria, Heat Intolerance, Cold Intolerance, Other Endocrine Sx Musculoskeletal: Denies: Neck Pain, Back Pain, Shoulder Pain, Arm Pain, Hand Pain, Leg Pain, Foot Pain, Joint Pain, Muscle Pain, Spasms, Other Symptoms Neurological: Denies: Weakness, Numbness, Incoordination, Change in speech, Confusion, Seizures, Other Symptoms Psych: Denies: Mood Normal, Anxiety, Depression, Memory Issues, Thoughts of Self Harm, Anger, Thoughts of Harming Other, Other Psych Objective Physical Examination General Exam: Positive: Alert, Cooperative, No Acute Distress Eye Exam: Positive: Conjunctiva & lids normal; Negative: Sclera icteric ENT Exam: Positive: Atraumatic, Mucous membr. moist/pink Neck Exam: Positive: Supple Chest Exam: Positive: Clear to auscultation, Normal air movement, Diminished (diminished lung sounds in upper lung lobes b/l when aus anteriorly); Negative: Rales, Rhonchi, Wheezing Heart Exam: Positive: Rate Normal, Normal S1, Normal S2, Other (right sided chest wall tenderness in anterior lower border) Abdomen Exam: Positive: Normal bowel sounds, Soft; Negative: Tenderness Skin Exam: Positive: Nl turgor and temperature Neuro Exam: Positive: Normal Speech, Cranial Nerves 3-12 NL, Other (Bilateral upper extremities +4/5; and bilateral lower extremities 5/5) Psych Exam: Positive: Mental status NL, Memory Intact, Oriented x 3 A-FIB/CHADSVASC A-FIB History Current/History of A-Fib/PAF?: No Current Oral Anticoagulant The: Yes Assessment /Plan Problems (1) Pneumonia Status: Chronic Problem Text: Possible hospital-acquired pneumonia on the left lower lobe Crackles audible on examination DC IV antibiotics Ceftin 500 mg by mouth twice a day Transfer to subacute rehabilitation facility Oxygen support by 2 L nasal cannula Patient was scheduled to be [facility] [place] [facility], but the director, once a pulmonary consult to be done and cleared by them before. The patient is [place] [facility] I discussed the case with Dr. Bran. She'll see patient today and give us her impressio Patient is ready for discharge from medical point of view (2) Pulmonary embolism Status: Acute Problem Text: Non-productive cough. Pt is sat well on RA with stable vital signs; it was noted that pt has dyspnea but pt denies at the time of the examination. Pt reported extremity weakness and has been unable to walk since d/c home last time. CTA showed PE in right lower lobe. Will have the pt on Eliquis 10mg BID PO. Continue to observe the pt. Continuous pulse ox with oxygen therapy. Vital signs as scheduled. Duplex US in bilateral LE and echo ordered. As per patient's family and her . He is unable to take care of for discussed with the case management. Possibly patient will be transferred to subacute care facility was the bed is available PT, OT in progress Echocardiogram shows left ventricular hypertrophy with pacemaker wire but no ot her abnormalities Patient placed on oxygen supplementation with [address] chest with IV contrast has been requested to rule out any new hospital-acquired pneumonia or pulmonary congestion . As per Dr. Andrews. He spoke with patient's doula and decided that patient might require bronchoscopy before going back to subacute rehabilitation facility, Dr. Bran from pulmonary group as been called and discussed to Obtained a consult/clearance before patient goes to subacute care facility (3) Weakness of extremity Status: Acute Problem Text: Reported extremity weakness and was unable to walk since being d/c home from prior hospital visit. bilateral UE 4/5 strength with bilateral LE 5/5 strength. No other focal neurological signs, pt A&OX3 with CN2-12 fxn grossly intact. PT/OT ordered. Urine Cx and blood Cx pending. Patient does have a dependent edema on both upper extremities but mostly pronounced on the left side. Will start Lasix 20 mg by mouth daily and patient was advised to keep her arm elevated above the heart level (4) Type 2 diabetes mellitus Status: Chronic (5) H/O non-insulin dependent diabetes mellitus Problem Text: FS glucose 172 upon admission shown on BMP. insulin sliding scale with FSBS AC/HS. Cont to monitor the pt. Decrease glipizide dose to 5 mg by mouth daily secondary to hypoglycemic event this morning and secondary to poor oral intake by patient Hemoglobin A1c is 8.4 (6) Hypertension Status: Chronic Problem Text: Hx of HTN. Cont home med Coreg. BP roughly stable 130/60. Patient also has been started on lisinopril 5 mg by mouth daily the by mouth daily. Control blood pressure and prevention of microalbuminuria secondary to diabetes mellitus Monitor vital signs (7) UTI (urinary tract infection) Status: Acute Problem Text: Patient urine culture shows Klebsiella Sensitive to Zosyn, continue Ceftin as per orders Plan/VTE VTE Prophylaxis Ordered?: Yes (pt on eliquis for PE) Plan Therapy: OT Diagnostics: Repeat Labs in AM Anticipated Discharge: Home VS, I&O, 24H, [facility] Vital Signs/I&O Vital Signs Date Time Temp Pulse Resp B/P (MAP) Pulse Ox O2 Delivery O2 Flow Rate FiO2 11/10/18 09:00 93 Nasal Cannula 11/10/18 08:42 70 125/65 11/10/18 06:00 98.4 16 11/09/18 06:00 1.0 I&O- Last 24 Hours up to 6 AM 11/10/18 05:59 Intake Total 990 ml Output Total 50 ml Balance 940 ml Laboratory Data 24H LABS Laboratory Tests 2 11/09/18 11:28: Bedside Glucose (Misc Panel) 220H 11/09/18 14:55: Vancomycin Level Trough 14.1 11/09/18 16:48: Bedside Glucose (Misc Panel) 100 11/09/18 20:27: Bedside Glucose (Misc Panel) 152H 11/10/18 05:38: Nucleated Red Blood Cells % (auto) 0.0, Anion Gap 6L, Glomerular Filtration Rate 52.3, Blood Urea Nitrogen 26H, Creatinine 1.06, Sodium Level 141, Potassium Level 4.0, Chloride Level 105, Carbon Dioxide Level 30, Calcium Level 9.0, Aspartate Amino Transf (AST/SGOT) 34, Alanine Aminotransferase (ALT/SGPT) 26, Alkaline Phosphatase 50, Total Bilirubin 0.6, Total Protein 5.9L, Albumin 2.1L, Albumin/Globulin Ratio 0.55L CBC/BMP Laboratory Tests 11/10/18 05:38 Red Blood Count 4.22, Mean Corpuscular Volume 92.2, Mean Corpuscular Hemoglobin 28.2, Mean Corpuscular Hemoglobin Concent 30.6 L, Red Cell Distribution Width 18.6 H, Calcium Level 9.0, Aspartate Amino Transf (AST/SGOT) 34, Alanine Aminotransferase (ALT/SGPT) 26, Alkaline Phosphatase 50, Total Bilirubin 0.6, Total Protein 5.9 L, Albumin 2.1 L Microbiology Microbiology 10/31/18 Blood Culture - Final, Complete NO GROWTH AFTER 5 DAYS 11/04/18 MRSA Screen - Final, Complete 11/06/18 Urine Culture - Final, Complete Klebsiella Oxytoca 10/31/18 Urine Culture - Final, Complete FAWAD MCINTYRE MD November 10, 2018 11:25
[2018-11-10] MEDS ORDERED: SODIUM CHLORIDE HYPERTONIC 3% 15ML NEB SOL INH ONE (13:00)
--- NOTE | 2018-11-10 13:57 | REP ---
Duplex extremity venous ultrasound: Lower extremity. History: Unilateral left leg swelling. Question DVT. Findings: The deep veins are anechoic and fully compressible from the groin to the popliteal fossa in the left lower extremity. Color flow imaging is homogeneous. Spectral Doppler interrogation demonstrates intact respiratory variation in flow and normal manual augmentation of flow. There is no evidence of deep vein thrombosis. Impression: Negative left lower extremity duplex venous ultrasound. No evidence of deep vein thrombosis. Electronically Signed by Piero Gomez MD 11/10/2018 12:41 P
[2018-11-10 14:00] VITALS: BP 130/60
--- NOTE | 2018-11-10 16:07 | CR ---
DATE OF CONSULTATION: 11/10/[address] Pond to evaluate Mrs. Figueroa for abnormal chest CT scan. HISTORY OF PRESENT ILLNESS: Mrs. 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 She is followed by Dr. Devi as an outpatient. Her recent difficulties began toward the end of August. She was seen on 09/19/[address] Devi for an acute exacerbation of her bronchiectasis. At that time, she had a temperature of 100 and had increased shortness of breath, cough and was complaining of upper abdominal tightness. She also was using accessory muscles. She had been at "numerous funerals" over the weekend prior to that visit. She was treated with Levaquin as well as a prednisone taper that was over 20 days. Influenza A and B titers were obtained. Those titers were negative. She next appeared in the emergency department in September, which per the admission note was for shortness of breath, weakness and cough. At that time she tested positive for influenza A and she was placed on Tamiflu. She was also kept on corticoid steroids throughout hospitalization, which ran from 10/01/2018 through 10/07/2018. During her hospitalization, she had, had a chest x-ray done, which had commented on pulmonary nodules. I suspect she had not had a CT scan done here (I know she had some at [facility] and the nodules were known) or perhaps because she had not had one in a long time, but for whatever reason a chest CT scan was ordered close to when she was to be discharged with the reason being possible nodules. Not unexpectedly it had shown the known nodules, but she had a finding in the left lower lobe that was read by radiology as having findings compatible with cryptogenic organizing pneumonia. That was interpreted by the providers as being a pneumonia and even though there were no clinical symptoms of a bacterial infection she was started on broad-spectrum antibiotics at that time and discharged 2 days later. This also occurred while on treatment for cryptogenic organizing pneumonia, steroids. The antibiotics that she was discharged on were azithromycin and cefdinir, I believe for an additional 5 days. She was discharged home with home services. Unfortunately, per the family, a nurse did not come for 2 weeks and then it was an additional 2 weeks before physical therapy (PT) was going to come work with her. Her was not able to help her very much and she basically did no activity. She was then brought to the hospital on 11/01/2018 with generalized weakness. Her family thought that she may have had worsen dyspnea on exertion though she did not specifically complain of that. She had a nonproductive cough. She had not walked since discharge. In the emergency department, a CT pulmonary angiogram was done, which showed a pulmonary embolism. It also showed worsening of the left lower lobe process, but again, now it has been a month and we do not know what it would have appeared like had she had the CT done midway. I was verbally told that she was admitted to start on anticoagulation but the plan also was for three hospital nights so that she would be eligible to go to subacute rehabilitation. Since she has been here, she has been on various systemic antibiotics for brief periods of time including ceftriaxone, vancomycin, tobramycin, and Zosyn. All the intravenous antibiotics have been discontinued as of the 11/08/2018. On 11/09/2018, she was started on Ceftin. She was to go to the half-way on Wednesday, but did not go because she was on oxygen though she had been on room and she was on 1 liter then with a saturation of 99% and I cannot find out why she was transiently started on oxygen but that was discontinued. She was scheduled to go to the half-way yesterday and that was cancelled because Dr. Avila was concerned about her chest CT scan. Dr. Devi was then contacted as her outpatient media developer who appropriately deferred the consultation to the on service media developer. Today when I see her, she is sitting a chair. She notes some dyspnea on exertion noting that she has to stop sooner when she was walking with a walker than she did a month ago. At rest, she denies any shortness of breath. She has no significant cough and has not had a productive cough since she was admitted. No chest pain or pressure. No paroxysmal nocturnal dyspnea (PND) or orthopnea. She has had lower extremity edema, for which she was started on low dose oral Lasix a couple of days ago, and her believes is significantly improved. No gastroesophageal reflux disease (GERD) symptoms. Her biggest complaint is bloating and a feeling of fullness, which she feels contributes to her dyspnea on exertion. Her daughter, to whom I spoke notes that her mother has had diarrhea. Ms. Figueroa is working with in house PT. ALLERGIES: NO KNOWN DRUG ALLERGIES. CURRENT MEDICATIONS: - albuterol metered-dose inhaler (MDI) 2 puffs every 4 hours as needed - albuterol nebulizations 1 nebulization four times a day as needed - Eliquis 10 mg by mouth twice a day - aspirin 81 mg by mouth every day - Coreg 18.75 mg by mouth twice a day - Ceftin 500 mg by mouth twice a day - Colace 100 mg by mouth twice a day - Lasix 20 mg by mouth every day - Glucotrol 5 mg by mouth every day - insulin sliding scale - lisinopril 5 mg by mouth every day - Ativan 0.25 mg by mouth three times a day, anxiety - Slow-Mag 64 mg by mouth twice a day - Milk of Magnesia 30 mg by mouth every day as needed - MiraLAX one packet by mouth every day - Serevent Diskus 1 puff daily - sertraline 50 mg by mouth twice a day - simvastatin 40 mg by mouth every evening - vitamin D 2000 units by mouth every day PAST MEDICAL HISTORY: 1. Bronchiectasis. 2. COPD, severe/very severe with an FEV1 ranging from 24-36%. 3. 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 4. History of histoplasmosis related pulmonary nodules, status post resection 2000. 5. History of colonic malignancy, status post low anterior resection 2001. 6. Status post cholecystectomy. 7. Hyperglycemia. 8. Depression. 9. Diabetes mellitus. 10. Anxiety. 11. MAC per hospital chart. 12. 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 SOCIAL HISTORY: Mrs. Figueroa is a lifelong nonsmoker. She does not chew tobacco. Rare alcohol usage. No street drug usage. She lives with her . No pets or animals in the household. No known exposure to pulmonary toxins such as dust, fumes, chemicals or asbestos. She is retired from [employer] and worked for [employer]. FAMILY HISTORY: There is no family history of lung disease. REVIEW OF SYSTEMS: Per HPI. Remainder of pertinent review of systems are negative. PHYSICAL EXAMINATION: GENERAL: Mrs. Figueroa is sitting in a chair in no acute distress. She can complete full sentences. No cough during the evaluation. She feels very comfortable. VITAL SIGNS: Temperature 98.4, which is her maximum temperature (Tmax), respiratory rate 15-16, pulse 70, blood pressure 125/65, SpO2 93% on room air. HEENT: Anicteric. Nares: Patent bilaterally, moist mucosa. Oropharynx: Clear, no lesions, no evidence of drainage in the posterior pharynx, good dentition. NECK: Supple, without thyromegaly or masses, trachea is midline. LYMPHATICS: No cervical or supraclavicular lymphadenopathy. CHEST: Mild kyphosis. LUNGS: Symmetric excursion, good air entry. There are crackles on the left approximately half the way up and also anteriorly. There are crackles on the right at a lower level over the bottom third and not very anteriorly. No rhonchi. No wheezing. Prolonged expiratory phase. No accessory muscle usage or retractions. Normal percussion and palpation. CARDIOVASCULAR: Regular rate and rhythm with normal S1, S2, and perhaps 1-2 systolic murmur heard along the left lower sternal border. No rub or gallop. ABDOMEN: Positive bowel sounds. Soft. Mild generalized tenderness. No rebound or guarding. No hepatosplenomegaly or masses appreciated, and suboptimal examination done predominantly when she was sitting in the chair. EXTREMITIES: 1+ pretibial edema on the left with no pretibial edema on the right. Trace to 1+ pedal edema on the right and 1+ on the left. Without clubbing or cyanosis. NEUROLOGIC: Alert, awake and oriented times three. PSYCHIATRIC: Affect appears appropriate. LABORATORY DATA: Chemistries today show sodium 141, potassium 4.0, chloride 105, bicarbonate 30, anion gap 6, BUN 26, creatinine 1.0, glucose 126, calcium 9.0, total bilirubin 0.6, AST 34, ALT 26, alkaline phosphatase 50, total protein 5.9, and albumin 2.1. CBC shows a hemoglobin of 11.9, hematocrit 38.9, platelet count 244,000, white blood cell count 10,300. Yesterday's white blood cell count was 10,000. Arterial blood gas on 10/31/2018, on admission was 7.43/43/65 with a measured saturation 92% and a base excess of 3. I do not know how much that oxygen was drawn. Admission INR was 1.17. I reviewed multiple chest CT scans including those from 10/04/2018, 11/01/2018, and 11/07/2018. All CT scans showed borderline to slightly enlarge cardiac silhouette, normal appearing pulmonary vascular shadows. There is mild mediastinal lymphadenopathy. There are bilateral pulmonary nodules that are most predominant in the right middle lobe but also involved the upper lobes and lower lobes, and from my view are unchanged dating back to September with the exception of possibly a few more in the right lower lobe. There is scattered scar. Left lower lobe findings have progressed between September and October and are more consolidative at this time. There is no change per my view in this finding between the two October CT scans. There was a small left pleural effusion on her initial scan and now there is a small right pleural effusion with slight increase in the effusion on the left. She has a right lower lobe pulmonary embolus on her admission CT pulmonary angiogram. IMPRESSION: 1. Abnormal chest CT scan with multiple findings. Most of the pulmonary nodules are old and date back to at least March. Differential would include inspissated secretions (she does have bronchiectasis), histoplasmosis, another granulose process, metastatic disease, or other. What would argue against the latter is that these findings have been present since at least March and she has no systemic signs of malignancy and they have had, for the most part, an upper lobe predominance which is not typical for a metastatic process. She has a more consolidative left lower lobe process that was likely new in September and has progressed. This is most likely a pneumonic process though she has had been treated for it. Again, we do not know what it would have appeared like in mid September to know where her kristen was and whether this is truly a progression from September or rather more of a static picture when she came in October as it can take a long time for x-rays to clear. While the findings are what could be considered consistent with a cryptococci organizing pneumonia her history is not and it occurred while she was on corticosteroids making it very unlikely. 2. Bronchiectasis involving all lobes. 3. Chronic obstructive pulmonary disease, severe/very severe secondary to bronchiectasis. 4. Bilateral small pleural effusion, I suspect that she is volume overload. It was difficult to follow her intake and output because of incontinence. Based on what we do have she is over 7 liters ahead. I do not expect that she is that far ahead but I do suspect that she is somewhat fluid up. 5. Asymmetric lower extremity edema. 6. Pulmonary embolism on admission. 7. Deconditioning. Based on her history it sounds as if she has chronic deconditioning as she markedly altered her activity level after a pacemaker was placed 11 or 12 years ago and now as acute deconditioning related to her recent hospitalization in September and then beginning discharged home and not walking for the next month. 8. History of histoplasmosis nodules. 9. Possibly history of mycobacterium avium complex. 10. Remote history of colon cancer. RECOMMENDATIONS: 1. I do not feel at this point that she needs any further antibiotics as she was on pretty broad-spectrum antibiotics when discharged at the end of September. 2. I do not find any signs suggestive of bronchiectatic exacerbation. 3. Will send procalcitonin, although even if it is positive I would not recommend any further antibiotics. If is negative, it is supporting evidence to stop the antibiotics. 4. Will send a fungitell. Again, if it is positive I would not pursue further evaluation for histoplasmosis or other fungus. It would be most beneficial if it is negative, in which case will essentially exclude an active histoplasmosis infection. 5. Even if this is metastatic disease, I would not work it up any further as she is not a suitable candidate for any significant intervention. This is also in agreement with what her daughter, who is her healthcare proxy, feels that she would want. In fact, her daughter is adamant that she have no further procedures. 6. I do not feel a procedure to obtain tissue is indicated at this time for multiple reasons predominantly being that any information is not likely to be acted upon and therefore, it would be all risk and no benefit. 7. I do recommend a left lower extremity Doppler given the asymmetric edema. If it is positive and as this has occurred on anticoagulation, I would recommend a filter. 8. I would recommend an extra oral dose of diuretic as I suspect she is still fluid up and would benefit from that, though I do not feel she needs significant diuresis. 9. As noted, I have spoken at length with her daughter regarding my findings and her daughter also expressed her concerns. Both of us feel that she needs to go on to the half-way for subacute physical therapy as her biggest need at this point is treatment for her weakness so that she can go home to her family, which is want her overall primary wish is. 10. I have also spoken regarding the above with Dr. Pond. MIRELLA
[2018-11-10 22:00] VITALS: BP 159/70
[2018-11-10] MEDS: SIMVASTATIN 40 MG TAB PO SCH (22:21)
[2018-11-11 06:00] VITALS: BP 149/67
[2018-11-11] MEDS: HumaLOG INSULIN (NovoLOG) PER UNIT SC SCH ×2 (07:30→12:35)
[2018-11-11] MEDS: SALMETEROL DISKUS 50MCG INHALER (SEREVENT) INH SCH (08:08)
[2018-11-11] MEDS: MAGNESIUM CHLORIDE 64 MG TABCR (SLO MAG) PO SCH (08:34)
[2018-11-11 08:35] VITALS: BP 149/67
[2018-11-11] MEDS: FUROSEMIDE 20 MG TAB PO SCH (08:35)
[2018-11-11] MEDS: VITAMIN D 1,000 INTERNATIONAL UNITS TABLET PO SCH (08:35)
[2018-11-11] MEDS: glipiZIDE XL 5 MG TABCR PO SCH (08:35)
[2018-11-11] MEDS: LISINOPRIL 5 MG TAB PO SCH (08:35)
[2018-11-11] MEDS: CEFUROXIME 500 MG TAB PO SCH (08:35)
[2018-11-11] MEDS: CARVedilol 12.5 MG TAB PO SCH (08:36)
[2018-11-11] MEDS: DOCUSATE SODIUM 100 MG CAP PO SCH (08:36)
[2018-11-11] MEDS: APIXABAN 5 MG TAB (ELIQUIS) PO SCH (08:36)
[2018-11-11] MEDS: ASPIRIN 81 MG ENTERIC TAB PO SCH (08:36)
[2018-11-11] MEDS: MIRALAX *UNIT DOSE* 17GM PACKET PO SCH (08:37)
[2018-11-11] MEDS: SERTRALINE 100 MG TAB PO SCH (08:38)
--- NOTE | 2018-11-11 13:04 | DS.PDOC ---
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 LEMA DISCHARGE DIAGNOSES: PULMONARY EMBOLISM ON ADMISSION HCAP UTI ON ADMISSION PULMONARY NODULES HTN DM2 DISCHARGE MEDS: PLS SEE BELOW HISTORY OF PRESENTING ILLNESS: HOSPITAL COURSE: HCAP left lower lobe S/P IV antibiotics Ceftin 500 mg by mouth twice a day Transfer to subacute rehabilitation facility Oxygen support by 2 L nasal cannula. Pulmonary embolism Non-productive cough. Pt is sat well on RA with stable vital signs; it was noted that pt has dyspnea but pt denies at the time of the examination. Pt re ported extremity weakness and has been unable to walk since d/c home last time. CTA showed PE in right lower lobe. Will have the pt on Eliquis 10mg BID PO. Continue to observe the pt. Continuous pulse ox with oxygen therapy. Vital signs as scheduled. Duplex US in bilateral LE and echo ordered. As per patient's family and her . He is unable to take care of for discussed with the case management. Possibly patient will be transferred to subacute care facility was the bed is available PT, OT in progress Echocardiogram shows left ventricular hypertrophy with pacemaker wire but no other abnormalities Patient placed on oxygen supplementation with [address] chest with IV contrast has been requested to rule out any new hospital-acquired pneumonia or pulmonary congestion . As per Dr. Andrews. 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 Lema from pulmonary group as been called and discussed to Obtained a consult/clearance before patient goes to subacute care facility Weakness of extremity Reported extremity weakness and was unable to walk since being d/c home from prior hospital visit. bilateral UE 4/5 strength with bilateral LE 5/5 strength. No other focal neurological signs, pt A&OX3 with CN2-12 fxn grossly intact. PT/OT ordered. Patient does have a dependent edema on both upper extremities but mostly pronounced on the left side. Lasix 20 mg by mouth daily and patient was advised to keep her arm elevated above the heart level Type 2 diabetes mellitus H/O non-insulin dependent diabetes mellitus Problem Text: FS glucose 172 upon admission shown on BMP. insulin sliding scale with FSBS AC/HS. Cont to monitor the pt. Decrease glipizide dose to 5 mg by mouth daily secondary to hypoglycemic event this morning and secondary to poor oral intake by patient Hemoglobin A1c is 8.4 Hypertension Hx of HTN. Cont home med Coreg. BP roughly stable 130/60. Patient also has been started on lisinopril 5 mg by mouth daily the by mouth daily. Control blood pressure and prevention of microalbuminuria secondary to diabetes mellitus Monitor vital signs UTI (urinary tract infection) Patient urine culture shows Klebsiella Sensitive to Zosyn, continue Ceftin as per orders Pulmonary Nodules Per Dr. Lema no need for bronchoscopy, or inpatient workup. fu at hospital discharge. DISCHARGE PHYSICAL EXAMINATION: VITALS: PLS SEE BELOW General Exam: Positive: Alert, Cooperative, No Acute Distress Eye Exam: Positive: Conjunctiva & lids normal; Negative: Sclera icteric ENT Exam: Positive: Atraumatic, Mucous membr. moist/pink Neck Exam: Positive: Supple Chest Exam: Positive: Clear to auscultation, Normal air movement, Diminished (diminished lung sounds in upper lung lobes b/l when aus anteriorly); Negative: Rales, Rhonchi, Wheezing Heart Exam: Positive: Rate Normal, Normal S1, Normal S2, Other (right sided chest wall tenderness in anterior lower border) Abdomen Exam: Positive: Normal bowel sounds, Soft; Negative: Tenderness Skin Exam: Positive: Nl turgor and temperature Neuro Exam: Positive: Normal Speech, Cranial Nerves 3-12 NL, Other (Bilateral upper extremities +4/5; and bilateral lower extremities 5/5) Psych Exam: Positive: Mental status NL, Memory Intact, Oriented x 3 DISCHARGE LABS, MICROBIOLOGY, IMAGING STUDIES: PLS SEE BELOW TIME SPENT ON HOSPITAL DISCHARGE: 35 MIN Vital Signs/I&Os Vital Signs Date Time Temp Pulse Resp B/P (MAP) Pulse Ox O2 Delivery O2 Flow Rate FiO2 11/11/18 08:35 149/67 11/11/18 06:00 97.4 62 17 92 11/10/18 09:00 Nasal Cannula 11/09/18 06:00 1.0 I&O- Last 24 Hours up to 6 AM 11/11/18 06:00 Intake Total 1060 ml Output Total 0 ml Balance 1060 ml Laboratory Data Labs 24H Laboratory Tests 2 11/10/18 16:33: Bedside Glucose (Misc Panel) 110 11/10/18 19:29: Bedside Glucose (Misc Panel) 138H 11/11/18 05:42: Bedside Glucose (Misc Panel) 103 11/11/18 11:39: Bedside Glucose (Misc Panel) 121H FSBS Laboratory Tests Test 11/10/18 16:33 11/10/18 19:29 11/11/18 05:42 11/11/18 11:39 Range/Units Bedside Glucose (Misc Panel) 110 138 103 121 83-110 MG/DL Microbiology Microbiology 11/04/18 MRSA Screen - Final, Complete 11/06/18 Urine Culture - Final, Complete Klebsiella Oxytoca Discharge Medications Scheduled Apixaban (Eliquis) 5 Mg Tablet, 10 MG PO BID Aspirin (Aspirin EC) 81 Mg Tab, 81 MG PO DAILY, (Reported) Carvedilol (Carvedilol) 12.5 Mg Tab, 18.75 MG PO BID, (Reported) Cefuroxime Axetil (Cefuroxime) 500 Mg Tablet, 500 MG PO BID Cholecalciferol (Vitamin D3) (Vitamin D3) 1,000 Unit Tablet, 2,000 UNIT PO DAILY, (Reported) Docusate Sodium (Colace) 100 Mg Capsule, 100 MG PO BID Furosemide (Furosemide) 20 Mg Tablet, 20 MG PO DAILY Glipizide (Glipizide ER) 5 Mg Tab.er.24, 5 MG PO DAILY Lisinopril (Lisinopril) 5 Mg Tablet, 5 MG PO DAILY Magnesium Chloride (Mag64) 64 Mg Tablet.dr, 64 MG PO BID, (Reported) Polyethylene Glycol 3350 (Polyethylene Glycol 3350) 17 Gm Powd.pack, 1 PKT PO DAILY Salmeterol (Serevent Diskus) 50 Mcg Blst.w.dev, 1 PUFF INH DAILY Sertraline HCl (Sertraline HCl) 100 Mg Tab, 50 MG PO BID, (Reported) Simvastatin (Simvastatin) 40 Mg Tab, 40 MG PO QPM, (Reported) TAKES AT DINNERTIME Scheduled PRN Albuterol Sulf (Albuterol Sulfate) 2.5 Mg/3 Ml Vial.neb, 2.5 MG INH QID PRN for SHORTNESS OF BREATH, (Reported) Albuterol Sulfate (Proair Hfa) 8.5 Gm Hfa.aer.ad, 2 PUFF INH Q4H PRN for SHORTNESS OF BREATH, (Reported) Magnesium Hydroxide (Milk of Magnesia) 400 Mg/5 Ml Oral.susp, 30 ML PO DAILYPRN PRN for CONSTIPATION Allergies Coded Allergies: No Known Allergies (Verified , 10/31/18) XAVIER SCRUGGS MD November 11, 2018 13:04
== END 2018-11-11 13:37 | DRG 175 ==
LOC: M ED 20:41 → M ED INP 20:42 → M MSPAV 11-01 13:49 → INTOOBSV 11-02 10:26 → OBSVTOIN 11-02 10:26
PROVIDERS: ADMIT Internal Medicine; ATTEND General Practice
DX: I26.99 Other pulmonary embolism without acute cor pulmonale (principal); J18.9 Pneumonia, unspecified organism; N39.0 Urinary tract infection, site not specified; R91.8 Other nonspecific abnormal finding of lung field; E11.9 Type 2 diabetes mellitus without complications; I10 Essential (primary) hypertension; Z79.82 Long term (current) use of aspirin; Z79.899 Other long term (current) drug therapy; Z85.048 Personal history of other malignant neoplasm of rectum, rectosigmoid junction, and anus; Z95.0 Presence of cardiac pacemaker; J44.9 Chronic obstructive pulmonary disease, unspecified

== ENCOUNTER → 2018-11-14 | Outpatient (REF) ==
[~2018-11-14] MED LIST changes: +ACET-907 PO; +ALBU83IN INH; +ATIV1TAB10 PO; +CEFU50TA PO; +COLA100C5 PO; +D-10TAB2 PO; +DULC10SU2 PR; +ELIQ5TAB PO; +GLIP1TAB11 PO; +GLIP5TAB20 PO; +GLUC1LIQ7 PO; +HM S0.65; +K-TA10TA PO; +LISI-542 PO; +MAGN64TASA PO; +MILKSUS21 PO; +MOM30SS2 PO; +PEG1POW PO; +PROAAER10 INH; +SALMDISK INH; +STOO100C PO; +VITA-144 PO
[2018-11-14 15:58] LABS: HEMATOCRIT 38.1 % (36.0-47.0); HEMOGLOBIN 11.4 g/dl (12.0-15.5); MEAN CORPUSCULAR HEMOGLOBIN 27.8 pg (27.0-33.0); MEAN CORPUSCULAR HGB CONC 29.9 g/dl (32.0-36.5); MEAN CORPUSCULAR VOLUME 92.9 fl (80.0-96.0); PLATELET COUNT, AUTOMATED 198 10^3/uL (150-450); WHITE BLOOD COUNT 8.7 10^3/uL (4.0-10.0)
[2018-11-14 16:13] LABS: AMORPHOUS SEDIMENT SMALL (NEGATIVE); APPEARANCE, URINE CLEAR (CLEAR); BACTERIA, URINE AUTO NEGATIVE (NEGATIVE); BILIRUBIN, URINE AUTO NEGATIVE (NEGATIVE); BLOOD, URINE BLOOD NEGATIVE (NEGATIVE); COLOR, URINE YELLOW (YELLOW); GLUCOSE, URINE (UA) AUTO NEGATIVE (NEGATIVE); KETONE, URINE AUTO NEGATIVE (NEGATIVE); LEUKOCYTE ESTERASE, URINE AUTO NEGATIVE (NEGATIVE); MUCUS, URINE SMALL (NEGATIVE); NITRITE, URINE AUTO NEGATIVE (NEGATIVE); PROTEIN, URINE AUTO 1+ mg/dL (NEGATIVE); RBC, URINE AUTO 3 /HPF (0-3); SPECIFIC GRAVITY URINE AUTO 1.014 (1.002-1.035); SQUAMOUS EPITHELIAL CELL UR AU 1 /HPF (0-6); UROBILINOGEN, URINE AUTO 0.2 mg/dL (0.0-2.0); WBC, URINE AUTO 1 /HPF (0-3)
--- NOTE | 2018-11-14 16:44 | REP ---
KUB ABDOMEN AND PELVIS: Two KUB films of the abdomen and pelvis are performed. No dilated small bowel loops are seen, with no evidence of small bowel obstruction. Multiple metallic clips are seen throughout the abdomen and pelvis. There is scattered vascular calcifications also seen in the abdomen and pelvis. There are degenerative changes of the spine and hips. IMPRESSION: No evidence of bowel obstruction. Electronically Signed by Angel Domínguez MD 11/14/2018 07:52 P
[2018-11-14 19:28] LABS: CALCIUM LEVEL 8.9 MG/DL (8.8-10.2); CREATININE FOR GFR 1.15 MG/DL (0.55-1.30); GLOMERULAR FILTRATION RATE 47.6 (>32); POTASSIUM SERUM 3.3 MEQ/L (3.5-5.1)
== END ==
LOC: SKLAB3 15:13
DX: R06.02 Shortness of breath (principal); R10.84 Generalized abdominal pain

== ENCOUNTER 2018-11-16 13:31 | Inpatient (IN) | payer MEDICARE ==
[~2018-11-16] VITALS: Ht 160 cm; Wt 61.8 kg
[~2018-11-16 13:31] MED LIST changes: -ACET-907 PO; -ATIV1TAB10 PO; -D-10TAB2 PO; -DULC10SU2 PR; -GLUC1LIQ7 PO; -HM S0.65; -K-TA10TA PO; -MILKSUS21 PO; -STOO100C PO
[2018-11-16 15:50] LABS: BASO % 0.3 % (0.0-1.0); EOS # 0.1 10^3/uL (0.0-0.50); HEMATOCRIT 40.9 % (36.0-47.0); HEMOGLOBIN 11.8 g/dl (12.0-15.5); LYMPH % 3.3 % (24.0-44.0); MEAN CORPUSCULAR HGB CONC 28.9 g/dl (32.0-36.5); MEAN CORPUSCULAR VOLUME 97.1 fl (80.0-96.0); MONO # 0.4 10^3/uL (0.0-0.8); MONO % 5.6 % (0.0-5.0); NEUTROPHILS # 7.1 10^3/uL (1.8-7.7); NEUTROPHILS % 88.9 % (36.0-66.0); PLATELET COUNT, AUTOMATED 210 10^3/uL (150-450); RED BLOOD COUNT 4.21 10^6/uL (4.00-5.40); WHITE BLOOD COUNT 7.9 10^3/uL (4.0-10.0)
[2018-11-16] MEDS ORDERED: K-TA10TA PO (15:52)
[2018-11-16] MEDS ORDERED: STOO100C PO (15:52)
[2018-11-16] MEDS ORDERED: GLUC1LIQ7 PO (15:52)
[2018-11-16] MEDS ORDERED: ANOR1AER INH (15:52)
[2018-11-16] MEDS ORDERED: ATIV1TAB10 PO (15:52)
[2018-11-16] MEDS ORDERED: ACET-907 PO (15:52)
[2018-11-16] MEDS ORDERED: MILKSUS21 PO (15:52)
[2018-11-16] MEDS ORDERED: D-10TAB2 PO (15:52)
[2018-11-16] MEDS ORDERED: DULC10SU2 PR ×2 (15:52→15:57)
[2018-11-16] MEDS ORDERED: ELIQ5TAB PO (15:52)
[2018-11-16] MEDS ORDERED: HM S0.65 (15:52)
[2018-11-16 16:02] LABS: INR 1.56; PROTHROMBIN TIME 18.9 SECONDS (12.1-14.4)
[2018-11-16 16:06] LABS: LYMPH # 0.3 10^3/uL (1.5-4.5)
--- NOTE | 2018-11-16 16:12 | REP ---
Clinical: Cough and dyspnea. Technique: PA and lateral. Comparison: 11/04/2018. Findings: Moderate left lower lobe consolidation appears increased from prior examination. Underlying chronic interstitial changes remain stable. No pneumothorax. Mediastinum and cardiac silhouette stable. Skeletal structures intact. Impression: Moderate left lower lobe consolidation slightly increased from prior examination. Electronically Signed by Marcel Ruby MD 11/16/2018 04:03 P
[2018-11-16 16:26] LABS: ALBUMIN 2.4 GM/DL (3.2-5.2); BILIRUBIN,DIRECT 0.2 MG/DL (0.0-0.2); BILIRUBIN,TOTAL 0.6 MG/DL (0.2-1.0); CALCIUM LEVEL 9.6 MG/DL (8.8-10.2); CREATININE FOR GFR 1.06 MG/DL (0.55-1.30); GLOMERULAR FILTRATION RATE 52.3 (>32); MB/CK RELATIVE INDEX 8.89 (< OR =4); POTASSIUM SERUM 3.7 MEQ/L (3.5-5.1); THYROID STIMULATING HORMONE 1.77 uIU/ML (0.358-3.740); TOTAL PROTEIN 6.9 GM/DL (6.4-8.2); TROPONIN I 0.28 NG/ML (< 0.10)
[2018-11-16] MEDS ORDERED: ISOVUE-370 76% 100ML VIAL (Q9967) As Ordered ONE (18:04)
--- NOTE | 2018-11-16 18:36 | REP ---
Clinical: Chest pain. Pneumonia. Technique: Axial contrast enhanced images from the thoracic inlet to the upper abdomen with coronal and sagittal re-formations. 100 ml Isovue 370 intravenous contrast material was administered without complication. Comparison: 11/24/2018. Findings: Moderate left lower lobe consolidation along with mild lingular and minimal right lower lobe atelectasis/consolidations consistent with multifocal pneumonia. Diffuse chronic interstitial changes are appreciated along with innumerable scattered bilateral pulmonary nodules most compatible with metastatic disease. Overall findings may be slightly increased when compared to 11/07/2018. No significant effusion. No pneumothorax. Tracheobronchial tree is grossly patent. Atherosclerotic changes to the thoracic aorta and coronary arteries noted without aortic aneurysm or dissection. No cardiomegaly or pericardial effusion. Surrounding musculoskeletal structures demonstrate age-related degenerative changes without focal osseous abnormality. Impression: 1. Areas of consolidation primarily involving the left lower lobe, lingula and posterior right lower lobe may be slightly increased from prior examination. 2. Innumerable bilateral pulmonary nodules again noted and consistent with metastatic disease. Electronically Signed by Marcel Ruby MD 11/16/2018 06:28 P
[2018-11-16 18:40] LABS: VENOUS HCO3 40.7 MEQ/L (23.0-27.0); VENOUS O2 SATURATION 97.7 % (60.0-80.0); VENOUS PARTIAL PRESSURE CO2 69.2 mmHg (38.0-50.0); VENOUS PH 7.387 UNITS (7.330-7.430); VENOUS STANDARD HCO3 36.7 MEQ/L; VENOUS TOTAL CO2 42.8 MEQ/L (24.0-28.0)
--- NOTE | 2018-11-16 18:40 | REP ---
Clinical: Right upper quadrant pain. Technique: Axial contrast enhanced images from the lung bases to the pubic symphysis using 100 ml Isovue 370 intravenous contrast material with coronal and sagittal re-formations. Comparison: 01/18/2013. Findings: Moderate left and small right lower lobe consolidations along with innumerable pulmonary nodules suggest malignancy and metastatic disease. Liver, spleen, pancreas, and bilateral adrenal glands are normal. The kidneys demonstrate cortical atrophic changes along with small hypodensities suggesting renal cysts measuring up to 1.5 cm. No acute perinephric stranding or hydronephrosis. Prior cholecystectomy noted. The enteric system is without obstruction or acute inflammatory process. Colonic and sigmoid diverticulosis noted without acute diverticulitis. Pelvis demonstrates normal bladder and age-appropriate uterus/adnexa. No ascites. No free air. No obvious adenopathy. Atherosclerotic changes of the aorta and vasculature without aneurysm or dissection. Musculoskeletal structures demonstrate age-related degenerative changes and osteopenia without focal osseous abnormality. Impression: 1. Lung findings consistent with malignancy and metastatic disease. 2. Kidneys demonstrate cortical scarring and few renal cysts. 3. Diverticulosis without acute diverticulitis. 4. No further acute abdominopelvic pathology appreciated. Specifically, no ascites, focal inflammatory stranding, or adenopathy noted. Electronically Signed by Marcel Ruby MD 11/16/2018 06:32 P
[2018-11-16 19:13] LABS: MB/CK RELATIVE INDEX 7.6 (< OR =4); TROPONIN I 0.25 NG/ML (< 0.10)
[2018-11-16] MEDS ORDERED: ACETAMINOPHEN TAB 650MG DOSE (2X325MG) PO PRN (21:15)
[2018-11-16] MEDS ORDERED: BISACODYL 10 MG SUPP PR PRN (21:30)
[2018-11-16] MEDS ORDERED: LORazepam 0.5 MG TAB PO PRN (21:30)
[2018-11-16] MEDS ORDERED: ALBUTEROL SULFATE 2.5 MG/0.5 ML INH NEB SOLN INH PRN (21:30)
[2018-11-16] MEDS ORDERED: PILL CUTTER 1 EACH XX PRN (22:00)
[2018-11-16] MEDS: DOCUSATE SODIUM 100 MG CAP PO SCH (22:05)
[2018-11-16] MEDS: APIXABAN 5 MG TAB (ELIQUIS) PO SCH (22:05)
[2018-11-16] MEDS: CARVedilol 12.5 MG TAB PO SCH (22:06)
--- NOTE | 2018-11-16 23:13 | HPEPDOC ---
[facility] Medical History & Physical Date of Admission November 16, 2018 Date of Service: November 16, 2018 Attending Physician: JESSICA WARNER MD History and Physical CHIEF COMPLAINT: Failure to thrive, weakness HISTORY OF PRESENT ILLNESS: Patient is a 89-year-old female with a past medical history significant for DM, HTN, hypercholesterolemia, rectal cancer, histoplasmosis and MAC , who presents to the emergency department from [facility] with a chief complaint of i ncreased weakness and shortness of breath. Patient was discharged from [facility] on 11/11/18 after presenting originally on 11/01/18 generalized weakness and ultimately found to have a pulmonary embolism and pneumonia. Patient was treated appropriately with anticoagulation and antibiotics respectively. Patient reports that the long-term, she continued to experience weakness and lethargy, continued shortness of breath requiring 2 L of submental oxygen via nasal cannula. In the emergency department, CBC demonstrated a elevated MCV of 97.1, no leukocytosis. Chemistries showed a BUN/CR of 4/31. ProBNP was elevated at 8821. Patient demonstrates a mild and chronic elevation in her troponin of 0.25. Urine was negative for any infection. EKG was reviewed and showed a paced rhythm. Venous blood gas showed a pH of 7.38 and a PCO2 of 69.2. Blood cultures are pending. Abdomen/pelvis CT, chest CT and chest x-ray were all performed and did not demonstrate any new/acute pathology. Hospitalist team was consulted to admit the patient for failure to thrive and further PT/OT evaluation. PAST MEDICAL HISTORY: Chronic pulmonary lesions and satellite lesions secondary histoplasmosis Mycobacterium avium complex in 2000 Hypertension Hypercholesterolemia Rectal cancer s/p anterior resection Diabetes, A1c of 8.4 PAST SURGICAL HISTORY: Appendectomy Tonsillectomy Lower anterior colon resection Left upper lobectomy secondary histoplasmosis Cholecystectomy SOCIAL HISTORY: Marital status: Resides in: Patient arrived via EMS from [facility], where she currently resides for acute rehabilitation Children: Yes, daughter Employment: Retired Tobacco use:Lifelong non-smoker ETOH: Denies alcohol use Illicit drug use: None illicit drug use FAMILY HISTORY: No history of lung disease Noncontributory given patient's advanced age ALLERGIES: Please see below. REVIEW OF SYSTEMS: CONSTITUTIONAL: Patient complains of ongoing chronic fatigue. Patient denies any recent history of subjective fevers, chills, night sweats, dramatic changes in weight. HEENT: Patient reports mild headache earlier today, improved by time of admission. Denies changes in vision, difficulty swallowing CARDIOVASCULAR: Denies chest pain/discomfort, palpitations RESPIRATORY: Reports chronic history of shortness of breath, slightly worsening over the last couple of days, has been utilizing 2 L of oxygen via nasal cannula GASTROINTESTINAL: Denies abdominal pain/discomfort, nausea or vomiting, diarrhea or constipation GENITOURINARY: Denies difficulty urinating SKIN: Denies new/evolving skin lesions, no rashes. MUSCULOSKELETAL: Denies any joint, muscle aches or pains NEUROLOGICAL: Patient reports chronic weakness/fatigue, denies any focal neurologic deficits or episodes of confusion. PSYCHIATRIC: Long standing history of depression ENDOCRINE: History of diabetes, treatment recently withdrawn given patient's advanced age HEMATOLOGIC/LYMPHATIC: Recent history of PE, anticoagulated with Eliquis HOME MEDICATIONS: Please see below. PHYSICAL EXAMINATION: VITAL SIGNS: Please see below GENERAL APPEARANCE: Patient was interviewed and examined the emergency department. Patient was found to be in her hospital bed, wearing hospital clothing resting comfortably, at bedside. No acute distress, alert and oriented 3, able to answer questions appropriately and neck to be participate in her care. HEENT: Normocephalic, atraumatic, EOMI, sclera nonicteric, fair oral hygiene, his membranes dry CARDIOVASCULAR: Regular with no murmurs LUNGS: Diffuse bilateral crackles, particularly at the lung bases. ABDOMEN: Soft, nontender, non-protuberant, no guarding, no masses appreciated EXTREMITIES: Trace lower extremity edema bilaterally, improved from prior examination per . No calf tenderness or swelling bilaterally NEUROLOGICAL: No focal neurologic deficits, strength intact bilaterally in both upper and lower extremities. No aphasia or confusion. Patient appears to be at baseline mentation per who is at bedside. PSYCHIATRIC: Mood and affect appropriate given patient's current medical condition LABORATORY DATA: See below. IMAGING: Abdomen/pelvis CT (11/16/18): Lung findings consistent with malignancy and metastatic disease. Kidneys demonstrate cortical scarring with a few renal cysts. Diverticulosis without acute diverticulitis. No further acute abdominopelvic pathology appreciated. Specifically no ascites, no focal inflammatory stranding or no adenopathy. Chest CT (11/16/18): Areas of consolidation primarily involving the left lower lobe, lingula and posterior right lower lobe may be slightly increased from pr ior examination. Innumerable bilateral pulmonary nodules again noted and consistent with metastatic disease. Chest x-ray (11/16/18): Moderate left lower lobe consolidation slightly increased from prior examination. MICROBIOLOGY: Venous blood cultures pending PLAN: Failure to thrive, etiology unknown Unlikely to be infectious given that the patient does not carry leukocytosis. Imaging performed was negative for any acute pathology. Procalcitonin will be ordered for tomorrow morning Patient will be encouraged to continue eating PT/OT consults will be placed Pulmonary nodules Pulmonary nodules resident since 2000 likely secondary to prior histoplasmosis, granulomatosis During patient's last hospitalization, and pulmonology was consulted. No acute need for bronchoscopy. No further antibiotics or steroids. There was some mention of the nodules possibly being metastatic in nature. This possibility was discussed in detail with the family who was in agreement that, even in the event of metastatic disease, the patient would not pursue further intervention. CKD stage III BUN slightly increased at 31, creatinine of 1.06 Continue to monitor clinically and provide fluids as needed Anxiety and depression Continue home Zoloft 100 mg daily Diabetes Patient's diabetes medications were discontinued upon her transfer to [facility] for acute rehabilitation This was likely given patient's advanced age and prognosis Last several A1c of 8.4 Hypertension Continue home Coreg dose with a hold parameter for systolic blood pressure less than 110. History of recent pulmonary embolism Patient was hospitalized on 11/01/18 Remote history of rectal cancer Status post anterior resection, as mentioned above, some discussion as to whethe r the patient's pulmonary nodules may be recurrent colon cancer with metastases. Patient and family does not wish for active surveillance intervention at this time CODE STATUS: DNR/DNI DVT prophylaxis: Teds and sequentials Vital Signs Vital Signs Date Time Temp Pulse Resp B/P (MAP) Pulse Ox O2 Delivery O2 Flow Rate FiO2 11/16/18 20:45 60 18 146/66 (92) 97 Nasal Cannula 2.0 11/16/18 19:15 97.6 Laboratory Data Labs 24H Laboratory Tests 2 11/16/18 14:25: Immature Granulocyte % (Auto) 0.9, White Blood Count 7.9, Red Blood Count 4.21, Hemoglobin 11.8L, Hematocrit 40.9, Mean Corpuscular Volume 97.1H, Mean Corpuscular Hemoglobin 28.0, Mean Corpuscular Hemoglobin Concent 28.9L, Red Cell Distribution Width 18.2H, Platelet Count 210, Neutrophils (%) (Auto) 88.9H, Lymphocytes (%) (Auto) 3.3L, Monocytes (%) (Auto) 5.6H, Eosinophils (%) (Auto) 1.0, Basophils (%) (Auto) 0.3, Neutrophils # (Auto) 7.1, Lymphocytes # (Auto) 0.3L, Monocytes # (Auto) 0.4, Eosinophils # (Auto) 0.1, Basophils # (Auto) 0.0, Nucleated Red Blood Cells % (auto) 0.3H, Prothrombin Time 18.9H, Prothromb Time International Ratio 1.56, Anion Gap 4L, Glomerular Filtration Rate 52.3, Calcium Level 9.6, Aspartate Amino Transf (AST/SGOT) 43H, Alanine Aminotransferase (ALT/SGPT) 42, Alkaline Phosphatase 70, Total Bilirubin 0.6, Direct Bilirubin 0.2, Total Creatine Kinase 27, Creatine Kinase MB 2.0, Creatine Kinase MB Relative Index 8.89H, Troponin I 0.28H, Total Protein 6.9, Albumin 2.4L, Albumin/Globulin Ratio 0.53L, Thyroid Stimulating Hormone (TSH) 1.770 11/16/18 18:31: Total Creatine Kinase 25L, Creatine Kinase MB 2.0, Creatine Kinase MB Relative Index 7.60H, Troponin I 0.25H, Blood Gas Bicarbonate Standard 36.7, Venous Blood pH 7.387, Venous Blood Partial Pressure CO2 69.2H, Venous Blood Partial Pressure O2 101.0H, Venous Blood Total Carbon Dioxide 42.8H, Venous Blood HCO3 40.7H, Venous Blood Oxygen Saturation 97.7H, Venous Blood Base Excess 13.0H, DV-Iue-I-Type Natriuretic Peptide 8821H 11/16/18 19:00: Urine Color YELLOW, Urine Appearance CLEAR, Urine pH 5.0, Urine Specific Sherrill 1.028, Urine Protein NEGATIVE, Urine Glucose (UA) NEGATIVE, Urine Ketones NEGATIVE, Urine Blood 1+H, Urine Nitrite NEGATIVE, Urine Bilirubin NEGATIVE, Urine Urobilinogen 0.2, Urine Leukocyte Esterase NEGATIVE, Urine WBC (Auto) 1, Urine RBC (Auto) 0, Urine Hyaline Casts (Auto) 0, Urine Bacteria (Auto) NEGATIVE, Urine Squamous Epithelial Cells 2, Urine Mucus (Auto) SMALL, Urine Sperm (Auto) CBC/BMP Laboratory Tests 11/16/18 14:25 Red Blood Count 4.21, Mean Corpuscular Volume 97.1 H, Mean Corpuscular Hemoglobin 28.0, Mean Corpuscular Hemoglobin Concent 28.9 L, Red Cell Distribution Width 18.2 H, Neutrophils (%) (Auto) 88.9 H, Lymphocytes (%) (Auto) 3.3 L, Monocytes (%) (Auto) 5.6 H, Eosinophils (%) (Auto) 1.0, Basophils (%) (Auto) 0.3, Neutrophils # (Auto) 7.1, Lymphocytes # (Auto) 0.3 L, Monocytes # (Auto) 0.4, Eosinophils # (Auto) 0.1, Basophils # (Auto) 0.0 Microbiology Microbiology 11/16/18 Blood Culture, Received Pending 11/16/18 Blood Culture, Received Pending Home Medications Scheduled Apixaban (Eliquis) 5 Mg Tablet, 5 MG PO BID Carvedilol (Carvedilol) 12.5 Mg Tab, 18.75 MG PO BID Cholecalciferol (Vitamin D3) (Vitamin D3) 1,000 Unit Tablet, 2,000 UNIT PO DAILY @ 11:30 Docusate Sodium (Stool Softener) 100 Mg Capsule, 200 MG PO QPM Furosemide (Furosemide) 20 Mg Tablet, 20 MG PO DAILY Lisinopril (Lisinopril) 5 Mg Tablet, 5 MG PO DAILY Magnesium Chloride (Mag64) 64 Mg Tablet.dr, 64 MG PO BID Nut.tx.gluc.intoler,Lac-Fr,Soy (Glucerna 1.2 Raymond) 237 Ml Liquid, 120 ML PO BID Potassium Chloride (K-Tab ER) 10 Meq Tablet.er, 10 MEQ PO DAILY Sertraline HCl (Sertraline HCl) 100 Mg Tab, 100 MG PO DAILY Umeclidinium Brm/Vilanterol Tr (Anoro Ellipta 62.5-25 Mcg INH) 1 Each Blst.w.dev, 1 PUFF INH DAILY Scheduled PRN Acetaminophen (Tylenol) 325 Mg Tablet, 650 MG PO Q4H PRN for PAIN / FEVER Albuterol Sulf (Albuterol Sulfate) 2.5 Mg/3 Ml Vial.neb, 2.5 MG INH Q4H PRN for SHORTNESS OF BREATH Albuterol Sulfate (Proair Hfa) 8.5 Gm Hfa.aer.ad, 2 PUFF INH Q4H PRN for SHORTNESS OF BREATH Bisacodyl (Dulcolax) 10 Mg Supp.rect, 10 MG KS DAILY PRN for CONSTIPATION Lorazepam (Ativan) 0.5 Mg Tablet, 0.25 MG PO Q8H PRN for ANXIETY Magnesium Hydroxide (Milk of Magnesia) 400 Mg/5 Ml Oral.susp, 1,200 MG PO DAILY PRN for CONSTIPATION Sodium Chloride (Saline Nasal Clovis) 44 Ml Cl[place], 1 SPRAY NA BID PRN for NASAL DRYNESS Allergies Coded Allergies: No Known Allergies (Verified , 10/31/18) A-FIB/CHADSVASC A-FIB History Current/History of A-Fib/PAF?: No GME ATTESTATION GME ATTESTATION My faculty preceptor for this patient encounter was physically present during the encounter and was fully available. All aspects of the patient interview, examination, medical decision making process, and medical care plan development were reviewed and approved by the faculty preceptor. The faculty preceptor is aware and concurs with the plan as stated in the body of this note and will attest to such by his/her cosignature. ATTENDING NOTE I personally performed a history and physical examination of the patient and discussed the management with the resident. I reviewed the resident's note and agree with the documented findings and plan of care. IVAN GUILLEN DO November 16, 2018 23:13 JESSICA WARNER MD November 20, 2018 00:57
[2018-11-16 23:54] VITALS: BP 126/52
[2018-11-17] MEDS: MAGNESIUM CHLORIDE 64 MG TABCR (SLO MAG) PO SCH ×3 (00:44→21:45)
[2018-11-17 06:00] VITALS: BP 105/72
[2018-11-17 06:23] LABS: MEAN CORPUSCULAR HGB CONC 28.9 g/dl (32.0-36.5); MEAN CORPUSCULAR VOLUME 96.7 fl (80.0-96.0); PLATELET COUNT, AUTOMATED 189 10^3/uL (150-450); RED BLOOD COUNT 3.93 10^6/uL (4.00-5.40); WHITE BLOOD COUNT 7.4 10^3/uL (4.0-10.0)
[2018-11-17 06:41] LABS: BLOOD UREA NITROGEN 25 MG/DL (7-18); CALCIUM LEVEL 9.5 MG/DL (8.8-10.2); CARBON DIOXIDE LEVEL 40 MEQ/L (21-32); CHLORIDE LEVEL 102 MEQ/L (98-107); CREATININE FOR GFR 0.84 MG/DL (0.55-1.30); GLOMERULAR FILTRATION RATE > 60.0 (>32); GLUCOSE, FASTING 158 MG/DL (70-100); POTASSIUM SERUM 3.8 MEQ/L (3.5-5.1); SODIUM LEVEL 145 MEQ/L (136-145)
--- NOTE | 2018-11-17 07:23 | ECGEPIP ---
[facility] - ED Test Date: 2018-11-16 Pat Name: SHAHID DOWNEY Department: Room: - Gender: Female Manager Of Sustainability: [facility] : 1930 Requested By: OMAR Hudson Order Number: [id number] Reading MD: Shelton Pham Measurements Intervals Cassandra Rate: 60 P: OK: -1 QRS: QRSD: 152 T: 101 QT: 494 QTc: 494 Interpretive Statements ELECTRONIC VENTRICULAR PACEMAKER SIMILAR TO 10/01/18 Electronically Signed on 11-17-2018 7:23:16 EDT by Shelton Pham
[2018-11-17] MEDS: LISINOPRIL 5 MG TAB PO SCH (09:00)
[2018-11-17] MEDS: CARVedilol 12.5 MG TAB PO SCH ×2 (09:00→21:00)
[2018-11-17] MEDS: FUROSEMIDE 20 MG TAB PO SCH (09:13)
[2018-11-17] MEDS: SERTRALINE 100 MG TAB PO SCH (09:13)
[2018-11-17] MEDS: APIXABAN 5 MG TAB (ELIQUIS) PO SCH ×2 (09:13→21:45)
[2018-11-17] MEDS: POTASSIUM CHLORIDE 10 MEQ SR TABLET PO SCH (09:13)
--- NOTE | 2018-11-17 10:00 | IPN ---
DATE: 11/17/2018 PRIMARY CARE PROVIDER: Dr. Brigette Avila/[facility] HISTORY: Mr. Gui Figueroa was seen while rounding for the hospitalist, admitted with failure to thrive, had a recent hospitalization 11/01/2018 to 11/12/2018 for a pulmonary embolism, had healthcare-associated pneumonia, had a urinary tract infection (UTI) on admission, hypertension, type 2 diabetes. He was seen by Dr. Bran for pulmonary nodules, had actually increased in the 6-day interval between serial CT scans of the chest earlier in the month suggesting metastatic disease, extensive consolidation of left lower lobe. Echocardiogram was done that showed normal ejection fraction and some mild aortic stenosis and mild mitral regurgitation. He was admitted with failure to thrive. He feels week in a nondescript, nonspecific way. He denies cough, hemoptysis, fever, chills. He had his third CT scan of the chest now within a 3-week period, and it shows that he has increased areas of consolidation in left lower lobe, lingula, and posterior right lobe as well as innumerable bilateral pulmonary nodules, consistent with metastatic disease. PHYSICAL EXAM: 105/72, pulse of 61, respiratory rate 17, 95% oxygen saturation. GENERAL APPEARANCE: Resting comfortably in bed. Looks chronically ill. HEENT: Unremarkable. LUNGS: Decreased breath sounds. Scattered rhonchi and wheezes. HEART: Regular rate and rhythm, 1/6 systolic ejection murmur. ABDOMEN: Soft. Nontender. No masses. No peripheral edema. LABS: CBC is unchanged. Electrolytes are unchanged. IMPRESSION: 1. Recent pulmonary embolism. He is on Eliquis 5 mg twice a day which we will continue. 2. Pneumonia. He has persistent pneumonia. It is probably related to his lung cancer. He is not currently on any antibiotic therapy for this. Pneumonia looks more extensive than on previous CT scans. Will start ceftaroline for hospital-associated pneumonia. 3. Suspected metastatic lung disease. His prognosis is poor. I am planning on discussing consideration of palliative care with the patient. 4. Hypertensive heart disease. Blood pressure is well controlled on current regimen. 5. History of depression. He is on sertraline 100 mg daily which seems appropriate.
[2018-11-17] MEDS: CEFTAROLINE FOSAMIL 400 MG in D5W MINI-BAG PLUS 50 ML IV SCH ×2 (10:08→21:46)
[2018-11-17] MEDS: VITAMIN D 1,000 INTERNATIONAL UNITS TABLET PO SCH (12:31)
[2018-11-17 14:00] VITALS: BP 119/68
[2018-11-17] MEDS: DOCUSATE SODIUM 100 MG CAP PO SCH (18:24)
[2018-11-17 20:00] VITALS: BP 128/68
[2018-11-18 06:00] VITALS: BP 178/80
[2018-11-18 06:46] LABS: BASO % 0.1 % (0.0-1.0); EOS # 0.1 10^3/uL (0.0-0.50); EOS % 0.8 % (0.0-3.0); HEMOGLOBIN 11.5 g/dl (12.0-15.5); LYMPH # 0.4 10^3/uL (1.5-4.5); LYMPH % 4.1 % (24.0-44.0); MEAN CORPUSCULAR HEMOGLOBIN 27.2 pg (27.0-33.0); MEAN CORPUSCULAR HGB CONC 29.5 g/dl (32.0-36.5); MEAN CORPUSCULAR VOLUME 92.2 fl (80.0-96.0); MONO # 0.6 10^3/uL (0.0-0.8); MONO % 6.2 % (0.0-5.0); NEUTROPHILS # 8.2 10^3/uL (1.8-7.7); NEUTROPHILS % 87.6 % (36.0-66.0); PLATELET COUNT, AUTOMATED 234 10^3/uL (150-450); RED BLOOD COUNT 4.23 10^6/uL (4.00-5.40); WHITE BLOOD COUNT 9.3 10^3/uL (4.0-10.0)
[2018-11-18 07:06] LABS: BLOOD UREA NITROGEN 28 MG/DL (7-18); CALCIUM LEVEL 9.5 MG/DL (8.8-10.2); CARBON DIOXIDE LEVEL 38 MEQ/L (21-32); CHLORIDE LEVEL 100 MEQ/L (98-107); CREATININE FOR GFR 0.78 MG/DL (0.55-1.30); GLOMERULAR FILTRATION RATE > 60.0 (>32); GLUCOSE, FASTING 184 MG/DL (70-100); POTASSIUM SERUM 3.9 MEQ/L (3.5-5.1); SODIUM LEVEL 143 MEQ/L (136-145)
[2018-11-18] MEDS: CARVedilol 12.5 MG TAB PO SCH ×2 (09:00→21:00)
[2018-11-18] MEDS: CEFTAROLINE FOSAMIL 400 MG in D5W MINI-BAG PLUS 50 ML IV SCH (09:17)
[2018-11-18 09:18] VITALS: BP 178/80
[2018-11-18] MEDS: POTASSIUM CHLORIDE 10 MEQ SR TABLET PO SCH (09:18)
[2018-11-18] MEDS: APIXABAN 5 MG TAB (ELIQUIS) PO SCH ×2 (09:18→21:00)
[2018-11-18] MEDS: SERTRALINE 100 MG TAB PO SCH (09:18)
[2018-11-18] MEDS: LISINOPRIL 5 MG TAB PO SCH (09:18)
[2018-11-18] MEDS: FUROSEMIDE 20 MG TAB PO SCH (09:18)
[2018-11-18] MEDS: MAGNESIUM CHLORIDE 64 MG TABCR (SLO MAG) PO SCH ×2 (09:18→21:00)
--- NOTE | 2018-11-18 11:36 | IPN ---
DATE OF SERVICE: 11/18/2018 Mrs. Figueroa was seen on [address]. She is very weak and tired and did not want to discuss very much today. She does not give specific symptoms, instead just saying that she "feels weak all over" and asking me to call her . PHYSICAL EXAMINATION: Afebrile 178/80, pulse 67, 96% oxygen saturation. General appearance: Frail, elderly, chronically ill appearing. Lungs clear. Heart: Regular rhythm. Abdomen soft, nontender. Extremities: No clubbing or cyanosis or edema. LABS: Sodium 143, potassium 3.9, BUN 28, creatinine 0.8, glucose 184. White count is 9.3, hemoglobin 11.5, platelets 234. IMPRESSION: 1. Hospital associated pneumonia. She is on ceftaroline, it is day #2 of this. 2. Suspected metastatic lung disease. Had a long discussion with Dr. Devi who is looking over the patient's case and has treated her as an outpatient. She reviewed the CT scans, feels that metastatic lung disease is possible, it is more likely a fungal lung infection with essentially the same prognosis and will see the patient in consultation. 3. Recent pulmonary embolism. Continue Eliquis 5 mg twice daily. 4. Hypertensive heart disease. Blood pressure is elevated, we will adjust her medications. 5. History of depression. Continue Sertraline 100 mg daily. Might be a candidate to add mirtazapine to the Sertraline to help promote appetite if her oral intake does not improve. DISPOSITION: I had a long discussion first with the patient about her abnormal CT scan, then Dr. Devi, then Mrs. Figueroa's Marcus, and then finally Radha Chun, patient's daughter. They are all aware that she is chronically ill and seems to be betting progressively weaker. Her CT scan is suggestive of either disseminated fungal lung infection or metastatic lung disease which would have about the same prognosis. I doubt that she would tolerate aggressive antifungal treatment but did ask Dr. Devi to come by and discuss the case with Marcus and Radha. I spoke to Marcus Garcia and the patient about the option of Hospice and at [facility] is aware of the Hospice organization, and should aggressive treatment not be chosen, might opt for Hospice care in Radha's home versus Hospice residence. First they will be meeting with Dr. Devi and make some decision about the abnormal CT scan and whether they want to undergo any treatment. Prognosis is poor either way and I gave them an estimation of only a few months life expectancy.
[2018-11-18] MEDS: VITAMIN D 1,000 INTERNATIONAL UNITS TABLET PO SCH (11:50)
--- NOTE | 2018-11-18 12:54 | IPN ---
DATE: 11/18/2018 Ms. Figueroa is known well to my practice for history of pulmonary nodules that had been stable up until that June of this past year. She had quite a long course of recurrent infection, first started in August when I saw her in the office and started her on Levaquin and prednisone, tested negative for the flu at that point in time. She came to the hospital in September, tested positive for the flu and had dense infiltrate in the left lower lobe and diffuse infiltrate throughout the lung brock, mostly right middle lobe with some tree and bud findings. She then was treated with antibiotics and Tamiflu, was discharged and presented again in October and had not been walking since her pneumonia and presented with pulmonary embolism. She was treated at the time of her discharge. She had another CT scan again, and at that point in time Dr. Bran did an extensive consult. I would refer to her consult as this contains much of the background that I am speaking of. At that point in time it was determined no further antibiotics were needed as she had been on extensive antibiotics and if this were malignancy that the patient would not go through biopsy anyway. She was then transferred to the long-term. In the long-term she had failure to thrive. On my arrival to her room today at the request of Dr. James, the patient is sleeping in bed comfortably. When woken up she states she is short of breath and cannot clear her mucus. She states she is not in any pain. I personally reviewed the chest CTs and then also discussed the chest CTs with the radiologist. He was in agreement with my findings that there had been partial improvement in some areas and this was more likely inflammatory or infectious rather than malignant disease. She has diffuse bronchiectasis with peribronchial thickening. 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 A [id number] was obtained at the time of Dr. Bran's evaluation which was negative, which goes against a fungal infection. After having a long discussion with the family, both the , patient and daughter, I have given them the option of aggressive care, which would require saline nebs and induced sputum for AFB, cytology, aerobic, anaerobic cultures and further blood work. If this was unremarkable, a bronchoalveolar lavage could be performed however, she is at increased risk of bleeding due to her being on blood thinners for her recent pulmonary embolism. At this point in time, they stated that they would not want to put her through these procedures, that they wish to keep her comfortable. The patient herself states that she wishes to be comfortable. If she did somehow recover from this episode, she would likely have recurrent infection given the severity of her bronchiectasis. I have a suspicion this may be Mycobacterium avium which would require potentially toxic medication that she would not be able to tolerate. She is barely eating currently and has had significant downhill course. PHYSICAL EXAMINATION: Temperature is 96.9, pulse is 62, respiratory rate is 18, blood pressure is 178/80, 96% on 1 liter. GENERAL: The patient is sleeping in bed, is rhonchorous from the doorway. HEENT: Sclera clear and anicteric. Pupils equal and reactive to light. Mucous membranes are moist without lesions. CARDIAC: Regular S1-S2 without audible murmur or rub or gallop. PULMONARY: Again, diffuse rhonchi, bronchiectatic in nature. I do not auscultate a wheeze currently. There is some prolongation of expiratory phase. ABDOMEN: Is scaphoid, soft and hypoactive bowel sounds. EXTREMITIES: Pale without edema. MUSCULOSKELETAL: Significant muscle wasting and weakness. Laboratory evaluation was reviewed as mentioned above. IMPRESSION: 1. Abnormal chest ct Likely inflammatory infectious process of the lungs that is diffuse with poor overall functional status. At this point in time, I think it is very reasonable for the patient to be converted to comfort measures only as the patient just wants to be kept comfortable and does not want to go through any further diagnostic or therapeutic procedures. The patient's family is requesting that we look into a Hospice House as it would be difficult for her to take care of her at home as he is quite elderly. I will discuss this with the patient's primary hospitalist. MIRELLA
[2018-11-18] MEDS: MORPHINE 10MG/0.5ML ORAL CONCENTRATE SOLUTION U/D SL PRN ×2 (14:14→16:50)
[2018-11-18] MEDS: DOCUSATE SODIUM 100 MG CAP PO SCH (17:20)
--- NOTE | 2018-11-18 19:28 | IPN ---
DATE: 11/18/[address] Ministerio Devi had been in to examine the patient and met with the family, the decision was made that they would like to go on COMFORT MEASURES and are requesting a referral to the Hospice organization, specifically rather the Hospice House. Hospice consult was placed. COMFORT MEASURES orders were entered. I discontinued the ceftaroline, started morphine concentrated oral solution for relief of symptoms.
[2018-11-19 06:34] LABS: BASO % 0.2 % (0.0-1.0); EOS % 0.5 % (0.0-3.0); HEMOGLOBIN 11.3 g/dl (12.0-15.5); LYMPH # 0.3 10^3/uL (1.5-4.5); LYMPH % 3.7 % (24.0-44.0); MEAN CORPUSCULAR HEMOGLOBIN 27.6 pg (27.0-33.0); MEAN CORPUSCULAR VOLUME 95.4 fl (80.0-96.0); MONO # 0.4 10^3/uL (0.0-0.8); MONO % 5.4 % (0.0-5.0); NEUTROPHILS # 7.1 10^3/uL (1.8-7.7); NEUTROPHILS % 89.2 % (36.0-66.0); PLATELET COUNT, AUTOMATED 202 10^3/uL (150-450); RED BLOOD COUNT 4.09 10^6/uL (4.00-5.40)
[2018-11-19 06:53] LABS: CALCIUM LEVEL 9.2 MG/DL (8.8-10.2); CREATININE FOR GFR 0.96 MG/DL (0.55-1.30); GLOMERULAR FILTRATION RATE 58.7 (>32); POTASSIUM SERUM 4.2 MEQ/L (3.5-5.1)
[2018-11-19] MEDS: APIXABAN 5 MG TAB (ELIQUIS) PO SCH (09:00)
[2018-11-19] MEDS: FUROSEMIDE 20 MG TAB PO SCH (09:00)
[2018-11-19] MEDS: SERTRALINE 100 MG TAB PO SCH (09:00)
[2018-11-19] MEDS: POTASSIUM CHLORIDE 10 MEQ SR TABLET PO SCH (09:00)
[2018-11-19] MEDS: MAGNESIUM CHLORIDE 64 MG TABCR (SLO MAG) PO SCH (09:00)
[2018-11-19] MEDS: CARVedilol 12.5 MG TAB PO SCH (09:00)
[2018-11-19] MEDS: LISINOPRIL 5 MG TAB PO SCH (09:00)
--- NOTE | 2018-11-19 10:18 | IPNPDOC ---
Subjective Date Seen The patient was seen on 11/19/18. Subjective Chief Complaint/HPI And is on comfort measures only, comfortable, General: Reports: ROS Unobtainable Objective Physical Examination Neck Exam: Positive: Supple Chest Exam: Positive: Clear to auscultation Heart Exam: Positive: Rate Normal, Normal S1, Normal S2 Abdomen Exam: Positive: Normal bowel sounds Assessment /Plan Problems (1) Failure to thrive Status: Chronic Problem Text: Patient is DNR/DNI and only comfort measures has been requested this consult is still pending DC all home meds Comfort measures only as per family's wishes (2) Lung consolidation Status: Acute Problem Text: Patient's family has refused any further workup including bronch Comfort measures only (3) UTI (urinary tract infection) Status: Acute Plan/VTE VTE Prophylaxis Ordered?: No VS, I&O, 24H, Fishbone Vital Signs/I&O Vital Signs Date Time Temp Pulse Resp B/P (MAP) Pulse Ox O2 Delivery O2 Flow Rate FiO2 11/19/18 05:22 2.0 11/18/18 17:50 16 11/18/18 09:18 178/80 11/18/18 09:00 62 11/18/18 06:00 96.9 96 11/16/18 23:15 Nasal Cannula I&O- Last 24 Hours up to 6 AM 11/19/18 06:00 Intake Total 630 ml Balance 630 ml Laboratory Data 24H LABS Laboratory Tests 2 11/19/18 05:51: Immature Granulocyte % (Auto) 1.0, White Blood Count 8.0, Red Blood Count 4.09, Hemoglobin 11.3L, Hematocrit 39.0, Mean Corpuscular Volume 95.4, Mean Corpuscular Hemoglobin 27.6, Mean Corpuscular Hemoglobin Concent 29.0L, Red Cell Distribution Width 17.2H, Platelet Count 202, Neutrophils (%) (Auto) 89.2H, Lymphocytes (%) (Auto) 3.7L, Monocytes (%) (Auto) 5.4H, Eosinophils (%) (Auto) 0.5, Basophils (%) (Auto) 0.2, Neutrophils # (Auto) 7.1, Lymphocytes # (Auto) 0.3L, Monocytes # (Auto) 0.4, Eosinophils # (Auto) 0.0, Basophils # (Auto) 0.0, Nucleated Red Blood Cells % (auto) 0.2H, Anion Gap 2L, Glomerular Filtration Rate 58.7, Blood Urea Nitrogen 32H, Creatinine 0.96, Sodium Level 144, Potassium Level 4.2, Chloride Level 102, Carbon Dioxide Level 40H, Calcium Level 9.2 CBC/BMP Laboratory Tests 11/19/18 05:51 Red Blood Count 4.09, Mean Corpuscular Volume 95.4, Mean Corpuscular Hemoglobin 27.6, Mean Corpuscular Hemoglobin Concent 29.0 L, Red Cell Distribution Width 17.2 H, Neutrophils (%) (Auto) 89.2 H, Lymphocytes (%) (Auto) 3.7 L, Monocytes (%) (Auto) 5.4 H, Eosinophils (%) (Auto) 0.5, Basophils (%) (Auto) 0.2, Neutrophils # (Auto) 7.1, Lymphocytes # (Auto) 0.3 L, Monocytes # (Auto) 0.4, Eosinophils # (Auto) 0.0, Basophils # (Auto) 0.0, Calcium Level 9.2 Microbiology Microbiology 11/16/18 Blood Culture - Preliminary, Resulted No Growth after 48 hours. All Specime... 11/16/18 Blood Culture - Preliminary, Resulted No Growth after 48 hours. All Specime... FAWAD MCINTYRE MD November 19, 2018 10:18
[2018-11-19] MEDS ORDERED: SCOPOLAMINE 1MG TRANSDERMAL PATCH TOP SCH (11:00)
[2018-11-19] MEDS: MORPHINE 10MG/0.5ML ORAL CONCENTRATE SOLUTION U/D SL PRN ×3 (12:52→22:54)
[2018-11-19] MEDS: LORazepam 2 MG/ML VIAL (J2060) IV PRN ×2 (13:45→23:25)
== END 2018-11-20 00:30 | disposition expired | DRG 177 ==
LOC: M ED 13:31 → EDBD 13:31 → M ED INP 21:08 → M MS5PR 11-17
PROVIDERS: ADMIT Internal Medicine Nephrology; ATTEND Internal Medicine Nephrology
DX: A31.0 Pulmonary mycobacterial infection (principal); B39.2 Pulmonary histoplasmosis capsulati, unspecified; N39.0 Urinary tract infection, site not specified; C78.00 Secondary malignant neoplasm of unspecified lung; R62.7 Adult failure to thrive; E11.9 Type 2 diabetes mellitus without complications; I10 Essential (primary) hypertension; E78.00 Pure hypercholesterolemia, unspecified; F41.9 Anxiety disorder, unspecified; F32.9 Major depressive disorder, single episode, unspecified; Z51.5 Encounter for palliative care; Z66 Do not resuscitate; Z85.048 Personal history of other malignant neoplasm of rectum, rectosigmoid junction, and anus; Z90.49 Acquired absence of other specified parts of digestive tract; Z90.2 Acquired absence of lung [part of]; Z86.711 Personal history of pulmonary embolism; Z79.01 Long term (current) use of anticoagulants; Z79.899 Other long term (current) drug therapy